=== PATIENT | male | born 1985 | race Caucasian/White ===

== ENCOUNTER 2020-06-01 12:06 | Outpatient (REF) | payer OTHER, SELFPAY ==
--- NOTE | 2020-06-01 15:45 | P.PNGI_ITS ---
Subjective Subjective Date of Service: 06/01/20 Interval History: New onset Crohn's Disease--Patient has been feeling better since discharge from hospital. He is taking his Prednisone 10mg BID. Abdomen less tender. Appetite is good. His bowels are moving twice daily. No fever, no nausea no pain. Physical Exam Vital Signs and I&O and Narrative: Vital Signs and I&O: Intake & Output 05/31/20 06/01/20 06/01/20 18:59 06:59 18:59 Weight 207 lb BP-124/87; P-61; R-16; Temp-97.6 Const: General: cooperative, healthy appearing and comfortable Orientation/consciousness: oriented to person, oriented to place and oriented to time Limitations: no limitations HENMT: Head: Yes normal to inspection Resp: Effort & Inspection: normal respiratory effort Auscultation: clear to auscultation bilaterally Cardio: Rate: regular rate Rhythm: regular rhythm Heart sounds: no murmurs GI: Inspection: Yes obesity Palpation (GI): Soft to palpation, nontender and no guarding Auscultation: normal bowel sounds Rectal Exam - Male: Yes deferred Skin: Lesions: lesion noted (anterior ortiz rash less prominent) Neuro: General: oriented to person, oriented to place and oriented to time Extrem: General: Yes normal to inspection, Yes no clubbing, cyanosis or edema and Yes no calf tenderness Progress Note: A&P Assessment and plan (1) Crohns disease of small intestine: Status: Acute Assessment and Plan: Patient in med short stay --he will have labs ordered for next week to be done FRI--Friday Continue all meds. Fall Risk Details Current Medications: Current Medications Generic Name Dose Route Start Last Admin Trade Name Freq PRN Reason Stop Dose Admin Infliximab 500 mg/ Sodium 250 mls @ 125 mls/hr 06/01/20 12:45 Chloride IV ONCE OUMAR Time Spent With Patient Time: Total time spent is greater than 50% in coordination of care (as d ocumented) at patient's floor/unit and/or counseling patient: 30minutes with face to face 20minutes--patient and . Time with patient: 25 - 35 minutes
== END 2020-06-01 12:07 | disposition home or self-care (01) ==
LOC: HO.MDS 12:06
PROVIDERS: Visit Provider Internal Medicine Gastroenterology
DX: K50.00 Crohn's disease of small intestine without complications (principal)

== ENCOUNTER 2020-06-07 07:15 | Outpatient (REF) | payer OTHER, SELFPAY ==
[2020-06-07 08:06] LABS: MANUAL DIFF FLAG NO
[2020-06-07 08:14] LABS: Basophils Percent Auto 0.3 % (0-2); Eosinophils Absolute Auto 0.2 X10*3/uL (0.0-0.4); Eosinophils Percent Auto 1.8 % (0-4); Hematocrit 43.2 % (42-52); Hemoglobin 13.5 g/dl (14.0-18.0); Imm Gran Abs Auto 0.07 X10*3/uL (0.00-0.03); Imm Gran Pct Auto 0.5 % (0.0-0.4); Lymphocytes Absolute Auto 1.1 X10*3/uL (1.2-4.9); Lymphocytes Percent Auto 8.2 % (20-40); Mean Corpuscular HGB Conc 31.3 g/dl (31.0-36.0); Mean Corpuscular Hemoglobin 27.1 pg (27.0-33.0); Mean Corpuscular Volume 86.6 fL (80-98); Mean Platelet Volume 11.6 fL (9.4-12.4); Monocytes Absolute Auto 1.4 X10*3/uL (0.1-1.2); Monocytes Percent Auto 10.7 % (2-11); Neutrophils Percent Auto 78.5 % (45-73); Platelet Count 376 X10*3/uL (160-400); Red Blood Count 4.99 X10*6/uL (4.60-5.80); Red Cell Distribution Width 16.1 % (11.0-16.0); White Blood Count 12.7 X10*3/uL (4.8-10.8)
[2020-06-07 08:38] LABS: C Reactive Protein 1.07 mg/dL (< or = 0.50)
[2020-06-07 12:43] LABS: Alanine Aminotransferase 12 U/L (0-40); Albumin Level 3.8 g/dL (3.5-5.0); Alkaline Phosphatase 54 U/L (39-117); Anion Gap 10 (12-20); Aspartate Amino Transferase 11 U/L (5-37); Bilirubin Total 0.5 mg/dL (0.0-1.0); Blood Urea Nitrogen 16 mg/dL (9-16); Calcium 8.7 mg/dL (8.4-10.2); Carbon Dioxide 31 mmol/L (22-29); Chloride 101 mmol/L (96-108); Estimated Glomerular Filt Rate > 60; Glucose Random 84 mg/dL (60-115); Potassium 4.3 mmol/l (3.3-5.1); Sodium 138 mmol/L (135-145); Total Protein 5.9 g/dL (6.5-8.0)
== END 2020-06-07 07:16 | disposition home or self-care (01) ==
LOC: HO.LDS 07:15
PROVIDERS: PCP Internal Medicine; Visit Provider Internal Medicine Gastroenterology
DX: K50.00 Crohn's disease of small intestine without complications (principal)
CPT/HCPCS: 36415; 80053; 85025; 86140

== ENCOUNTER 2020-06-15 12:58 | Outpatient (REF) | payer OTHER, SELFPAY | END 2020-06-15 12:59 | disposition home or self-care (01) | LOC: HO.MDS 12:58 | PROVIDERS: PCP Internal Medicine; Visit Provider Internal Medicine Gastroenterology | DX: K50.00 Crohn's disease of small intestine without complications (principal) | CPT/HCPCS: 96413; 96415 ==

== ENCOUNTER 2020-06-28 16:42 | Outpatient (REF) | payer OTHER, SELFPAY ==
[2020-06-28 17:32] LABS: MANUAL DIFF FLAG NO
[2020-06-28 17:46] LABS: Basophils Percent Auto 0.2 % (0-2); Eosinophils Absolute Auto 0.1 X10*3/uL (0.0-0.4); Eosinophils Percent Auto 0.6 % (0-4); Hematocrit 42.2 % (42-52); Hemoglobin 12.8 g/dl (14.0-18.0); Imm Gran Abs Auto 0.02 X10*3/uL (0.00-0.03); Imm Gran Pct Auto 0.2 % (0.0-0.4); Lymphocytes Absolute Auto 1.1 X10*3/uL (1.2-4.9); Mean Corpuscular HGB Conc 30.3 g/dl (31.0-36.0); Mean Corpuscular Hemoglobin 26.8 pg (27.0-33.0); Mean Corpuscular Volume 88.3 fL (80-98); Mean Platelet Volume 11.8 fL (9.4-12.4); Monocytes Absolute Auto 0.6 X10*3/uL (0.1-1.2); Monocytes Percent Auto 6.7 % (2-11); Neutrophils Percent Auto 79.3 % (45-73); Platelet Count 296 X10*3/uL (160-400); Red Blood Count 4.78 X10*6/uL (4.60-5.80); Red Cell Distribution Width 15.5 % (11.0-16.0); White Blood Count 8.8 X10*3/uL (4.8-10.8)
[2020-06-28 18:10] LABS: Alanine Aminotransferase 14 U/L (0-40); Albumin Level 4.3 g/dL (3.5-5.0); Alkaline Phosphatase 55 U/L (39-117); Anion Gap 14 (12-20); Aspartate Amino Transferase 14 U/L (5-37); Bilirubin Total 0.2 mg/dL (0.0-1.0); Blood Urea Nitrogen 17 mg/dL (9-16); C Reactive Protein 0.08 mg/dL (< or = 0.50); Calcium 9.1 mg/dL (8.4-10.2); Carbon Dioxide 30 mmol/L (22-29); Chloride 99 mmol/L (96-108); Estimated Glomerular Filt Rate > 60; Glucose Random 94 mg/dL (60-115); Potassium 4.5 mmol/l (3.3-5.1); Sodium 138 mmol/L (135-145); Total Protein 6.6 g/dL (6.5-8.0)
== END 2020-06-28 16:43 | disposition home or self-care (01) ==
LOC: HO.LAB 16:42
PROVIDERS: PCP Internal Medicine; Visit Provider Internal Medicine Gastroenterology
DX: K50.00 Crohn's disease of small intestine without complications (principal)
CPT/HCPCS: 36415; 80053; 85025; 86140

== ENCOUNTER 2020-07-12 16:40 | Outpatient (REF) | payer OTHER, SELFPAY ==
[2020-07-12 17:07] LABS: MANUAL DIFF FLAG NO
[2020-07-12 17:13] LABS: Basophils Percent Auto 0.1 % (0-2); Eosinophils Absolute Auto 0.1 X10*3/uL (0.0-0.4); Hematocrit 40.2 % (42-52); Hemoglobin 12.7 g/dl (14.0-18.0); Imm Gran Abs Auto 0.02 X10*3/uL (0.00-0.03); Imm Gran Pct Auto 0.3 % (0.0-0.4); Lymphocytes Absolute Auto 1.1 X10*3/uL (1.2-4.9); Lymphocytes Percent Auto 15.2 % (20-40); Mean Corpuscular HGB Conc 31.6 g/dl (31.0-36.0); Mean Corpuscular Volume 88.7 fL (80-98); Mean Platelet Volume 11.2 fL (9.4-12.4); Monocytes Absolute Auto 0.6 X10*3/uL (0.1-1.2); Monocytes Percent Auto 8.1 % (2-11); Neutrophils Absolute Auto 5.5 X10*3/uL (2.0-8.3); Neutrophils Percent Auto 75.3 % (45-73); Platelet Count 271 X10*3/uL (160-400); Red Blood Count 4.53 X10*6/uL (4.60-5.80); White Blood Count 7.3 X10*3/uL (4.8-10.8)
[2020-07-12 17:40] LABS: Alanine Aminotransferase 17 U/L (0-40); Albumin Level 4.1 g/dL (3.5-5.0); Alkaline Phosphatase 54 U/L (39-117); Anion Gap 14 (12-20); Aspartate Amino Transferase 15 U/L (5-37); Bilirubin Total 0.3 mg/dL (0.0-1.0); Blood Urea Nitrogen 18 mg/dL (9-16); C Reactive Protein 0.57 mg/dL (< or = 0.50); Calcium 8.7 mg/dL (8.4-10.2); Carbon Dioxide 28 mmol/L (22-29); Chloride 102 mmol/L (96-108); Estimated Glomerular Filt Rate > 60; Glucose Random 90 mg/dL (60-115); Potassium 4.2 mmol/l (3.3-5.1); Sodium 140 mmol/L (135-145); Total Protein 6.4 g/dL (6.5-8.0)
== END 2020-07-12 16:41 | disposition home or self-care (01) ==
LOC: HO.LAB 16:40
PROVIDERS: PCP Internal Medicine; Visit Provider Internal Medicine Gastroenterology
DX: K50.00 Crohn's disease of small intestine without complications (principal)
CPT/HCPCS: 36415; 80053; 85025; 86140

== ENCOUNTER 2020-07-13 12:53 | Outpatient (REF) | payer OTHER, SELFPAY ==
--- NOTE | 2020-08-28 20:02 | CONS_ITS ---
DATE OF SERVICE: 07/13/2020 HISTORY OF PRESENT ILLNESS: The patient is a very pleasant 34-year-old [place] male who speaks reasonably good American. He is currently being seen @ his medical short-stay admission for his 3rd Remicade infusion. A quick reminder, the patient had presented at [facility] 05/23/20 acutely with abdominal pain. His evaluation had shown the presence of significant Crohn's disease involving 20 cm of the distal ileum and area of the cecum and right colon. His initial Remicade infusion was 06/01/2020. This is now his 3rd. His Remicade dosing is rounded off to 500 mg infusion dose. He is on a 5 mg per kg dosage plan. He weighed in today at 94.09 kg. Only listed allergy is penicillin. The patient tells me that he feels that he has been doing well. He is eating better. His weight has stabilized. He has been able to decrease on our sliding scale his prednisone dosing. He is concerned particularly about how his disease will affect his future. He says that he is not used to having to explaining dietary choices or avoidance of alcohol when at family gatherings. PHYSICAL EXAMINATION: Vital signs at the time of his presentation, temperature 97.7, pulse rate 63, respirations 20, blood pressure 144/77. O2 saturation 97. Constitutionally, the patient is a mildly obese male, in no acute distress. Chest is clear to auscultation and percussion. Heart is regular rate and rhythm. Abdomen is mildly distended with some degree of central obesity. No focal findings. No masses, no tenderness. Extremities are without clubbing, cyanosis, or edema. LABORATORY DATA: Laboratory testing has been done on the day before his infusion with the hemoglobin of 12.7, hematocrit of 40.2, white count of 73, and there is a normal differential. CRP on 07/12 was 0.5 (reminder, on admission 05/24, the patient's CRP was greater than 11. Repeat on 05/26 was 8.79. On 06/07, it had improved down to the level of 1.07). TPMT testing has come back as normal metabolism. Serology shows that he is hepatitis B antigen negative, hepatitis B surface antibody positive (consistent with hepatitis B vaccine). Findings from the colonoscopy done on 05/25, reminder is, the biopsies of the area of the terminal ileum showed focal active inflammation and cryptic disarray. Cecal biopsy showed chronically focally active colitis and the rest of the colonic biopsies were negative. Initial CAT scan was on 05/23/2020 with the findings consistent with bowel wall thickening and edema significant in the ascending colon with involvement of the distal small bowel including the terminal ileum. There was a small volume of fluid in the right lower quadrant, mesentery adjacent to where the inflammation was. This did not meet the criteria for either abscess or free air. No obstruction was noted on this exam. I again counseled the patient that the Crohn's disease is unfortunately a chronic recurring disease. The most important aspect when the patient is diagnosed, he is to get the disease under control both clinically and endoscopically as well as imaging. He appears to be improving with the Remicade infusions so that we are able to continue to taper his oral prednisone therapy. We will continue to address his questions over time. He is concerned about whether or not he is going to need to be on medicines all the time. He has experienced some flushing with minimal ingestion of alcohol. He has been avoiding beef and pork, these 2 meats are part of his fairly regular diet. He has not gotten his flu shot as of yet. PLAN: Continue Remicade infusions at 8 week intervals after this infusion, laboratory testing to be done in a week before the infusion if possible, day of the infusion if necessary. Further elucidation at this time of vitamin D level as well as zinc levels would be appropriate. The intent is to start azathioprine to assist with some adjunct to the Remicade to prevent, hopefully, improve or lessen the likelihood of the patient developing any antibodies to the medication. Further concerns will be continued to be addressed as his clinical status improves. Ivet Perry MD MEN/MODL / [id number] Time involved directly with the patient was 20 minutes. ROGERIOD
== END 2020-07-13 12:54 | disposition home or self-care (01) ==
LOC: HO.MDS 12:53
PROVIDERS: Visit Provider Internal Medicine Gastroenterology
DX: K50.00 Crohn's disease of small intestine without complications (principal)
CPT/HCPCS: 96413; 96415; J1745

== ENCOUNTER 2020-07-28 09:01 | Outpatient (REF) | payer OTHER, SELFPAY ==
--- NOTE | 2020-07-28 09:49 | MR_ITS ---
EXAMINATION: MR ABDOMEN WITHOUT AND WITH CONTRAST MR PELVIS WITHOUT AND WITH CONTRAST CLINICAL INFORMATION: Crohn's disease of small intestine without complications; K50.00. Age 34. COMPARISON: CT abdomen and pelvis with contrast 05/23/2020. TECHNIQUE: MR abdomen and MR pelvis are performed without and with use of 9 mL intravenous Gadavist gadolinium contrast. Imaging is performed in 3 planes. Patient had approximately 50 oz. of oral Breeza and 1 cup of water prior to imaging. FINDINGS: LUNG BASES: The visualized lung bases are unremarkable. LIVER, GALLBLADDER, AND BILIARY TREE: The liver is normal in size, smooth in contour, and normal in signal. There is no signal loss on out of phase imaging to suggest hepatic steatosis. No focal hepatic lesion or biliary ductal dilatation is present. The gallbladder is unremarkable with no evidence of gallbladder wall thickening, or obvious pericholecystic inflammatory changes. Common duct unremarkable. PANCREAS: Normal in size, contour, signal, and uniform enhancement. No peripancreatic inflammatory changes. No pancreatic ductal distention. SPLEEN: Normal. ADRENAL GLANDS: Normal. KIDNEYS AND URETERS: The kidneys are normal in size, shape, and enhance symmetrically. No hydronephrosis. No perinephric stranding. GASTROINTESTINAL TRACT: There are focal inflammatory changes involving the terminal ileum, approximately 5 cm in length. There is moderate wall thickening approximately 7 mm, low signal on T2, with hyperenhancement following gadolinium contrast. There is minor mesenteric inflammation adjacent to the ileocecal valve. No proximal obstruction. No definite involvement ascending colon. The remainder of the bowel is unremarkable. Normal appendix. No ascites or fluid collection. The findings represent marked improvement when compared with the CT 05/23/2020 which showed 20 cm length of ileal involvement along with inflammatory changes in the ascending colon, mesenteric stranding, and mild ascites. ABDOMINAL WALL: There is borderline/small fat-containing umbilical hernia and small fat-containing right inguinal hernia similar to CT. No significant hernia. LYMPH NODES: No lymphadenopathy. VASCULAR: Unremarkable. PELVIS: Unremarkable. OSSEOUS STRUCTURES: Marrow signal normal. No sacroiliitis. MR/MR abdomen wo/w con IMPRESSION: Focal active inflammatory changes distal 5 cm terminal ileum with low signal T2, moderate wall thickening and hyperenhancement following contrast. No proximal obstruction or ascites. Findings are much improved when compared with recent CT abdomen and pelvis 05/23/2020.
== END 2020-07-28 09:02 | disposition home or self-care (01) ==
LOC: HO.MRI 09:01
PROVIDERS: Visit Provider Internal Medicine Gastroenterology
DX: K50.00 Crohn's disease of small intestine without complications (principal)
CPT/HCPCS: 72197; 74183; A9585

== ENCOUNTER 2020-08-31 11:40 | Outpatient (REF) | payer OTHER, SELFPAY ==
[2020-08-31 12:39] LABS: MANUAL DIFF FLAG NO
[2020-08-31 12:41] LABS: Basophils Percent Auto 0.4 % (0-2); Eosinophils Absolute Auto 0.2 X10*3/uL (0.0-0.4); Eosinophils Percent Auto 2.3 % (0-4); Hematocrit 46.3 % (42-52); Hemoglobin 14.8 g/dl (14.0-18.0); Imm Gran Abs Auto 0.02 X10*3/uL (0.00-0.03); Imm Gran Pct Auto 0.2 % (0.0-0.4); Lymphocytes Percent Auto 12.4 % (20-40); Mean Corpuscular Hemoglobin 27.9 pg (27.0-33.0); Mean Corpuscular Volume 87.2 fL (80-98); Mean Platelet Volume 11.8 fL (9.4-12.4); Monocytes Absolute Auto 0.6 X10*3/uL (0.1-1.2); Monocytes Percent Auto 7.2 % (2-11); Neutrophils Absolute Auto 6.5 X10*3/uL (2.0-8.3); Neutrophils Percent Auto 77.5 % (45-73); Platelet Count 309 X10*3/uL (160-400); Red Blood Count 5.31 X10*6/uL (4.60-5.80); Red Cell Distribution Width 14.7 % (11.0-16.0); White Blood Count 8.3 X10*3/uL (4.8-10.8)
[2020-08-31 13:16] LABS: Alanine Aminotransferase 17 U/L (0-40); Albumin Level 4.9 g/dL (3.5-5.0); Alkaline Phosphatase 54 U/L (39-117); Anion Gap 11 (12-20); Aspartate Amino Transferase 15 U/L (5-37); Bilirubin Total 0.5 mg/dL (0.0-1.0); Blood Urea Nitrogen 16 mg/dL (9-16); C Reactive Protein 0.05 mg/dL (< or = 0.50); Calcium 9.7 mg/dL (8.4-10.2); Carbon Dioxide 33 mmol/L (22-29); Chloride 100 mmol/L (96-108); Estimated Glomerular Filt Rate > 60; Glucose Random 92 mg/dL (60-115); Sodium 140 mmol/L (135-145); Total Protein 7.6 g/dL (6.5-8.0)
[2020-09-05 03:18] LABS: Zinc 95 mcg/dL (60-130)
[2020-09-05 16:07] LABS: Vitamin D 25-OH, D2 <4 ng/mL; Vitamin D 25-OH, D3 39 ng/mL; Vitamin D 25-OH, Total 39 ng/mL (30-100)
[2020-09-06 11:05] LABS: 6-MMPN 1582 (<5700); 6-TGN 122 (235-400)
== END 2020-08-31 11:41 | disposition home or self-care (01) ==
LOC: HO.LAB 11:40
PROVIDERS: Visit Provider Internal Medicine Gastroenterology
DX: K50.00 Crohn's disease of small intestine without complications (principal)
CPT/HCPCS: 36415; 80053; 82306; 84630; 85025; 86140

== ENCOUNTER 2020-09-07 13:01 | Outpatient (REF) | payer OTHER, SELFPAY ==
--- NOTE | 2020-09-07 15:11 | PM.GIPN ---
Subjective Subjective Date of Service: 09/07/20 Interval History: 34 yo male who has recently dx-Significant complex Crohn's Disease. He is here for his Remicade infusion--medial short stay. He tells me that he has continued to feel better. Less abdominal pain. DATE OF SERVICE--WAS 09/07/20--MEDICAL SHORT STAY UNIT. Physical Exam Vital Signs: Vital Signs: Temp: 98.8; BP: 138/94; P-66; R-16 Const: General: healthy appearing and alert; No acute distress Nutritional Appearance: overweight Orientation/consciousness: patient oriented x3 Resp: Effort & Inspection: normal respiratory effort Auscultation: clear to auscultation bilaterally Cardio: Rate: regular rate Rhythm: regular rhythm Heart sounds: no murmurs Skin: General skin exam: no rashes or lesions noted and elasticity normal Lesions: no lesions Neuro: General: patient oriented x3 Extrem: General: Yes no clubbing, cyanosis or edema Progress Note: A&P Assessment and plan (1) Crohns disease of small intestine: Status: Acute Assessment and Plan: Weight--200.6 Taking his Azathioprine--50mg BID Still on Prednisone 10mg--Tomorrow decrease to 7.5mg for 7 days, then 5mg for 7 days, then stay on 5mg qod--call office in 4weeks. Will consider stopping Steroids. Will prob need increased dosing of the Azathioprine. Time Spent With Patient Time: Total time spent is greater than 50% in coordination of care (as documented) at patient's floor/unit and/or counseling patient: 20 minutes. Prednisone taper reviewed. Time with patient: 15 - 24 minutes
== END 2020-09-07 13:02 | disposition home or self-care (01) ==
LOC: HO.MDS 13:01
PROVIDERS: PCP Internal Medicine; Visit Provider Internal Medicine Gastroenterology
DX: K50.00 Crohn's disease of small intestine without complications (principal)
CPT/HCPCS: 96413; 96415; 99225; J1745

== ENCOUNTER 2020-10-05 16:43 | Outpatient (REF) | payer OTHER, SELFPAY ==
[2020-10-05 17:38] LABS: MANUAL DIFF FLAG NO
[2020-10-05 17:44] LABS: Basophils Absolute Auto 0.1 X10*3/uL (0.0-0.2); Basophils Percent Auto 0.7 % (0-2); Eosinophils Absolute Auto 0.9 X10*3/uL (0.0-0.4); Eosinophils Percent Auto 12.4 % (0-4); Hematocrit 41.1 % (42-52); Hemoglobin 12.9 g/dl (14.0-18.0); Imm Gran Abs Auto 0.02 X10*3/uL (0.00-0.03); Imm Gran Pct Auto 0.3 % (0.0-0.4); Lymphocytes Absolute Auto 1.3 X10*3/uL (1.2-4.9); Lymphocytes Percent Auto 18.8 % (20-40); Mean Corpuscular HGB Conc 31.4 g/dl (31.0-36.0); Mean Corpuscular Hemoglobin 28.1 pg (27.0-33.0); Mean Corpuscular Volume 89.5 fL (80-98); Mean Platelet Volume 11.9 fL (9.4-12.4); Monocytes Absolute Auto 0.8 X10*3/uL (0.1-1.2); Monocytes Percent Auto 10.8 % (2-11); Platelet Count 284 X10*3/uL (160-400); Red Blood Count 4.59 X10*6/uL (4.60-5.80); Red Cell Distribution Width 14.6 % (11.0-16.0)
[2020-10-05 18:01] LABS: C Reactive Protein 0.27 mg/dL (< or = 0.50)
== END 2020-10-05 16:44 | disposition home or self-care (01) ==
LOC: HO.LAB 16:43
PROVIDERS: PCP Internal Medicine; Visit Provider Internal Medicine Gastroenterology
DX: K50.00 Crohn's disease of small intestine without complications (principal)
CPT/HCPCS: 36415; 85025; 86140

== ENCOUNTER 2020-10-19 16:53 | Outpatient (REF) | payer OTHER, SELFPAY ==
[2020-10-26 11:52] LABS: 6-MMPN 9129 (<5700); 6-TGN 339 (235-400)
== END 2020-10-19 16:54 | disposition home or self-care (01) ==
LOC: HO.LAB 16:53
PROVIDERS: PCP Internal Medicine; Visit Provider Internal Medicine Gastroenterology
DX: K50.00 Crohn's disease of small intestine without complications (principal)
CPT/HCPCS: 36415

== ENCOUNTER 2020-11-02 12:00 | Outpatient (REF) | payer OTHER, SELFPAY | END 2020-11-02 12:01 | disposition home or self-care (01) | LOC: HO.MDS 12:00 | PROVIDERS: PCP Internal Medicine; Visit Provider Internal Medicine Gastroenterology | DX: K50.00 Crohn's disease of small intestine without complications (principal) | CPT/HCPCS: 96413; 96415; J1745 ==

== ENCOUNTER 2020-12-01 08:30 | Outpatient (REF) | payer OTHER, SELFPAY ==
[2020-12-01 09:12] LABS: MANUAL DIFF FLAG NO
[2020-12-01 09:15] LABS: Basophils Percent Auto 0.6 % (0-2); Eosinophils Absolute Auto 0.4 X10*3/uL (0.0-0.4); Eosinophils Percent Auto 7.9 % (0-4); Hematocrit 39.5 % (42-52); Hemoglobin 12.8 g/dl (14.0-18.0); Imm Gran Abs Auto 0.01 X10*3/uL (0.00-0.03); Imm Gran Pct Auto 0.2 % (0.0-0.4); Lymphocytes Absolute Auto 0.7 X10*3/uL (1.2-4.9); Lymphocytes Percent Auto 14.1 % (20-40); Mean Corpuscular HGB Conc 32.4 g/dl (31.0-36.0); Mean Corpuscular Hemoglobin 29.5 pg (27.0-33.0); Mean Platelet Volume 11.8 fL (9.4-12.4); Monocytes Absolute Auto 0.7 X10*3/uL (0.1-1.2); Monocytes Percent Auto 13.2 % (2-11); Neutrophils Absolute Auto 3.3 X10*3/uL (2.0-8.3); Platelet Count 212 X10*3/uL (160-400); Red Blood Count 4.34 X10*6/uL (4.60-5.80); Red Cell Distribution Width 15.7 % (11.0-16.0); White Blood Count 5.2 X10*3/uL (4.8-10.8)
[2020-12-01 09:37] LABS: Alanine Aminotransferase 24 U/L (0-40); Albumin Level 4.2 g/dL (3.5-5.0); Alkaline Phosphatase 53 U/L (39-117); Anion Gap 10 (12-20); Aspartate Amino Transferase 20 U/L (5-37); Bilirubin Total 0.5 mg/dL (0.0-1.0); Blood Urea Nitrogen 12 mg/dL (9-16); C Reactive Protein 1.56 mg/dL (< or = 0.50); Calcium 8.9 mg/dL (8.4-10.2); Carbon Dioxide 30 mmol/L (22-29); Chloride 103 mmol/L (96-108); Estimated Glomerular Filt Rate > 60; Glucose Random 112 mg/dL (60-115); Potassium 4.1 mmol/L (3.3-5.1); Sodium 139 mmol/L (135-145); Total Protein 6.4 g/dL (6.5-8.0)
[2020-12-06 14:37] LABS: 6-MMPN 582 (<5700); 6-TGN 200 (235-400)
[2020-12-07 07:46] LABS: Prometheus ANSER IFX SEE SEPARATE REPORT
== END 2020-12-01 08:31 | disposition home or self-care (01) ==
LOC: HO.LAB 08:30
PROVIDERS: PCP Internal Medicine; Visit Provider Internal Medicine Gastroenterology
DX: K50.00 Crohn's disease of small intestine without complications (principal)
CPT/HCPCS: 36415; 80053; 80230; 82542; 85025; 86140

== ENCOUNTER 2020-12-13 16:41 | Outpatient (REF) | payer OTHER, SELFPAY ==
[2020-12-13 18:08] LABS: MANUAL DIFF FLAG NO
[2020-12-13 18:10] LABS: Basophils Percent Auto 0.7 % (0-2); Eosinophils Absolute Auto 0.5 X10*3/uL (0.0-0.4); Eosinophils Percent Auto 8.9 % (0-4); Hematocrit 40.4 % (42-52); Hemoglobin 12.7 g/dl (14.0-18.0); Imm Gran Abs Auto 0.01 X10*3/uL (0.00-0.03); Imm Gran Pct Auto 0.2 % (0.0-0.4); Lymphocytes Absolute Auto 1.2 X10*3/uL (1.2-4.9); Lymphocytes Percent Auto 20.2 % (20-40); Mean Corpuscular HGB Conc 31.4 g/dl (31.0-36.0); Mean Corpuscular Hemoglobin 28.5 pg (27.0-33.0); Mean Corpuscular Volume 90.8 fL (80-98); Mean Platelet Volume 12.9 fL (9.4-12.4); Monocytes Absolute Auto 0.6 X10*3/uL (0.1-1.2); Monocytes Percent Auto 9.3 % (2-11); Neutrophils Absolute Auto 3.7 X10*3/uL (2.0-8.3); Neutrophils Percent Auto 60.7 % (45-73); Platelet Count 278 X10*3/uL (160-400); Red Blood Count 4.45 X10*6/uL (4.60-5.80); Red Cell Distribution Width 15.7 % (11.0-16.0)
[2020-12-13 18:30] LABS: Alanine Aminotransferase 30 U/L (0-40); Albumin Level 4.3 g/dL (3.5-5.0); Alkaline Phosphatase 54 U/L (39-117); Anion Gap 13 (12-20); Aspartate Amino Transferase 32 U/L (5-37); Bilirubin Total 0.4 mg/dL (0.0-1.0); Blood Urea Nitrogen 14 mg/dL (9-16); C Reactive Protein 0.06 mg/dL (< or = 0.50); Calcium 9.1 mg/dL (8.4-10.2); Carbon Dioxide 28 mmol/L (22-29); Chloride 104 mmol/L (96-108); Estimated Glomerular Filt Rate > 60; Glucose Random 84 mg/dL (60-115); Sodium 140 mmol/L (135-145); Total Protein 6.6 g/dL (6.5-8.0)
== END 2020-12-13 16:42 | disposition home or self-care (01) ==
LOC: HO.LAB 16:41
PROVIDERS: PCP Internal Medicine; Visit Provider Internal Medicine Gastroenterology
DX: K50.00 Crohn's disease of small intestine without complications (principal)
CPT/HCPCS: 36415; 80053; 85025; 86140

== ENCOUNTER 2020-12-25 11:59 | Outpatient (REF) | payer OTHER, SELFPAY ==
--- NOTE | 2020-12-25 12:58 | PM.GIPN ---
Subjective Subjective Date of Service: 12/25/20 Interval History: 35 yo male with known Crohn's Disease is in Medical Short stary today for his Remicade infusion. He says he is ok today. He has days where he awakens with a slight headache and does not feel great--but this passes as the day goes on. He is trying to follow a healthier diet. He would like to take a Protein supplement. He is starting to exercise more regularly. He does note a left sided back discomfort at times. (He does lift items @ work usually no heavier than 25 #). A couple weeks ago he had had an abdominal pain-moderate intensity. It went away within 24-48hr. He did complete the antibx that I had called in for him. Physical Exam Vital Signs: Vital Signs: TEMP:98.1; P-68 regular; R-16; BP 148/93 Resp: Effort & Inspection: normal respiratory effort and able to speak in complete sentences Cardio: Rate: regular rate Rhythm: regular rhythm GI: Palpation (GI): Soft to palpation, nontender, no guarding and no masses Skin: General skin exam: no rashes or lesions noted Extrem: General: Yes no clubbing, cyanosis or edema Progress Note: A&P Assessment and plan (1) Crohns disease of small intestine: Status: Acute Assessment and Plan: From July:[address] [address]Pctxeiqy Resonance ReportSigned Patient: Tutu KrishnanarMR#: [id number]: 1985Acct:[id number]/Sex: 34 / MADM Date: 07/28/20Loc: [facility].MRIAttending Dr: Ivet Perry MD Ordering Physician: Ivet Perry MD Date of Service: 07/28/20 Procedure(s): MR abdomen wo/w con Accession Number(s): [id number] cc: Ivet Perry MD~ EXAMINATION: MR ABDOMEN WITHOUT AND WITH CONTRAST MR PELVIS WITHOUT AND WITH CONTRAST CLINICAL INFORMATION: Crohn's disease of small intestine without complications; K50.00. Age 34. COMPARISON: CT abdomen and pelvis with contrast 05/23/2020. TECHNIQUE: MR abdomen and MR pelvis are performed without and with use of 9 mL intravenous Gadavist gadolinium contrast. Imaging is performed in 3 planes. Patient had approximately 50 oz. of oral Breeza and 1 cup of water prior to imaging. FINDINGS: LUNG BASES: The visualized lung bases are unremarkable. LIVER, GALLBLADDER, AND BILIARY TREE: The liver is normal in size, smooth in contour, and normal in signal. There is no signal loss on out of phase imaging to suggest hepatic steatosis. No focal hepatic lesion or biliary ductal dilatation is present. The gallbladder is unremarkable with no evidence of gallbladder wall thickening, or obvious pericholecystic inflammatory changes. Common duct unremarkable. PANCREAS: Normal in size, contour, signal, and uniform enhancement. No peripancreatic inflammatory changes. No pancreatic ductal distention. SPLEEN: Normal. ADRENAL GLANDS: Normal. KIDNEYS AND URETERS: The kidneys are normal in size, shape, and enhance symmetrically. No hydronephrosis. No perinephric stranding. GASTROINTESTINAL TRACT: There are focal inflammatory changes involving the terminal ileum, approximately 5 cm in length. There is moderate wall thickening approximately 7 mm, low signal on T2, with hyperenhancement following gadolinium contrast. There is minor mesenteric inflammation adjacent to the ileocecal valve. No proximal obstruction. No definite involvement ascending colon. The remainder of the bowel is unremarkable. Normal appendix. No ascites or fluid collection. The findings represent marked improvement when compared with the CT 05/23/2020 which showed 20 cm length of ileal involvement along with inflammatory changes in the ascending colon, mesenteric stranding, and mild ascites. DISCUSSION: Patient had significant disease @ time of presentation. Unclear with recent episode if there was a microabcess which cleared with antibx or a miniflare. Discussed with patient repeating an MRE in early January to reassess response to treatment or any suggestion of progressive disease. At that time labs to be repeated ? to include Pre infusion Remicade/ab levels. I would seriously consider referring to [facility] who is following some of my other patients.--Any earlier symptoms imaging to be done sooner. Did discuss protein calorie nutrition and exercise. Fall Risk Details Current Medications: Current Medications Generic Name Dose Route Start Last Admin Trade Name Freq PRN Reason Stop Dose Admin Infliximab 500 mg/ Sodium 250 mls @ 125 mls/hr 12/25/20 12:45 Chloride IV 12/25/20 14:44 ONCE ONE Time Spent With Patient Time: Total time spent is greater than 50% in coordination of care (as documented) at patient's floor/unit and/or counseling patient:35minutes Time with patient: 25 - 35 minutes
== END 2020-12-25 12:00 | disposition home or self-care (01) ==
LOC: HO.MDS 11:59
PROVIDERS: PCP Internal Medicine; Visit Provider Internal Medicine Gastroenterology
DX: K50.00 Crohn's disease of small intestine without complications (principal)
CPT/HCPCS: 96413; 96415; 99225; J1745

== ENCOUNTER 2021-02-08 09:11 | Outpatient (REF) | payer OTHER, SELFPAY ==
--- NOTE | ~2021-02-08 | MR_ITS ---
EXAMINATION: MRI ABDOMEN AND PELVIS (MR ENTEROGRAPHY) WITH AND WITHOUT CONTRAST CLINICAL INFORMATION: Exam K50.00 - Crohn's disease of small intestine COMPARISON: 07/28/2020 exam TECHNIQUE: Multiple routine MRI sequences through the abdomen and pelvis were obtained on a high-field 1.5 Ena MRI. Pre-and postcontrast images with 8.5 mL of gadavist intravenous contrast was utilized. Bowel distention with Breeza oral contrast was given prior to imaging. FINDINGS: The small bowel was well distended with oral contrast. The bowel motion peristalsis did not significantly degrade the interpretation of the study. There is mild mucosal enhancement and thickening seen to the terminal ileum but this has shown significant improvement from the prior study. The mild wall thickening and enhancement extending for length of approximately 3 cm currently. There is no evidence for fixed stenosis or prestenotic dilatation in the distal ileum proximal to this region. No significant perienteric inflammatory changes currently either. I do not appreciate any obvious fistulization or focal conglomeration of bowel loops. No skip lesion seen in the more proximal small bowel. Normal-appearing appendix in the retrocecal location. No evidence for interloop abscess Although tailored to evaluate the bowel, I do not appreciate any focal abnormality within the visualized portions of the liver, gallbladder, kidneys, adrenals, or pancreas. Spleen is mildly prominent measuring 15.1 cm in maximal dimension. MR/MR abdomen wo/w con IMPRESSION: There is been significant improvement from the prior study. There is now some very mild persistent wall thickening and mild mucosal enhancement extending for approximately 3 cm in the terminal ileum. The amount of enhancement and perienteric inflammatory changes has significantly improved from the 07/28/2020 study. I do not appreciate any evidence for obstruction, fistulization, or abscess at this time.
== END 2021-02-08 09:12 | disposition home or self-care (01) ==
LOC: HO.MRI 09:11
PROVIDERS: Visit Provider Internal Medicine Gastroenterology
DX: K50.00 Crohn's disease of small intestine without complications (principal)
CPT/HCPCS: 72197; 74183; A9585

== ENCOUNTER 2021-02-20 12:01 | Outpatient (REF) | payer OTHER, SELFPAY | END 2021-02-20 12:02 | disposition home or self-care (01) | LOC: HO.MDS 12:01 | PROVIDERS: PCP Internal Medicine; Visit Provider Internal Medicine Gastroenterology | DX: K50.00 Crohn's disease of small intestine without complications (principal) | CPT/HCPCS: 96413; 96415; J1745 ==

== ENCOUNTER 2021-03-16 11:53 | Outpatient (REF) | payer OTHER, MEDICAID, SELFPAY ==
[2021-03-16 15:05] LABS: MANUAL DIFF FLAG NO
[2021-03-16 15:09] LABS: Basophils Percent Auto 0.5 % (0-2); Eosinophils Absolute Auto 0.5 X10*3/uL (0.0-0.4); Eosinophils Percent Auto 8.3 % (0-4); Hematocrit 38.7 % (42-52); Hemoglobin 12.3 g/dl (14.0-18.0); Imm Gran Abs Auto 0.02 X10*3/uL (0.00-0.03); Imm Gran Pct Auto 0.4 % (0.0-0.4); Lymphocytes Absolute Auto 1.1 X10*3/uL (1.2-4.9); Lymphocytes Percent Auto 19.6 % (20-40); Mean Corpuscular HGB Conc 31.8 g/dl (31.0-36.0); Mean Corpuscular Hemoglobin 28.9 pg (27.0-33.0); Mean Corpuscular Volume 91.1 fL (80-98); Mean Platelet Volume 12.1 fL (9.4-12.4); Monocytes Absolute Auto 0.4 X10*3/uL (0.1-1.2); Monocytes Percent Auto 7.8 % (2-11); Neutrophils Absolute Auto 3.5 X10*3/uL (2.0-8.3); Neutrophils Percent Auto 63.4 % (45-73); Platelet Count 235 X10*3/uL (160-400); Red Blood Count 4.25 X10*6/uL (4.60-5.80); Red Cell Distribution Width 15.1 % (11.0-16.0); White Blood Count 5.5 X10*3/uL (4.8-10.8)
[2021-03-16 15:35] LABS: Alanine Aminotransferase 23 U/L (0-40); Albumin Level 4.2 g/dL (3.5-5.0); Alkaline Phosphatase 63 U/L (39-117); Anion Gap 11 (12-20); Aspartate Amino Transferase 31 U/L (5-37); Bilirubin Total 0.3 mg/dL (0.0-1.0); Blood Urea Nitrogen 17 mg/dL (9-16); C Reactive Protein 0.04 mg/dL (< or = 0.50); Calcium 9.2 mg/dL (8.4-10.2); Carbon Dioxide 29 mmol/L (22-29); Chloride 106 mmol/L (96-108); Estimated Glomerular Filt Rate > 60; Glucose Random 90 mg/dL (60-115); Potassium 4.6 mmol/L (3.3-5.1); Sodium 141 mmol/L (135-145); Total Protein 6.5 g/dL (6.5-8.0)
[2021-03-16 15:57] LABS: Ferritin 20 ng/mL (20-250)
[2021-03-16 16:06] LABS: Folate 10.1 ng/mL (> or = 4.0); Vitamin B12 251 pg/mL (200-900)
[2021-03-19 20:16] LABS: Zinc 61 mcg/dL (60-130)
== END 2021-03-16 11:54 | disposition home or self-care (01) ==
LOC: HO.LAB 11:53
PROVIDERS: PCP Internal Medicine; Visit Provider Internal Medicine Gastroenterology
DX: K50.00 Crohn's disease of small intestine without complications (principal); K75.81 Nonalcoholic steatohepatitis (NASH); Z79.899 Other long term (current) drug therapy
CPT/HCPCS: 36415; 80053; 82607; 82728; 82746; 84630; 85025; 86140

== ENCOUNTER 2021-04-17 13:45 | Outpatient (REF) | payer OTHER, MEDICAID, SELFPAY | END 2021-04-17 13:46 | disposition home or self-care (01) | LOC: HO.MDS 13:45 | PROVIDERS: Visit Provider Internal Medicine Gastroenterology | DX: K50.00 Crohn's disease of small intestine without complications (principal) | CPT/HCPCS: 96413; 96415; J1745 ==

== ENCOUNTER 2021-05-14 07:16 | Outpatient (REF) | payer OTHER, SELFPAY ==
[2021-05-14 08:33] LABS: MANUAL DIFF FLAG NO
[2021-05-14 08:40] LABS: Basophils Percent Auto 0.5 % (0-2); Eosinophils Absolute Auto 0.5 X10*3/uL (0.0-0.4); Eosinophils Percent Auto 6.9 % (0-4); Hematocrit 40.3 % (42-52); Hemoglobin 12.8 g/dl (14.0-18.0); Imm Gran Abs Auto 0.02 X10*3/uL (0.00-0.03); Imm Gran Pct Auto 0.3 % (0.0-0.4); Lymphocytes Absolute Auto 1.4 X10*3/uL (1.2-4.9); Lymphocytes Percent Auto 18.7 % (20-40); Mean Corpuscular HGB Conc 31.8 g/dl (31.0-36.0); Mean Corpuscular Hemoglobin 28.8 pg (27.0-33.0); Mean Corpuscular Volume 90.6 fL (80-98); Mean Platelet Volume 11.7 fL (9.4-12.4); Monocytes Absolute Auto 0.7 X10*3/uL (0.1-1.2); Monocytes Percent Auto 10.1 % (2-11); Neutrophils Absolute Auto 4.7 X10*3/uL (2.0-8.3); Neutrophils Percent Auto 63.5 % (45-73); Platelet Count 253 X10*3/uL (160-400); Red Blood Count 4.45 X10*6/uL (4.60-5.80); White Blood Count 7.3 X10*3/uL (4.8-10.8)
[2021-05-14 09:02] LABS: Alanine Aminotransferase 23 U/L (0-40); Albumin Level 4.3 g/dL (3.5-5.0); Alkaline Phosphatase 59 U/L (39-117); Anion Gap 10 (12-20); Aspartate Amino Transferase 25 U/L (5-37); Bilirubin Total 0.8 mg/dL (0.0-1.0); Blood Urea Nitrogen 17 mg/dL (9-16); C Reactive Protein 0.04 mg/dL (< or = 0.50); Calcium 9.6 mg/dL (8.4-10.2); Carbon Dioxide 31 mmol/L (22-29); Chloride 102 mmol/L (96-108); Estimated Glomerular Filt Rate > 60; Glucose Random 90 mg/dL (60-115); Potassium 4.2 mmol/L (3.3-5.1); Sodium 139 mmol/L (135-145); Total Protein 6.6 g/dL (6.5-8.0)
== END 2021-05-14 07:17 | disposition home or self-care (01) ==
LOC: HO.LAB 07:16
PROVIDERS: PCP Internal Medicine; Visit Provider Internal Medicine Gastroenterology
DX: K50.00 Crohn's disease of small intestine without complications (principal)
CPT/HCPCS: 36415; 80053; 85025; 86140

== ENCOUNTER 2021-05-24 08:16 | Outpatient (REF) | payer OTHER, SELFPAY ==
[2021-05-29 20:52] LABS: Calprotectin, Fecal 42 mcg/g
== END 2021-05-24 08:17 | disposition home or self-care (01) ==
LOC: HO.LNP 08:16
PROVIDERS: Visit Provider Internal Medicine Gastroenterology
DX: K50.00 Crohn's disease of small intestine without complications (principal)
CPT/HCPCS: 83993

== ENCOUNTER 2021-06-13 12:52 | Outpatient (REF) | payer OTHER, SELFPAY ==
[2021-06-13 14:38] LABS: Hematocrit 39.8 % (42-52); Mean Corpuscular HGB Conc 32.7 g/dl (31.0-36.0); Mean Corpuscular Hemoglobin 29.5 pg (27.0-33.0); Mean Corpuscular Volume 90.5 fL (80-98); Mean Platelet Volume 11.7 fL (9.4-12.4); Platelet Count 245 X10*3/uL (160-400); Red Cell Distribution Width 14.7 % (11.0-16.0); White Blood Count 5.4 X10*3/uL (4.8-10.8)
[2021-06-13 15:21] LABS: Alanine Aminotransferase 22 U/L (0-40); Albumin Level 4.1 g/dL (3.5-5.0); Alkaline Phosphatase 69 U/L (39-117); Anion Gap 11 (12-20); Aspartate Amino Transferase 24 U/L (5-37); Bilirubin Total 0.3 mg/dL (0.0-1.0); Blood Urea Nitrogen 18 mg/dL (9-16); C Reactive Protein 0.03 mg/dL (< or = 0.50); Calcium 9.1 mg/dL (8.4-10.2); Carbon Dioxide 26 mmol/L (22-29); Chloride 103 mmol/L (96-108); Estimated Glomerular Filt Rate > 60; Glucose Random 107 mg/dL (60-115); Potassium 4.3 mmol/L (3.3-5.1); Sodium 136 mmol/L (135-145); Total Protein 6.4 g/dL (6.5-8.0)
[2021-06-13 15:25] LABS: Erythrocyte Sedimentation Rate 5 MM/HR (0-15)
[2021-06-13 17:44] LABS: Appearance Urine CLEAR; Color Urine YELLOW; Glucose Urine UA NEG (NEG); Leukocyte Esterase Urine NEG (NEG); Nitrite Urine NEG (NEG); Specific Gravity - Urine 1.015 (1.005-1.025); Urine Blood NEG (NEG); Urine Ketones NEG (NEG); Urine Protein NEG (NEG-TRACE)
[2021-06-18 10:12] LABS: Zinc 58 mcg/dL (60-130)
== END 2021-06-13 12:53 | disposition home or self-care (01) ==
LOC: HO.MDS 12:52
PROVIDERS: PCP Internal Medicine; Visit Provider Internal Medicine Gastroenterology
DX: K50.00 Crohn's disease of small intestine without complications (principal); R30.0 Dysuria
CPT/HCPCS: 36415; 80053; 80230; 81003; 82542; 84630; 85027; 85652; 86140; 96413; 96415; J1745

== ENCOUNTER 2021-08-08 06:11 | Outpatient (REF) | payer OTHER, SELFPAY ==
--- NOTE | ~2021-08-08 | CT_ITS ---
EXAMINATION: CT ENTEROGRAPHY ABDOMEN AND PELVIS WITH CONTRAST CLINICAL INFORMATION: Periumbilical pain COMPARISON: MR of the abdomen most recent January [address] of the abdomen and pelvis May 2020 TECHNIQUE: Study performed with oral VoLumen (1350 mL) and 480 mL of water to distend the abdomen. The patient was injected with 85 mL Omnipaque 350 intravenous contrast which was administered without adverse effect. Coronal and sagittal reformatted images were obtained at the technologist's workstation. This CT examination was performed using dose optimization techniques as appropriate, variously including the following: *Automated exposure control *Adjustment of mA and/or kV according to patient size (this includes techniques or standardized protocols for targeted exams where dose is matched to indication/reason for exam; i.e. extremities or head) *Use of iterative reconstruction technique DLP: 404 mGy-cm FINDINGS: GASTROINTESTINAL FINDINGS: Stomach: Well-distended and normal in appearance. Small intestine: Satisfactorily distended. There may be minimal wall thickening and enhancement of the terminal ileum. The small bowel is otherwise normal in appearance. Large intestine: Well-distended and normal in appearance. No perirectal changes demonstrated. The appendix is normal. Additional findings: No abnormal enhancement of the vasa recta or significant mesenteric or retroperitoneal lymphadenopathy is seen. No abdominal abscess or fistulous tract demonstrated. ABDOMINAL AND PELVIC CT FINDINGS: Liver, gallbladder, biliary tract: Normal Pancreas: Normal Spleen: Normal Adrenal glands and kidneys: The adrenal glands are normal appearing. There is mild bilateral hydronephrosis. There is bilateral ureteral dilatation, left greater than right. The left ureter is dilated down to the bladder. No renal or ureteral stone is seen. Ureters and bladder: See above. The bladder is normal. Lymphovascular structures: Normal Bones: Normal Lung bases: Normal There is a small umbilical hernia containing fat. CT/CT enterography IMPRESSION: Question minimal wall thickening and enhancement of the terminal ileum. Mild bilateral hydronephrosis. Bilateral ureteral dilatation, left greater than right. This is new or increased from previous exams. No stone seen. Small umbilical hernia.
[2021-08-08] MEDS: Sorbitol/Mannit/Xanth Imaging 500 ML LIQUID 1500 ML PO (09:10)
== END 2021-08-08 06:12 | disposition home or self-care (01) ==
LOC: HO.CT 06:11
PROVIDERS: PCP Internal Medicine; Visit Provider Internal Medicine Gastroenterology
DX: R10.33 Periumbilical pain (principal)
CPT/HCPCS: 74177

== ENCOUNTER 2021-08-08 09:47 | Outpatient (REF) | payer OTHER, SELFPAY | END 2021-08-08 09:48 | disposition home or self-care (01) | LOC: HO.MDS 09:47 | PROVIDERS: PCP Internal Medicine; Visit Provider Internal Medicine Gastroenterology | DX: K50.00 Crohn's disease of small intestine without complications (principal) | CPT/HCPCS: 96413; 96415; J1745 ==

== ENCOUNTER → 2021-08-28 10:35 | Outpatient (BNVA) | payer OTHER, SELFPAY | PROVIDERS: PCP Internal Medicine; Visit Provider Internal Medicine Gastroenterology | DX: K50.00 Crohn's disease of small intestine without complications (principal); N13.30 Unspecified hydronephrosis | CPT/HCPCS: 99212 ==

== ENCOUNTER 2021-10-11 07:50 | Outpatient (REF) | payer OTHER, SELFPAY | END 2021-10-11 07:51 | disposition home or self-care (01) | LOC: HO.MDS 07:50 | PROVIDERS: Visit Provider Internal Medicine Gastroenterology | DX: K50.00 Crohn's disease of small intestine without complications (principal) | CPT/HCPCS: 96413; 96415; 99202; J1745 ==

== ENCOUNTER 2021-11-05 16:49 | Outpatient (REF) | payer OTHER, SELFPAY ==
[2021-11-05 17:35] LABS: Blood Urea Nitrogen 13 mg/dL (9-16); Estimated Glomerular Filt Rate > 60
== END 2021-11-05 16:50 | disposition home or self-care (01) ==
LOC: HO.LAB 16:49
PROVIDERS: PCP Internal Medicine; Visit Provider Urology
DX: N13.30 Unspecified hydronephrosis (principal); R39.15 Urgency of urination
CPT/HCPCS: 36415; 82565; 84520

== ENCOUNTER 2021-11-06 08:03 | Outpatient (REF) | payer OTHER, SELFPAY ==
--- NOTE | ~2021-11-06 | CT_ITS ---
EXAMINATION: CT ABDOMEN AND PELVIS WITHOUT AND WITH CONTRAST CLINICAL INFORMATION: Gross hematuria COMPARISON: Previous CT scans most recent August 2021 and MR January 2021 TECHNIQUE: Noncontrast CT of the abdomen and pelvis is performed followed by split bolus contrast-enhanced images using 85 mL Omnipaque 350 contrast.? Postcontrast imaging is performed during the combined nephrogram and excretion phase. Sagittal and coronal reformatted images were obtained on the technologist's workstation for both the precontrast and postcontrast phases. This CT examination was performed using dose optimization techniques as appropriate, variously including the following: *Automated exposure control *Adjustment of mA and/or kV according to patient size (this includes techniques or standardized protocols for targeted exams where dose is matched to indication/reason for exam; i.e. extremities or head) *Use of iterative reconstruction technique DLP: 622 mGy-cm FINDINGS: LUNG BASES: The visualized lung bases are unremarkable. LIVER, GALLBLADDER, AND BILIARY TREE: The liver is normal in size, shape, and attenuation. No focal hepatic lesion or biliary ductal dilatation is present. The gallbladder is unremarkable with no evidence of radiopaque gallstones, gallbladder wall thickening, or obvious pericholecystic inflammatory changes. PANCREAS: Unremarkable. SPLEEN: Unremarkable. ADRENAL GLANDS: Unremarkable. KIDNEYS AND URETERS: The kidneys are normal in size, shape, and attenuation. There is question of a tiny 1 mm stone in the lower pole of the right kidney coronal reconstructed image 49 series 6. No renal mass is seen. There is mild bilateral hydronephrosis. There is bilateral ureteral dilatation down to the bladder, left greater than right. There is some irregularity of the renal calyces, right greater than left questionable for papillary necrosis. BLADDER: Unremarkable. GASTROINTESTINAL TRACT: There is question of mild wall thickening of the terminal ileum. This is similar to previous enterography exam. There is stool throughout the colon questionable for constipation. Small and large bowel are otherwise unremarkable. The small and large bowel are unremarkable. The appendix is unremarkable. ABDOMINAL WALL: There is a small umbilical hernia containing fat. LYMPH NODES: Normal. VASCULAR: Unremarkable. PELVIC VISCERA: Unremarkable. OSSEUS STRUCTURES: Unremarkable. CT/CT urogram IMPRESSION: Question tiny 1 mm right lower pole nonobstructing stone. Mild bilateral hydronephrosis. Calyceal irregularity questionable for papillary necrosis, particularly on the right. Bilateral ureteral dilatation down to the bladder, left greater than right. No ureteral stone or mass. Normal bladder. Question mild wall thickening of the terminal ileum similar to previous enterography exam.
[2021-11-06] MEDS: iohexoL 350 MG/ML 100 ML INFUS..BTL 85 ML IV (08:56)
== END 2021-11-06 08:04 | disposition home or self-care (01) ==
LOC: HO.CT 08:03
PROVIDERS: PCP Internal Medicine; Visit Provider Urology
DX: R31.0 Gross hematuria (principal); N13.30 Unspecified hydronephrosis
CPT/HCPCS: 74178; Q9967

== ENCOUNTER → 2021-11-09 10:29 | Outpatient (BNVA) | payer OTHER, SELFPAY | PROVIDERS: PCP Internal Medicine; Visit Provider Urology | DX: N13.30 Unspecified hydronephrosis (principal); R10.31 Right lower quadrant pain | CPT/HCPCS: 99212 ==

== ENCOUNTER 2021-12-10 12:54 | Outpatient (REF) | payer OTHER, SELFPAY | END 2021-12-10 12:55 | disposition home or self-care (01) | LOC: HO.MDS 12:54 | PROVIDERS: PCP Internal Medicine; Visit Provider Internal Medicine Gastroenterology | DX: K50.00 Crohn's disease of small intestine without complications (principal) | CPT/HCPCS: 96413; 96415 ==

== ENCOUNTER 2022-01-09 17:00 | Outpatient (RCR) | payer OTHER, SELFPAY ==
--- NOTE | 2021-12-05 18:12 | MHC.PT.EP ---
[facility] [place] Office [place] Office [place] Office [address] Prashant Pearce [address] [phone] F: [phone] F: [phone] F: [phone] F: [phone] Physical Therapy Plan of Care Date of Evaluation: Date of Surgery: n/a Diagnosis: Right lower quadrant pain Assessment: Pt is a 36yo M who presents to PT with R groin pain for ~1 year. He presents today with current impairments in pain, decreased R hip ROM, decreased R hip strength, decreased hip flexor length, and soft tissue restrictions. He had reproduction of symptoms with hip flexor and adductor MMT. He is limited functionally by walking, stair navigation, and squatting/lifting. He is a good candidate for skilled PT in order to address current impairments to facilitate return to PLOF. He will be seen 2x/week for 4 weeks and will be reassessed at that time. Frequency and Duration: The patient will be seen 2x/week for 4 weeks Short Term Goals: Pt will be I with HEP to promote self management of symptoms Pt will improve R hip flexion by at least 5 degrees Senior Care Goals: Pt will navigate 1 flight of stairs with reciprocal pattern with minimal to no pain Pt will demonstrate improvements in functional mobility as evidenced by statistically significant improvement in LEFI outcome measure Treatment Plan: Modalities to reduce pain, spasms and effusion. Manual therapy to restore motion and function. Therapeutic exercise to improve strength and flexibility. Neuromuscular re-education for posture and balance. Therapeutic activities to return to functional activities of daily living. Electronically signed by: Emelia Calvo, PT, DPT Please sign and return to therapist. Thank you for your referral.
--- NOTE | 2022-01-17 13:38 | MHC.PT.DC ---
[facility] [place] Office [place] Office [place] Office [address] Prashant Pearce 140 [facility] [phone] F: [phone] F: [phone] F: [phone] F: [phone] Physical Therapy Discharge Report Diagnosis: Right lower quadrant pain Date of Surgery: n/a Date of Evaluation: 12/05/21 Date of Discharge: 01/17/22 Treatments to Date: 8 Cancellations to Date: No Shows to Date: Discharge Status: Achieved Goals Improved Function Independent with HEP Discharge Summary: Pt was seen for PT from 12/05/21-01/09/22. Pt made excellent progress since SOC. He had a decrease in pain and improved LE strength. He met his STGs and LTGs. He improved his score on LEFI outcome measure from 35/80 on initial PT evaluation to 75/80 on D/C. Pt is I with HEP. Pt is being D/C from skilled PT at this time. Electronically signed by: Emelia Calvo, PT, DPT Please sign and return to therapist. Thank you for your referral.
--- NOTE | 2022-01-17 13:44 | MHC.PT.DC ---
[facility] [place] Office [place] Office [place] Office [address] Prashant Pearce 140 [facility] [phone] F: [phone] F: [phone] F: [phone] F: [phone] Physical Therapy Discharge Report Diagnosis: Right lower quadrant pain Date of Surgery: n/a Date of Evaluation: 12/05/21 Date of Discharge: 01/17/22 Treatments to Date: 8 Cancellations to Date: No Shows to Date: Discharge Status: Achieved Goals Improved Function Independent with HEP Discharge Summary: Pt was seen for PT from 12/05/21-01/09/22. Pt made excellent progress since SOC. He had a decrease in pain and improved LE strength. He met his STGs and LTGs. He improved his score on LEFI outcome measure from 35/80 on initial PT evaluation to 75/80 on D/C. Pt is I with HEP. Pt is being D/C from skilled PT at this time. Electronically signed by: Emelia Calvo, PT, DPT Please sign and return to therapist. Thank you for your referral.
== END 2022-01-17 13:38 | disposition home or self-care (01) ==
LOC: HO.PT 17:00
PROVIDERS: Visit Provider Urology
DX: R10.31 Right lower quadrant pain (principal)
CPT/HCPCS: 97110; 97161; 97530

== ENCOUNTER 2022-02-04 12:47 | Outpatient (REF) | payer OTHER, SELFPAY | END 2022-02-04 12:48 | disposition home or self-care (01) | LOC: HO.MDS 12:47 | PROVIDERS: Visit Provider Internal Medicine Gastroenterology | DX: K50.00 Crohn's disease of small intestine without complications (principal) | CPT/HCPCS: 96413; 96415; J1745 ==

== ENCOUNTER → 2022-03-07 12:55 | Outpatient (REF) | payer OTHER, SELFPAY ==
--- NOTE | ~2022-03-07 | NM_ITS ---
EXAMINATION: RENAL DYNAMIC IMAGING STUDY WITH LASIX CLINICAL INFORMATION: Hydronephrosis. Hydronephrosis. COMPARISON: No previous radionuclide renal scan is available for comparison. CT urogram dated 11/06/2021 is available for comparison. TECHNIQUE: Serial gamma scintillation camera images were obtained over the posterior trunk during the initial transit and subsequent distribution of a bolus intravenous injection of 10 mCi of Tc-99m DTPA. At 30 minutes later, 40 mg of Lasix was administered intravenously and an additional 30 minutes of images obtained. FINDINGS: Initial rapid sequence images show prompt and bilaterally symmetrical flow to the kidneys. Subsequent sequential static images obtained up to 30 minutes show good concentration bilaterally. There is evidence of excretory function by 3 minutes post injection bilaterally. At 30 minutes postinjection is good visualization of activity in the urinary bladder and mild dilatation and retention in both renal pelves. There is faint visualization of the left ureter with some minimal retention in the distal left ureter, but the right ureter is only barely visualized. Following Lasix administration, there is prompt washout of the retained activity in the left renal pelvis but slightly slower washout on the right, although the retention in the right renal pelvis at the time of Lasix administration with significantly greater than on the left. At the end of the study there is almost no retained activity in either renal pelvis and a full urinary bladder is well-visualized. The T-1/2 washout times measured from the time of peak activity are: Left 24 minutes and right 2 minutes. The relative function of the two kidneys based on the 2-3 minute images are: Left 58% and right 42%. NM/NM renal flow w pharm int IMPRESSION: LEFT KIDNEY: Normal perfusion and function. Mild hydronephrosis is present but there is no outflow obstruction. RIGHT KIDNEY: Normal perfusion and mildly diminished function compared to the left kidney, as quantitated above. Moderate hydronephrosis is present but significant outflow obstruction is not present.
== END ==
LOC: HO.NUCMED 12:55
PROVIDERS: Visit Provider Urology
DX: N13.30 Unspecified hydronephrosis (principal)
CPT/HCPCS: 78708; A9539; J1940

== ENCOUNTER 2022-04-01 13:16 | Outpatient (REF) | payer OTHER, SELFPAY | END 2022-04-01 13:17 | disposition home or self-care (01) | LOC: HO.MDS 13:16 | PROVIDERS: Visit Provider Internal Medicine Gastroenterology | DX: K50.00 Crohn's disease of small intestine without complications (principal) | CPT/HCPCS: 96413; 96415; J1745 ==

== ENCOUNTER 2022-05-02 17:08 | Outpatient (REF) | payer OTHER, SELFPAY ==
[2022-05-02 17:29] LABS: MANUAL DIFF FLAG NO
[2022-05-02 18:02] LABS: Basophils Percent Auto 0.6 % (0-2); Eosinophils Absolute Auto 0.3 X10*3/uL (0.0-0.4); Eosinophils Percent Auto 4.5 % (0-4); Hematocrit 38.7 % (42.0-52.0); Imm Gran Abs Auto 0.01 X10*3/uL (0.00-0.03); Imm Gran Pct Auto 0.2 % (0.0-0.4); Lymphocytes Absolute Auto 1.2 X10*3/uL (1.2-4.9); Lymphocytes Percent Auto 18.2 % (20-40); Mean Corpuscular HGB Conc 33.6 g/dl (31.0-36.0); Mean Corpuscular Volume 89.2 fL (80.0-98.0); Monocytes Absolute Auto 0.6 X10*3/uL (0.1-1.2); Monocytes Percent Auto 9.9 % (2-11); Neutrophils Absolute Auto 4.3 x10*3/uL (2.0-8.3); Neutrophils Percent Auto 66.6 % (45-73); Platelet Count 223 X10*3/uL (160-400); Red Blood Count 4.34 X10*6/uL (4.60-5.80); Red Cell Distribution Width 14.5 % (11.0-16.0); White Blood Count 6.5 X10*3/uL (4.8-10.8)
[2022-05-02 18:23] LABS: Alanine Aminotransferase 21 U/L (0-40); Albumin Level 4.2 g/dL (3.5-5.0); Alkaline Phosphatase 71 U/L (39-117); Anion Gap 14 (12-20); Aspartate Amino Transferase 28 U/L (5-37); Bilirubin Total 0.2 mg/dL (0.0-1.0); Blood Urea Nitrogen 22 mg/dL (9-16); C Reactive Protein 0.04 mg/dL (< or = 0.50); Calcium 8.9 mg/dL (8.4-10.2); Carbon Dioxide 26 mmol/L (22-29); Chloride 104 mmol/L (96-108); Estimated Glomerular Filt Rate > 60; Glucose Random 87 mg/dL (60-115); Potassium 4.1 mmol/L (3.3-5.1); Sodium 140 mmol/L (135-145); Total Protein 6.6 g/dL (6.5-8.0)
[2022-05-02 18:45] LABS: Ferritin 29 ng/mL (20-250)
[2022-05-03 07:29] LABS: Folate 16.7 ng/mL (> or = 4.0); Vitamin B12 625 pg/mL (200-900)
[2022-05-08 05:51] LABS: Zinc 85 mcg/dL (60-130)
== END 2022-05-02 17:09 | disposition home or self-care (01) ==
LOC: HO.LAB 17:08
PROVIDERS: Visit Provider Internal Medicine Gastroenterology
DX: K50.00 Crohn's disease of small intestine without complications (principal); K75.81 Nonalcoholic steatohepatitis (NASH)
CPT/HCPCS: 36415; 80053; 82607; 82728; 82746; 84630; 85025; 86140

== ENCOUNTER 2022-05-03 07:14 | Outpatient (REF) | payer OTHER, SELFPAY ==
[2022-05-03 09:19] LABS: CDiff Gene PCR POSITIVE (Negative)
[2022-05-03 10:07] LABS: Adenovirus F 40/41 Not Detected (Not Detect.); Astrovirus Not Detected (Not Detect.); Campylobacter Not Detected (Not Detect.); Cryptosporidium Not Detected (Not Detect.); Cyclospora cayetanensis Not Detected (Not Detect.); E. coli EAEC Not Detected (Not Detect.); E. coli EPEC Not Detected (Not Detect.); E. coli ETEC Not Detected (Not Detect.); E. coli STEC Not Detected (Not Detect.); Entamoeba histolytica Not Detected (Not Detect.); Giardia lamblia Not Detected (Not Detect.); Norovirus GI/GII Not Detected (Not Detect.); Plesiomonas shigelloides Not Detected (Not Detect.); Rotavirus A Not Detected (Not Detect.); Salmonella Not Detected (Not Detect.); Sapovirus Not Detected (Not Detect.); Shigella sp./EIEC Not Detected (Not Detect.); Vibrio Not Detected (Not Detect.); Vibrio Cholerae Not Detected (Not Detect.); Yersinia enterocolitica Not Detected (Not Detect.)
[2022-05-03 11:07] LABS: CDIFF Internal ctrl Dots and bkg OK (V); CDiff Toxin Negative (Negative)
[2022-05-08 13:17] LABS: Lactoferrin, Fecal, Quant. <30.0 mcg/mL
== END 2022-05-03 07:15 | disposition home or self-care (01) ==
LOC: HO.LNP 07:14
PROVIDERS: Visit Provider Internal Medicine Gastroenterology
DX: K50.00 Crohn's disease of small intestine without complications (principal); R19.7 Diarrhea, unspecified
CPT/HCPCS: 83631; 87324; 87493; 87507

== ENCOUNTER → 2022-05-15 08:43 | Outpatient (BNVA) | payer OTHER, SELFPAY | PROVIDERS: PCP Internal Medicine; Visit Provider Urology | DX: N13.5 Crossing vessel and stricture of ureter without hydronephrosis (principal); K50.90 Crohn's disease, unspecified, without complications; N13.30 Unspecified hydronephrosis | CPT/HCPCS: 99212 ==

== ENCOUNTER 2022-05-21 06:11 | Inpatient (IN) | payer OTHER, SELFPAY ==
--- NOTE | ~2022-05-21 | CT_ITS ---
EXAMINATION: CT ABDOMEN AND PELVIS WITH CONTRAST CLINICAL INFORMATION: Abdominal pain, post C. difficile infection COMPARISON: 11/06/2021 TECHNIQUE: Multidetector volumetric images were obtained from the superior aspect of the liver through the pubic symphysis following administration 85 mL of Omnipaque 350 intravenous contrast. Sagittal and coronal reformatted images were obtained on the technologist's workstation. Oral contrast: No This CT examination was performed using dose optimization techniques as appropriate, variously including the following: *Automated exposure control *Adjustment of mA and/or kV according to patient size (this includes techniques or standardized protocols for targeted exams where dose is matched to indication/reason for exam; i.e. extremities or head) *Use of iterative reconstruction technique DLP: 617 mGy-cm FINDINGS: LUNG BASES: The visualized lung bases are unremarkable. LIVER, GALLBLADDER, AND BILIARY TREE: The liver is normal in size, shape, and attenuation. No focal hepatic lesion or biliary ductal dilatation is present. The gallbladder is unremarkable with no evidence of radiopaque gallstones, gallbladder wall thickening, or obvious pericholecystic inflammatory changes. PANCREAS: Unremarkable. SPLEEN: Unremarkable. ADRENAL GLANDS: Unremarkable. KIDNEYS AND URETERS: Bilateral nephrograms are symmetric. No hydronephrosis or obstructing calculus identified. BLADDER: Unremarkable. GASTROINTESTINAL TRACT: There are several mildly prominent fluid-filled loops of small bowel in the central abdomen leading to a fecalized segment in the lower abdomen. There is decrease in small bowel caliber beyond this segment, and the distalmost small bowel is nondilated. Overall pattern is suspicious for a small bowel obstruction which may be developing or partial in nature, as some gas is present beyond the presumed transition site at the fecalized segment. There is mild mural prominence of the distal small bowel, and associated enteritis cannot be excluded. There is associated mesenteric stranding and a small amount of free fluid throughout the abdomen. Large bowel is grossly unremarkable, with some portions not well assessed for wall thickening due to luminal collapse. Appendix is mildly prominent in caliber distally though does contain foci of gas. No free air is seen. ABDOMINAL WALL: No significant hernia is appreciated. LYMPH NODES: Normal. VASCULAR: Unremarkable. PELVIC VISCERA: Unremarkable. OSSEOUS STRUCTURES: Unremarkable. CT/CT abdomen pelvis w IV con IMPRESSION: Abnormal configuration of small bowel as described above, suspicious for obstruction which may be partial or developing in nature, as some gas and fluid is seen within distal to the prominent fecalized segment in the lower abdomen which presumably represents the transition site. Associated enteritis of the distal small bowel difficult to exclude given the mural prominence. Accompanying mesenteric stranding and small amount of fluid throughout the abdomen.
[2022-05-21 06:36] VITALS: BP 147/85; PULSE 76; RESP 16; TEMP 37.2; O2SAT 96; BMI 31.0
--- NOTE | 2022-05-21 08:04 | ED_ITS ---
HPI - General Adult General Chief complaint: Nausea/Vomiting/Diarrhea Stated complaint: abd pain Time Seen by Provider: 05/21/22 08:04 Source: patient Mode of arrival: ambulatory Limitations: no limitations History of Present Illness HPI narrative: Patient is a 36 year old male presenting to the emergency department today with abdominal pain. Patient states that he has a history of crohn's disease that he follows here for. Patient states that he just had a positive C.diff test earlier this month and just finished his vancomycin a few days ago. Patient states that starting yesterday, he had abdominal pain and nausea that is different than he has had before. Patient states that he feels as though he is constipated and he had a bowel movement yesterday but it was very small for him. Patient denies any dizziness, lightheadedness, fever, chills, blurry vision, double vision, loss of vision, chest pain, difficulty breathing, shortness of breath, back pain, night sweats, pain with urination, increased urinary frequency, increased urinary urgency, blood in his urine or stool, syncope or a near syncopal episode, recent trauma or falls, bowel incontinence, bladder incontinence, bowel retention, bladder retention, or any other complaints at this time. MD complaint: Abdominal pain, nausea/vomiting Onset (ago): day(s) (1) Location: abdomen Radiation: abdomen Severity: moderate Severity scale (1-10): 5 Quality: other (Cramping) Relieving factors: none Exacerbating factors: eating and movement Associated symptoms: nausea/vomiting Treatments prior to arrival: other (Omeprazole) Related Data Previous Rx's Medication Instructions Recorded infliximab 100 mg intravenous 500 mg IV Q8W 56 days #5 ea 09/06/20 solution (Remicade) azathioprine 50 mg tablet 100 mg PO BID 90 days #360 tabs 09/04/21 omeprazole 20 mg capsule,delayed 20 mg PO DAILY #90 caps 04/30/22 release zinc acetate 50 mg (zinc) capsule 50 mg PO DAILY 90 days #90 caps 04/30/22 (Galzin) Allergies Allergy/AdvReac Type Severity Reaction Status Date / Time Penicillins [PENICILLINS] Allergy Severe HIVES Verified 05/15/22 08:46 Review of Systems Constitutional: Constitutional: Reports no additional constitutional complaints, Denies chills, Denies fever(s) and Denies night sweats Eyes: Eyes: Reports no additional eye complaints, Denies blurry vision, Denies change in vision, Denies diplopia, Denies eye discharge, Denies loss of vision and Denies eye pain ENT: Denies dizziness Cardiovascular: Cardiovascular: Reports no additional cardiovascular complaints, Denies chest pain, Denies lightheadedness, Denies Loss of Consciousness and Denies dyspnea Respiratory: Respiratory: Reports no additional respiratory complaints and Denies dyspnea Gastrointestinal: Gastrointestinal: Reports no additional gastrointestinal complaints, Reports abdominal pain, Denies melena, Denies hematochezia, Denies change in bowel habits, Denies change in stool character, Reports GI cramping, Reports nausea and Reports vomiting Genitourinary: Genitourinary: Reports no additional male genitourinary complaints, Denies hematuria, Denies oliguria, Denies difficulty urinating, Denies dysuria, Denies urinary frequency, Denies urinary hesitancy, Denies uri nary incontinence and Denies urinary urgency Musculoskeletal: Musculoskeletal: Reports no additional musculoskeletal complaints, Denies numbness and Denies tingling Neurologic: Denies dizziness, Denies loss of vision, Denies numbness and Denies tingling Psychiatric: Psychiatric: Reports no additional psychiatric complaints Endocrine: Endocrine: Reports no additional endocrine complaints Hematologic/Lymphatic: Hematologic/Lymphatic: Reports no additional hematologic/lymphatic complaints Allergic/Immunologic: Allergic/Immunologic: Reports no additional allergic/immunologic complaints [facility] Past Medical History Attestation statement: The following information was validated with the patient. Source: old records reviewed Medical History Crohn's disease involving terminal ileum Social History Social History Patient Tobacco Use Status: Current someday Tobacco user Use of substances other than those prescribed or required for medical reasons: No Advance Directives: No Advance Directives Information Provided: No Physical Exam ED Vital Signs: Vital Signs - 24 hr 05/21/22 06:36 05/21/22 08:13 05/21/22 10:57 Temperature 98.9 F Pulse Rate 76 70 80 Respiratory Rate 16 18 18 Blood Pressure 147/85 H 140/100 H 137/87 Pulse Oximetry 96 97 98 Oxygen Delivery Method Room Air Room Air Room Air BMI result Body Mass Index 31.0 Const General: cooperative, no acute distress, alert and awake Nutritional Appearance: well nourished Orientation/consciousness: patient oriented x3 Limitations: no limitations HENMT Head: Yes normal to inspection and Yes atraumatic Ears: hearing grossly normal bilaterally and external ears normal General nose exam: Normal external nose present, no nasal discharge noted and no epistaxis Face and sinus: Yes normal facial exam, No abrasion and No laceration Mouth: Normal oral and palatal mucosa present, no drooling and no muffled voice Eyes General: appearance normal, both eyes and all related structures Periorbital: periorbital findings normal Eyelids: Yes eyelids normal Conjunctivae: conjunctivae normal Pupils: Equal, round and reactive pupils present EOM: EOMs intact bilaterally Neck Neck: Yes normal visual inspection, Yes full ROM and Yes no lymphadenopathy Chest Chest palpation & inspection: normal inspection of the chest Resp Effort & Inspection: normal respiratory effort and able to speak in complete sentences Auscultation: clear to auscultation bilaterally Cardio Rate: regular rate Rhythm: regular rhythm GI Inspection: Yes normal to inspection Palpation (GI): Soft to palpation, not firm, Tenderness to palpation present (GI) (Diffusely) and not rigid Auscultation: abnormal bowel sounds Neuro General: patient oriented x3 and moves all extremities Cranial nerves: Yes Equal, round and reactive pupils present Cognition (Neuro): normal cognition Motor exam (neuro): 5/5 motor strength present throughout Sensory Exam: Normal double simultaneous stimulation for sensation Coordination: [id number] test normal Extrem General: Yes normal to inspection, Yes full ROM and Yes capillary refill normal Psych Appearance: grossly normal Mental Status: mental status grossly normal Affect: normal affect Attitude: cooperative Thought process: Normal thought process present Thought content: Normal thought content present Insight: Good insight present (Psych) Medical Decision Making [facility] Narrative Medical decision making narrative: Patient is a 36 year old male presenting to the emergency department today with abdominal pain and vomiting. Patient's physical exam showed diffuse abdominal pain. Patient's blood work was unremarkable. Patient's urine showed no acute process. Patient's abdominal CT showed a possible / evolving SBO. I explained my physical exam findings as well as all test results to the patient. I answered all questions asked by the patient. I spoke to Dr. Landry who stated that this is unlikely a SBO and more likely a colitis but he recommends admission for observation. I spoke to Dr. Ryder from GI, who agreed with Dr. Landry and recommended admission. Patient verbalized agreement and understanding with this treatment plan and admission. Patient's clinical picture is not consistent with sepsis. Differential Diagnosis Differential Diagnosis: SBO vs. Colitis Medical Records Medical records reviewed: Yes I reviewed the patient's medical records. Lab Data Lab results reviewed: Yes I reviewed the patient's lab results. Result diagrams: 05/21/22 08:23 05/21/22 08:23 Labs: Lab Results 05/21/22 05/21/22 05/21/22 Range/Units 08:23 08:23 10:59 WBC 9.0 (4.8-10.8) X10*3/uL RBC 5.05 (4.60-5.80) X10*6/uL Hgb 14.8 (14.0-18.0) g/dl Hct 45.6 (42.0-52.0) % MCV 90.3 (80.0-98.0) fL MCH 29.3 (27.0-33.0) pg MCHC 32.5 (31.0-36.0) g/dl RDW 14.4 (11.0-16.0) % Plt Count 257 (160-400) X10*3/uL MPV 11.7 (9.4-12.4) fL Immature Gran % (Auto) 0.3 (0.0-0.4) % Neut % (Auto) 87.9 H (45-73) % Lymph % (Auto) 6.1 L (20-40) % [place] % (Auto) 5.0 (2-11) % Eos % (Auto) 0.4 (0-4) % Baso % (Auto) 0.3 (0-2) % Lymph # (Auto) 0.6 L (1.2-4.9) X10*3/uL [place] # (Auto) 0.5 (0.1-1.2) X10*3/uL Eos # (Auto) 0.0 (0.0-0.4) X10*3/uL Baso # (Auto) 0.0 (0.0-0.2) X10*3/uL Abs Immat Gran (auto) 0.03 (0.00-0.03) X10*3/uL Absolute Neuts (auto) 7.9 (2.0-8.3) x10*3/uL Absolute Nucleated RBC 0.000 (0.0-0.012) X10*3/uL Nucleated RBC % (auto) 0.0 (0.0-0.2) /100WBC Sodium 137 (135-145) mmol/L Potassium 4.5 (3.3-5.1) mmol/L Chloride 98 (96-108) mmol/L Carbon Dioxide 27 (22-29) mmol/L Anion Gap 17 (12-20) BUN 14 (9-16) mg/dL Creatinine 0.92 (0.5-1.4) mg/dL Estim Creat Clear Calc 117.5 Estimated GFR > 60 Random Glucose 124 H D (60-115) mg/dL Calcium 9.5 D (8.4-10.2) mg/dL Total Bilirubin 0.9 (0.0-1.0) mg/dL AST 26 (5-37) U/L ALT 28 (0-40) U/L Alkaline Phosphatase 71 (39-117) U/L Total Protein 7.3 (6.5-8.0) g/dL Albumin 4.7 (3.5-5.0) g/dL Lipase 25 (8-78) U/L Urine Color Yellow Urine Appearance Clear Urine pH 8.5 (5.0-9.0) Ur Specific [place] >= 1.030 H (1.005-1.025) Urine Protein Negative (Neg-Trace) mg/dL Urine Glucose (UA) Negative (Negative) mg/dL Urine Ketones Negative (Negative) mg/dL Urine Blood Negative (Negative) Urine Nitrite Negative (Negative) Ur Leukocyte Esterase Negative (Negative) Imaging Data CT scan - abdomen: Attestation: I personally reviewed and interpreted this imaging study as follows: My impression: Colitis vs. SBO Radiologist's impression: EXAMINATION: CT ABDOMEN AND PELVIS WITH CONTRAST? CLINICAL INFORMATION: Abdominal pain, post C. difficile infection? COMPARISON: 11/06/2021? TECHNIQUE: Multidetector volumetric images were obtained from the superior aspect of the liver through the pubic symphysis following administration 85 mL of Omnipaque 350 intravenous contrast. Sagittal and coronal reformatted images were obtained on the technologist's workstation.? Oral contrast: No This CT examination was performed using dose optimization techniques as appropriate, variously including the following: *Automated exposure control *Adjustment of mA and/or kV according to patient size (this includes techniques or standardized protocols for targeted exams where dose is matched to indication/reason for exam; i.e. extremities or head) *Use of iterative reconstruction technique DLP: 617 mGy-cm FINDINGS: LUNG BASES: The visualized lung bases are unremarkable.? LIVER, GALLBLADDER, AND BILIARY TREE: The liver is normal in size, shape, and attenuation. No focal hepatic lesion or biliary ductal dilatation is present. The gallbladder is unremarkable with no evidence of radiopaque gallstones, gallbladder wall thickening, or obvious pericholecystic inflammatory changes.? PANCREAS: Unremarkable.? SPLEEN: Unremarkable.? ADRENAL GLANDS: Unremarkable.? KIDNEYS AND URETERS: Bilateral nephrograms are symmetric. No hydronephrosis or obstructing calculus identified.? BLADDER: Unremarkable.? GASTROINTESTINAL TRACT: There are several mildly prominent fluid-filled loops of small bowel in the central abdomen leading to a fecalized segment in the lower abdomen. There is decrease in small bowel caliber beyond this segment, and the distalmost small bowel is nondilated. Overall pattern is suspicious for a small bowel obstruction which may be developing or partial in nature, as some gas is present beyond the presumed transition site at the fecalized segment. There is mild mural prominence of the distal small bowel, and associated enteritis cannot be excluded. There is associated mesenteric stranding and a small amount of free fluid throughout the abdomen. Large bowel is grossly unremarkable, with some portions not well assessed for wall thickening due to luminal collapse. Appendix is mildly prominent in caliber distally though does contain foci of gas. No free air is seen. ABDOMINAL WALL: No significant hernia is appreciated.? LYMPH NODES: Normal. VASCULAR: Unremarkable. PELVIC VISCERA: Unremarkable.? OSSEOUS STRUCTURES: Unremarkable.? CT/CT abdomen pelvis w IV con IMPRESSION: Abnormal configuration of small bowel as described above, suspicious for obstruction which may be partial or developing in nature, as some gas and fluid is seen within distal to the prominent fecalized segment in the lower abdomen which presumably represents the transition site. Associated enteritis of the distal small bowel difficult to exclude given the mural prominence. Accompanying mesenteric stranding and small amount of fluid throughout the abdomen. Dictated By: Armando Mae MD Signed By: Electronically signed by Armando Mae MD 05/21/22 4017 Critical Care Time Critical Care Time Critical Care Time: Yes Total Critical Care Time: 30 Attestation: I spent 30 minutes of Critical Care Time with this patient. This does not incl ude time spent on separately reported billable procedures. Discharge Plan Discharge Clinical Impression: Abdominal pain Patient Disposition: Admitted As Inpatient
[2022-05-21 08:13] VITALS: BP 140/100; PULSE 70; RESP 18; O2SAT 97
[2022-05-21 08:28] LABS: MANUAL DIFF FLAG NO
[2022-05-21 08:30] LABS: Basophils Percent Auto 0.3 % (0-2); Eosinophils Percent Auto 0.4 % (0-4); Hematocrit 45.6 % (42.0-52.0); Hemoglobin 14.8 g/dl (14.0-18.0); Imm Gran Abs Auto 0.03 X10*3/uL (0.00-0.03); Imm Gran Pct Auto 0.3 % (0.0-0.4); Lymphocytes Absolute Auto 0.6 X10*3/uL (1.2-4.9); Lymphocytes Percent Auto 6.1 % (20-40); Mean Corpuscular HGB Conc 32.5 g/dl (31.0-36.0); Mean Corpuscular Hemoglobin 29.3 pg (27.0-33.0); Mean Corpuscular Volume 90.3 fL (80.0-98.0); Mean Platelet Volume 11.7 fL (9.4-12.4); Monocytes Absolute Auto 0.5 X10*3/uL (0.1-1.2); Neutrophils Absolute Auto 7.9 x10*3/uL (2.0-8.3); Neutrophils Percent Auto 87.9 % (45-73); Platelet Count 257 X10*3/uL (160-400); Red Blood Count 5.05 X10*6/uL (4.60-5.80); Red Cell Distribution Width 14.4 % (11.0-16.0)
--- NOTE | 2022-05-21 08:57 | PC.NURSE ---
Pt is alert/oriented. States epigastric pain 10/10 since yesterday, cramping in nature. Pt with nausea/vomiting, vomiting x 4 today. H/O [place], recently on abx by GI for ?infection. IV established and labs sent
[2022-05-21 09:01] LABS: Alanine Aminotransferase 28 U/L (0-40); Albumin Level 4.7 g/dL (3.5-5.0); Alkaline Phosphatase 71 U/L (39-117); Anion Gap 17 (12-20); Aspartate Amino Transferase 26 U/L (5-37); Bilirubin Total 0.9 mg/dL (0.0-1.0); Blood Urea Nitrogen 14 mg/dL (9-16); Calcium 9.5 mg/dL (8.4-10.2); Carbon Dioxide 27 mmol/L (22-29); Chloride 98 mmol/L (96-108); Creatinine Clr Calc Pharmacy 117.5; Estimated Glomerular Filt Rate > 60; Glucose Random 124 mg/dL (60-115); Lipase 25 U/L (8-78); Potassium 4.5 mmol/L (3.3-5.1); Sodium 137 mmol/L (135-145); Total Protein 7.3 g/dL (6.5-8.0)
[2022-05-21] MEDS: iohexoL 350 MG/ML 100 ML INFUS..BTL IV (09:47)
[2022-05-21 10:57] VITALS: BP 137/87; PULSE 80; RESP 18; O2SAT 98
[2022-05-21 11:10] LABS: Appearance Urine Clear; Color Urine Yellow; Glucose Urine UA Negative (Negative); Leukocyte Esterase Urine Negative (Negative); Nitrite Urine Negative (Negative); PH 8.5 (5.0-9.0); Specific Gravity - Urine >= 1.030 (1.005-1.025); Urine Blood Negative (Negative); Urine Ketones Negative (Negative); Urine Protein Negative (Neg-Trace)
--- NOTE | 2022-05-21 12:02 | PM.CNGS ---
History of Present Illness Consult details Consult date: 05/21/22 Reason for consult: abdominal pain Requesting physician: Rhiannon Cyr Narrative: The patient is a 36-year-old gentleman with a history of inflammatory bowel disease who is seen at the request of Laury Cyr due to relatively abrupt onset of abdominal pain that started yesterday. Patient notes that gradually throughout the day he was not feeling well and then started to experience lower abdominal pain. His last bowel movement was yesterday. His pain is similar yet more severe to prior Crohn's flare and he denies any nausea or vomiting. He denies any rectal bleeding. He has a recent bout of C diff that was treated on an outpatient basis. He denies taking any antidiarrheals. No fevers or chills. No recent travel outside the country. Patient denies any recent trauma such as from a motor vehicle accident or fall or sporting activities. An audiology doctor was present at the patient's bedside, however the patient noted he was comfortable conversing in [place]i. The only issues he requested help in explaining involved shortness of breath which seems to be a minor complaint and related to his abdominal pain. He also notes halitosis. Review of Systems Review of Systems: Yes all other systems are reviewed and are negative Constitutional: Constitutional: Reports as per [facility] Past Medical History Medical History Crohn's disease involving terminal ileum Social History Social History Patient Tobacco Use Status: Current someday Tobacco user Use of substances other than those prescribed or required for medical reasons: No Advance Directives: No Advance Directives Information Provided: No Meds Allergies Allergy/AdvReac Type Severity Reaction Status Date / Time Penicillins [PENICILLINS] Allergy Severe HIVES Verified 05/15/22 08:46 Active Medications: Current Medications Pharmacy Consult (Consult Rx Perform Med Rec) 1 each MISCELLANE ONCE PRN PRN Reason: Consult order Home Medications Medication Instructions Recorded Confirmed Last Taken Type polymyxin B sulfate 10,000 ml ophthalmic (eye) 05/15/22 05/15/22 Unknown History unit-trimethoprim 1 mg/mL eye drops Physical Exam Vital Signs: Vital Signs: Last Vital Signs Temp 98.9 F 05/21/22 06:36 Pulse 80 05/21/22 10:57 Resp 18 05/21/22 10:57 BP 137/87 05/21/22 10:57 Pulse Ox 98 05/21/22 10:57 O2 Del Method 05/21/22 10:57 BMI result Body Mass Index 31.0 The patient is non-toxic & in good spirits NC/AT, PERRLA, EOMI Mood, affect & judgment all appear appropriate Sclera anicteric conjunctiva pink and moist Oropharynx is clear with no aphthous ulcers, Mallampati class 4, mucous membranes moist Neck is supple with no masses, adenopathy or bruits Thyroid is nontender and free of dominant masses Heart is regular, normal S1-S2 no rubs or murmurs Lungs are clear and equal anteriorly with no audible wheezing, rubs or dullness to percussion No CVA tenderness present Abdomen is overweight with no demonstrable hernias. Diffuse abdominal tenderness, present predominantly in the lower abdominal quadrants and suprapubic area is noted with no peritoneal irritation to percussion. No HSM, rebound, rigidity, guarding, masses or bruits are present. Rectal exam is deferred Skin has good turgor and is free of rashes Extremities free of cyanosis clubbing edema Results Labs Result diagrams: 05/21/22 08:23 05/21/22 08:23 Labs: Abnormal lab results 05/21/22 05/21/22 05/21/22 Range/Units 08:23 08:23 10:59 Neut % (Auto) 87.9 H (45-73) % Lymph % (Auto) 6.1 L (20-40) % Lymph # (Auto) 0.6 L (1.2-4.9) X10*3/uL Random Glucose 124 H D (60-115) mg/dL Ur Specific [place] >= 1.030 H (1.005-1.025) Short CBC 05/21/22 Range/Units 08:23 WBC 9.0 (4.8-10.8) X10*3/uL Hgb 14.8 (14.0-18.0) g/dl Hct 45.6 (42.0-52.0) % Plt Count 257 (160-400) X10*3/uL BMP 05/21/22 08:23 Sodium 137 Potassium 4.5 Chloride 98 Carbon Dioxide 27 BUN 14 Creatinine 0.92 Calcium 9.5 D Liver Function 05/21/22 Range/Units 08:23 Total Bilirubin 0.9 (0.0-1.0) mg/dL AST 26 (5-37) U/L ALT 28 (0-40) U/L Alkaline Phosphatase 71 (39-117) U/L Albumin 4.7 (3.5-5.0) g/dL Urine 05/21/22 Range/Units 10:59 Urine Color Yellow Urine Appearance Clear Urine pH 8.5 (5.0-9.0) Ur Specific [place] >= 1.030 H (1.005-1.025) Urine Protein Negative (Neg-Trace) mg/dL Urine Glucose (UA) Negative (Negative) mg/dL All other labs normal. Imaging Abdomen CT scan report/results: report reviewed and image reviewed CT scan - pelvis: report reviewed and image reviewed Additional studies: There is some fluid surrounding the liver with no evidence of any free air. Small bowel is slightly dilated and there is some additional free fluid but no free air. The appendix is visualized with no inflammation. See radiologist's report regarding mesenteric haziness. Assessment and Plan (1) Crohns disease of small intestine: Status: Acute (2) Retroperitoneal fibrosis: Status: Acute (3) Abdominal pain: Status: Acute (4) Abnormal CT of the abdomen: Status: Acute Plan I do not appreciate acute surgical pathology at this time. There air is no evidence of perforation as evidence by free air or evidence of a closed-loop obstruction. The ileal mesentary haziness is likely c/w Crohn's flare; I would expect colitis if the patient was experiencing a C diff recurrence. I don't appreciate appendicitis on CT. I have recommend GI evaluate the patient. I do not appreciate any history of trauma or any anomaly involving the liver parenchyma to explain the fluid around the liver and suspected is secondary to ileal inflammation/sympathetic reaction. I will continue to follow. Please call me with any questions or changes in the patient's abdominal exam. Thank you for allowing me to participate in his care. Procedures Date of Service Date of Service: 05/21/22
--- NOTE | 2022-05-21 12:31 | PHA.MEDREC ---
Pharmacy Consult ? Medication Reconciliation Pharmacy has completed the medication reconciliation.
[2022-05-21 13:46] VITALS: BP 133/77; PULSE 60; RESP 14; TEMP 36.9; O2SAT 97
[2022-05-21] MEDS: Enoxaparin Sodium 40 MG/0.4 ML SYRINGE SUBCUT (14:23)
[2022-05-21] MEDS: Mineral OiL enema 133 ML ENEMA PR (14:24)
[2022-05-21] MEDS: 0.9 % Sodium Chloride 1,000 ML 100 ML IVCONT (14:25)
--- NOTE | 2022-05-21 14:25 | PM.IMHP ---
History of Present Illness Date of Service: 05/21/22 Chief Complaint: abdominal pain 36-year-old [place]isian-speaking male presented to the ER with complaints of abdominal pain that started approximately 24 hours ago. He does have a history of Crohn's disease and was recently treated for C diff completing 10 days of vancomycin a few days ago. He reported some nausea and several episodes of vomiting and reported that he has felt constipated as he had had a small bowel movement yesterday but that was it. He denied chest pain, shortness of breath, sick contacts, improperly cooked foods. In the ER, all labs within acceptable limits, vital signs stable. No fever or leukocytosis noted. Abdominal CT showed suspicion for obstruction however he was seen by General surgery who did not appreciate any acute surgical abnormalities, no evidence of perforation, likely secondary to Crohn's flare. At this time is comfortable resting in bed. He will be admitted for further management and treatment of acute on chronic colitis. Review of Systems Review of Systems: Denies any recent fever chills or decrease in appetite respiratory denies any shortness of breath coverage production cardiovascular denies chest pain gastrointestinal see HPI genitourinary denies any dysuria frequency or hematuria musculoskeletal denies any joint pain or swelling neuropsych denies any weakness or seizures all other systems reviewed are negative [facility] Medical History Crohn's disease involving terminal ileum Pertinent family history: NO cardiac disease Social History (Updated 05/21/22 @ 21:51 by Yaritza Mendoza MD) Patient Tobacco Use Status: Never used Tobacco Use of substances other than those prescribed or required for medical reasons: No Advance Directives: No Advance Directives Information Provided: No service: No Current occupational status: employed Meds Allergies Allergy/AdvReac Type Severity Reaction Status Date / Time Penicillins [PENICILLINS] Allergy Severe HIVES Verified 05/15/22 08:46 Active Medications: Current Medications Acetaminophen (Acetaminophen 325 Mg Tablet) 650 mg PO Q6H PRN PRN Reason: Pain, Mild (Pain Scale 1-3) Enoxaparin Sodium (Enoxaparin Sodium 40 Mg/0.4 Ml Syringe) 40 mg SUBCUT Q24H O[facility] Sodium Chloride (Ns) 1,000 mls @ 100 mls/hr IVCONT .Q10H [facility] Morphine Sulfate (Morphine Sulfate 2 Mg/Ml Cartridge) 2 mg IVPUSH Q4H PRN; Protocol PRN Reason: Pain, Severe (Pain Scale 7-10) Ondansetron HCl (Ondansetron Hcl 4 Mg/2 Ml Vial) 4 mg IVPUSH Q8H PRN PRN Reason: Nausea and Vomiting Pharmacy Consult (Consult Rx Perform Med Rec) 1 each MISCELLANE ONCE PRN PRN Reason: Consult order Sodium Chloride (0.9 % Sodium Chloride Flush 3 Ml Syringe) 3 ml IVFLUSH QSHIFT [facility] Physical Exam Vital Signs and Narrative: Vital Signs: Last Vital Signs Temp 98.5 F 05/21/22 13:46 Pulse 60 05/21/22 13:46 Resp 14 05/21/22 13:46 BP 133/77 05/21/22 13:46 Pulse Ox 97 05/21/22 13:46 O2 Del Method 05/21/22 13:46 BMI result Body Mass Index 31.0 Appearing in no acute distress head is normocephalic atraumatic eyes pupils are PERRLA sclera is anicteric mouth throat mucous membranes are intact and moist neck is supple no lymphadenopathy, no JVD noted lung sounds are clear to auscultation heart regular rate rhythm, clear S1, S2 positive bowel sounds, abdomen is soft, nontender, diffuse tenderness neuro patient is alert x3, no focal deficits Results Labs CBC and Chem 7: 05/22/22 04:43 05/22/22 04:43 Labs: Laboratory Results - last 24 hr 05/21/22 05/21/22 05/21/22 08:23 08:23 10:59 MCV 90.3 MCH 29.3 MCHC 32.5 RDW 14.4 Plt Count 257 MPV 11.7 Immature Gran % (Auto) 0.3 Neut % (Auto) 87.9 H Lymph % (Auto) 6.1 L Daniels % (Auto) 5.0 Eos % (Auto) 0.4 Baso % (Auto) 0.3 Lymph # (Auto) 0.6 L Daniels # (Auto) 0.5 Eos # (Auto) 0.0 Baso # (Auto) 0.0 Abs Immat Gran (auto) 0.03 Absolute Neuts (auto) 7.9 Absolute Nucleated RBC 0.000 Nucleated RBC % (auto) 0.0 Anion Gap 17 Estim Creat Clear Calc 117.5 Estimated GFR > 60 Random Glucose 124 H D Calcium 9.5 D Total Bilirubin 0.9 AST 26 ALT 28 Alkaline Phosphatase 71 Total Protein 7.3 Albumin 4.7 Lipase 25 Urine Color Yellow Urine Appearance Clear Urine pH 8.5 Ur Specific [place] >= 1.030 H Urine Protein Negative Urine Glucose (UA) Negative Urine Ketones Negative Urine Blood Negative Urine Nitrite Negative Ur Leukocyte Esterase Negative Imaging Radiologist's Impressions: Impressions Abdomen/Pelvis CT 05/21/22 10:18 IMPRESSION: Abnormal configuration of small bowel as described above, suspicious for obstruction which may be partial or developing in nature, as some gas and fluid is seen within distal to the prominent fecalized segment in the lower abdomen which presumably represents the transition site. Associated enteritis of the distal small bowel difficult to exclude given the mural prominence. Accompanying mesenteric stranding and small amount of fluid throughout the abdomen. Assessment and Plan (1) Abnormal CT of the abdomen: Status: Acute Plan 36 year old albanian speaking man admitted with acute on chronic colitis with recent hx of cdiff s/p treatment with oral vancomycin. Colitis. Recent cdiff tx stool studies and cdiff pending Discussed with GI, will treat for presumed cdiff with po vancomycin, stop if PCR neg Clear liquid diet for now IV fluids Hx crohns. Symptoms could also be secondary to Crohn's flare on Infliximab and azathropine chronically Continue home medications Wait for stool studies GI following GERD PPI DVT prophylaxis with Lovenox attending Dr. Lopes Full code possible 2 midnight stay for acute colitis, possibly cdiff requiring antibiotic management Quality Stroke Does the patient have a stroke diagnosis?: No VTE Prior VTE?: No VTE Risk Level:: Medical - moderate - high VTE Device Contraindication: Treatment Not Indicated VTE Drug Contraindication: N/A - Med Ordered
[2022-05-21] MEDS: vancomycin HCL 125 MG CAPSULE PO ×2 (15:42→23:18)
[2022-05-21 17:13] LABS: CDiff Gene PCR POSITIVE (Negative)
[2022-05-21 18:41] LABS: CDiff Toxin Negative (Negative)
[2022-05-21 18:42] LABS: CDIFF Internal ctrl Dots and bkg OK (V)
[2022-05-21] MEDS: ondansetron HCL 4 MG/2 ML VIAL IVPUSH (18:53)
[2022-05-21] MEDS: Morphine Sulfate 2 MG/ML CARTRIDGE IVPUSH (18:53)
[2022-05-21 18:57] VITALS: BP 135/88; PULSE 63; RESP 18; O2SAT 96
[2022-05-21 19:14] LABS: COVID-19 Test Negative (Negative)
--- NOTE | 2022-05-21 21:34 | PM.GICN ---
History of Present Illness Data of Consult Service Date: 05/21/22 Requesting physician: Pia Zheng Primary Care Provider: Yaritza Mendoza MD [facility] Reason for consult: abdominal pain 36-year-old male w/ hx of ileoc colonic crohns disease on remicade and imuran. and hydronephrosis who I am seeing for assessment for abdominal pain. Patient felt well till few days ago when he developed nausea with crampy 5/10 mid abdominal pain without radiation and without any exacerbating factors or relieving factors. He attributes sx to eating a cheese hamburger from [email or web address] which he ate the morning of his sickness. He had non bloody emesis, no diarrhea or rectal bleeding. no fever, no body else sick at home. Denies using nsaids or drugs He was treated for c diff with vancomycin 05/03/22 LabS; Hgb 14, wcc;9, plts 350, cmp--nml Imaging: small bowel inflammation with stranding and free fluid Review of Systems Review of Systems: Yes all other systems are reviewed and are negative Constitutional: Constitutional: Reports as per HPI, Reports no additional constitutional complaints, Denies chills, Denies fever(s) and Denies night sweats Eyes: Eyes: Reports no additional eye complaints, Denies blurry vision, Denies change in vision, Denies diplopia, Denies eye discharge, Denies loss of vision and Denies eye pain ENT: Denies dizziness Cardiovascular: Cardiovascular: Reports no additional cardiovascular complaints, Denies chest pain, Denies lightheadedness, Denies Loss of Consciousness and Denies dyspnea Respiratory: Respiratory: Reports no additional respiratory complaints and Denies dyspnea Gastrointestinal: Gastrointestinal: Reports no additional gastrointestinal complaints, Reports abdominal pain, Denies melena, Denies hematochezia, Denies change in bowel habits, Denies change in stool character, Reports GI cramping, Reports nausea and Reports vomiting Genitourinary: Genitourinary: Reports no additional male genitourinary complaints, Denies hematuria, Denies oliguria, Denies difficulty urinating, Denies dysuria, Denies urinary frequency, Denies urinary hesitancy, Denies urinary incontinence and Denies urinary urgency Musculoskeletal: Musculoskeletal: Reports no additional musculoskeletal complaints, Denies numbness and Denies tingling Neurologic: Denies dizziness, Denies loss of vision, Denies numbness and Denies tingling Psychiatric: Psychiatric: Reports no additional psychiatric complaints Endocrine: Endocrine: Reports no additional endocrine complaints Hematologic/Lymphatic: Hematologic/Lymphatic: Reports no additional hematologic/lymphatic complaints Allergic/Immunologic: Allergic/Immunologic: Reports no additional allergic/immunologic complaints [facility] Past Medical History Medical History Crohn's disease involving terminal ileum Family History Pertinent family history: NO cardiac disease Family history: reviewed and not pertinent Social History Social History (Updated 05/21/22 @ 21:51 by Yaritza Mendoza MD) Patient Tobacco Use Status: Never used Tobacco Use of substances other than those prescribed or required for medical reasons: No Advance Directives: No Advance Directives Information Provided: No Meds Allergies Allergy/AdvReac Type Severity Reaction Status Date / Time Penicillins [PENICILLINS] Allergy Severe HIVES Verified 05/15/22 08:46 Active Medications: Current Medications Acetaminophen (Acetaminophen 325 Mg Tablet) 650 mg PO Q6H PRN PRN Reason: Pain, Mild (Pain Scale 1-3) Enoxaparin Sodium (Enoxaparin Sodium 40 Mg/0.4 Ml Syringe) 40 mg SUBCUT Q24H [facility] Last Admin: 05/21/22 14:23 Dose: 40 mg Sodium Chloride (Ns) 1,000 mls @ 100 mls/hr IVCONT .Q10H [facility] Last Admin: 05/21/22 14:25 Dose: 100 mls/hr Morphine Sulfate (Morphine Sulfate 2 Mg/Ml Cartridge) 2 mg IVPUSH Q4H PRN; Protocol PRN Reason: Pain, Severe (Pain Scale 7-10) Last Admin: 05/21/22 18:53 Dose: 2 mg Ondansetron HCl (Ondansetron Hcl 4 Mg/2 Ml Vial) 4 mg IVPUSH Q8H PRN PRN Reason: Nausea and Vomiting Last Admin: 05/21/22 18:53 Dose: 4 mg Pharmacy Consult (Consult Rx Perform Med Rec) 1 each MISCELLANE ONCE PRN PRN Reason: Consult order Sodium Chloride (0.9 % Sodium Chloride Flush 3 Ml Syringe) 3 ml IVFLUSH QSHIFT [facility] Last Admin: 05/21/22 18:46 Dose: Not Given Vancomycin HCl (Vancomycin Hcl 125 Mg Capsule) 125 mg PO Q6H [facility] Stop: 05/31/22 14:59 Last Admin: 05/21/22 15:42 Dose: 125 mg Physical Exam Vital Signs: Vital Signs: Last Vital Signs Temp 98.5 F 05/21/22 13:46 Pulse 63 05/21/22 18:57 Resp 18 05/21/22 18:57 BP 135/88 05/21/22 18:57 Pulse Ox 96 05/21/22 18:57 O2 Del Method 05/21/22 18:57 BMI result Body Mass Index 31.0 Const: General: cooperative, no acute distress, alert and awake Nutritional Appearance: well nourished Orientation/consciousness: patient oriented x3 Limitations: no limitations HEENT: Head: Yes normal to inspection and Yes atraumatic Ears: hearing grossly normal bilaterally and external ears normal General nose exam: Normal external nose present, no nasal discharge noted and no epistaxis Face and sinus: Yes normal facial exam, No abrasion and No laceration Mouth: Normal oral and palatal mucosa present, no drooling and no muffled voice Eyes: General: appearance normal, both eyes and all related structures Periorbital: periorbital findings normal Eyelids: Yes eyelids normal Conjunctivae: conjunctivae normal Pupils: Equal, round and reactive pupils present EOM: EOMs intact bilaterally Neck: Neck: Yes normal visual inspection, Yes full ROM and Yes no lymphadenopathy Chest: Chest palpation & inspection: normal inspection of the chest Resp: Effort & Inspection: normal respiratory effort and able to speak in complete sentences Auscultation: clear to auscultation bilaterally Cardio: Rate: regular rate Rhythm: regular rhythm GI: Inspection: Yes normal to inspection Palpation (GI): Soft to palpation, not firm, Tenderness to palpation present (GI) (Diffusely), Guarding due to palpation present (GI) and not rigid Auscultation: normal bowel sounds and abnormal bowel sounds Neuro: General: patient oriented x3 and moves all extremities Cranial nerves: Yes Equal, round and reactive pupils present Cognition (Neuro): normal cognition Motor exam (neuro): 5/5 motor strength present throughout Sensory Exam: Normal double simultaneous stimulation for sensation Coordination: [id number] test normal Extrem: General: Yes normal to inspection, Yes full ROM and Yes capillary refill normal Psych: Appearance: grossly normal Mental Status: mental status grossly normal Affect: normal affect Attitude: cooperative Thought process: Normal thought process present Thought content: Normal thought content present Insight: Good insight present (Psych) Results Labs CBC & Chem 7: 05/22/22 04:43 05/22/22 04:43 Labs: Short CBC 05/21/22 Range/Units 08:23 WBC 9.0 (4.8-10.8) X10*3/uL Hgb 14.8 (14.0-18.0) g/dl Hct 45.6 (42.0-52.0) % Plt Count 257 (160-400) X10*3/uL BMP 05/21/22 08:23 Sodium 137 Potassium 4.5 Chloride 98 Carbon Dioxide 27 BUN 14 Creatinine 0.92 Calcium 9.5 D Liver Function 05/21/22 Range/Units 08:23 Total Bilirubin 0.9 (0.0-1.0) mg/dL AST 26 (5-37) U/L ALT 28 (0-40) U/L Alkaline Phosphatase 71 (39-117) U/L Albumin 4.7 (3.5-5.0) g/dL Urine 05/21/22 Range/Units 10:59 Urine Color Yellow Urine Appearance Clear Urine pH 8.5 (5.0-9.0) Ur Specific [place] >= 1.030 H (1.005-1.025) Urine Protein Negative (Neg-Trace) mg/dL Urine Glucose (UA) Negative (Negative) mg/dL Imaging CT scan - abdomen: Attestation: I personally reviewed and interpreted this imaging study as follows: My impression: mesneteric stranding small bowel, free fluid, enteritis Assessment and Plan (1) Crohns disease of small intestine: Status: Acute (2) Abdominal pain: Status: Acute Plan 1/ Small bowel inflammation with mesenteric stranding and free fluid, seems temporally related to food consumption with fast food. His c diff PCR is pos but this is not helpful given recent pos testing as PCR can remain pos even after successful treatment ddx: crohns flare, infectious gastroenteritis, recurrent c diff Plan: 1/ Allow clears as tolerated, if evidence of obstruction or unable to take Po then NPO and NGT with suction, IVF 2/ for meantime cont with abx as doing incl vancomycin and reassess clinical response over coming days 3/ crohns flare still possible, if not improving with abx then prednisone treatment and will have to reassess treatment with remicade in exchange for another biologic. Procedures Date of Service Date of Service: 05/21/22
[2022-05-21 22:28] LABS: C Reactive Protein 0.24 mg/dL (< or = 0.50)
--- NOTE | 2022-05-21 23:20 | PC.NURSE ---
Delayed in medication due to being critical pt. pt medicated per Mar.
[2022-05-22 00:19] VITALS: BP 126/72; PULSE 71; RESP 18; O2SAT 96
[2022-05-22 00:39] VITALS: BP 115/67; PULSE 52; RESP 16; O2SAT 98
[2022-05-22] MEDS: 0.9 % Sodium Chloride 1,000 ML 100 ML IVCONT ×2 (02:13→11:42)
[2022-05-22] MEDS: vancomycin HCL 125 MG CAPSULE PO ×3 (03:13→15:34)
[2022-05-22 04:53] LABS: MANUAL DIFF FLAG NO
[2022-05-22 04:54] LABS: Basophils Percent Auto 0.4 % (0-2); Eosinophils Absolute Auto 0.3 X10*3/uL (0.0-0.4); Eosinophils Percent Auto 4.2 % (0-4); Hematocrit 39.5 % (42.0-52.0); Imm Gran Abs Auto 0.02 X10*3/uL (0.00-0.03); Imm Gran Pct Auto 0.3 % (0.0-0.4); Lymphocytes Absolute Auto 1.5 X10*3/uL (1.2-4.9); Lymphocytes Percent Auto 21.5 % (20-40); Mean Corpuscular HGB Conc 32.9 g/dl (31.0-36.0); Mean Corpuscular Hemoglobin 30.3 pg (27.0-33.0); Mean Corpuscular Volume 92.1 fL (80.0-98.0); Mean Platelet Volume 11.8 fL (9.4-12.4); Monocytes Absolute Auto 0.7 X10*3/uL (0.1-1.2); Neutrophils Absolute Auto 4.4 x10*3/uL (2.0-8.3); Neutrophils Percent Auto 63.6 % (45-73); Platelet Count 212 X10*3/uL (160-400); Red Blood Count 4.29 X10*6/uL (4.60-5.80); Red Cell Distribution Width 14.6 % (11.0-16.0)
[2022-05-22 05:10] LABS: Anion Gap 11 (12-20); Blood Urea Nitrogen 11 mg/dL (9-16); Calcium 8.7 mg/dL (8.4-10.2); Carbon Dioxide 30 mmol/L (22-29); Chloride 103 mmol/L (96-108); Creatinine Clr Calc Pharmacy 121.4; Estimated Glomerular Filt Rate > 60; Glucose Random 92 mg/dL (60-115); Sodium 140 mmol/L (135-145)
[2022-05-22 06:54] VITALS: BP 119/78; PULSE 47; RESP 14; O2SAT 96
--- NOTE | 2022-05-22 08:22 | P.PNGS_ITS ---
Subjective Subjective Date of Service: 05/22/22 Patient reports: no new complaints and feels better Interval history: The patient reports that his abdominal pain has lessened and he is passing gas and tolerating clears, however he has not had a bowel movement. Partially, the bowel movement issue is due to a bedside commode and a shared room. He has a repeat C. diff PCR that is positive but he is not having diarrhea so I am not sure of the significance of this result in the setting. At this time, there is no acute surgical pathology and I will sign off. Please call me if there are any questions. Physical Exam Vital Signs: Vital Signs: Last Vital Signs Temp 98.5 F 05/21/22 13:46 Pulse 47 L 05/22/22 06:54 Resp 14 05/22/22 06:54 BP 119/78 05/22/22 06:54 Pulse Ox 96 05/22/22 06:54 O2 Del Method 05/22/22 06:54 BMI result Body Mass Index 31.0 Objective Data Active Medications Acetaminophen (Acetaminophen 325 Mg Tablet) 650 mg PO Q6H PRN PRN Reason: Pain, Mild (Pain Scale 1-3) Azathioprine (Azathioprine 50 Mg Tablet) 100 mg PO BID [facility] Enoxaparin Sodium (Enoxaparin Sodium 40 Mg/0.4 Ml Syringe) 40 mg SUBCUT Q24H [facility] Last Admin: 05/21/22 14:23 Dose: 40 mg Documented By: DAINA Sodium Chloride (Ns) 1,000 mls @ 100 mls/hr IVCONT .Q10H [facility] Last Admin: 05/22/22 02:13 Dose: 100 mls/hr Documented By: SIDDHARTHA Comments: previous infusion was not complete Levofloxacin (Levaquin) 750 mg in 150 mls @ 100 mls/hr IV Q24H [facility] Cefepime HCl 2 gm/ Sodium (Chloride) 50 mls @ 100 mls/hr IV Q8H [facility] Morphine Sulfate (Morphine Sulfate 2 Mg/Ml Cartridge) 2 mg IVPUSH Q4H PRN; Protocol PRN Reason: Pain, Severe (Pain Scale 7-10) Last Admin: 05/21/22 18:53 Dose: 2 mg Documented By: LOUISA Omeprazole (Omeprazole 20 Mg Capsule.) 20 mg PO DAILY@0630 [facility] Ondansetron HCl (Ondansetron Hcl 4 Mg/2 Ml Vial) 4 mg IVPUSH Q8H PRN PRN Reason: Nausea and Vomiting Last Admin: 05/21/22 18:53 Dose: 4 mg Documented By: LOUISA Pharmacy Consult (Consult Rx Perform Med Rec) 1 each MISCELLANE ONCE PRN PRN Reason: Consult order Sodium Chloride (0.9 % Sodium Chloride Flush 3 Ml Syringe) 3 ml IVFLUSH QSHIFT [facility] Last Admin: 05/22/22 02:15 Dose: Not Given Documented By: SIDDHARTHA Non-Admin Reason: IV Running Vancomycin HCl (Vancomycin Hcl 125 Mg Capsule) 125 mg PO Q6H [facility] Stop: 05/31/22 14:59 Last Admin: 05/22/22 03:13 Dose: 125 mg Documented By: SIDDHARTHA Labs CBC & Chem 7: 05/22/22 04:43 05/22/22 04:43 Labs: Laboratory Results - last 24 hr 05/21/22 05/21/22 05/21/22 08:23 08:23 10:59 MCV 90.3 MCH 29.3 MCHC 32.5 RDW 14.4 Plt Count 257 MPV 11.7 Immature Gran % (Auto) 0.3 Neut % (Auto) 87.9 H Lymph % (Auto) 6.1 L [place] % (Auto) 5.0 Eos % (Auto) 0.4 Baso % (Auto) 0.3 Lymph # (Auto) 0.6 L [place] # (Auto) 0.5 Eos # (Auto) 0.0 Baso # (Auto) 0.0 Abs Immat Gran (auto) 0.03 Absolute Neuts (auto) 7.9 Absolute Nucleated RBC 0.000 Nucleated RBC % (auto) 0.0 Anion Gap 17 Estim Creat Clear Calc 117.5 Estimated GFR > 60 Random Glucose 124 H D Calcium 9.5 D Total Bilirubin 0.9 AST 26 ALT 28 Alkaline Phosphatase 71 C-Reactive Protein 0.24 Total Protein 7.3 Albumin 4.7 Lipase 25 Urine Color Yellow Urine Appearance Clear Urine pH 8.5 Ur Specific Hardy >= 1.030 H Urine Protein Negative Urine Glucose (UA) Negative Urine Ketones Negative Urine Blood Negative Urine Nitrite Negative Ur Leukocyte Esterase Negative C. difficile Tox B Gene C. difficile Toxin A&B C. difficile Interpret COVID-19 ([facility]) COVID-19 Clin Com 05/21/22 05/21/22 05/22/22 15:45 18:47 04:43 MCV 92.1 MCH 30.3 MCHC 32.9 RDW 14.6 Plt Count 212 MPV 11.8 Immature Gran % (Auto) 0.3 Neut % (Auto) 63.6 Lymph % (Auto) 21.5 [place] % (Auto) 10.0 Eos % (Auto) 4.2 H Baso % (Auto) 0.4 Lymph # (Auto) 1.5 [place] # (Auto) 0.7 Eos # (Auto) 0.3 Baso # (Auto) 0.0 Abs Immat Gran (auto) 0.02 Absolute Neuts (auto) 4.4 Absolute Nucleated RBC 0.000 Nucleated RBC % (auto) 0.0 Anion Gap Estim Creat Clear Calc Estimated GFR Random Glucose Calcium Total Bilirubin AST ALT Alkaline Phosphatase C-Reactive Protein Total Protein Albumin Lipase Urine Color Urine Appearance Urine pH Ur Specific Hardy Urine Protein Urine Glucose (UA) Urine Ketones Urine Blood Urine Nitrite Ur Leukocyte Esterase C. difficile Tox B Gene POSITIVE A* C. difficile Toxin A&B Negative C. difficile Interpret SEE NOTE COVID-19 ([facility]) Negative [facility] See Note 05/22/22 04:43 MCV MCH MCHC RDW Plt Count MPV Immature Gran % (Auto) Neut % (Auto) Lymph % (Auto) [place] % (Auto) Eos % (Auto) Baso % (Auto) Lymph # (Auto) [place] # (Auto) Eos # (Auto) Baso # (Auto) Abs Immat Gran (auto) Absolute Neuts (auto) Absolute Nucleated RBC Nucleated RBC % (auto) Anion Gap 11 L Estim Creat Clear Calc 121.4 Estimated GFR > 60 Random Glucose 92 Calcium 8.7 D Total Bilirubin AST ALT Alkaline Phosphatase C-Reactive Protein Total Protein Albumin Lipase Urine Color Urine Appearance Urine pH Ur Specific Hardy Urine Protein Urine Glucose (UA) Urine Ketones Urine Blood Urine Nitrite Ur Leukocyte Esterase C. difficile Tox B Gene C. difficile Toxin A&B C. difficile Interpret COVID-19 ([facility]) [facility] Procedures Date of Service Date of Service: 05/22/22 Progress Note: A&P Time Spent With Patient Time: Total time spent is greater than 50% in coordination of care (as documented) at patient's floor/unit and/or counseling patient: Quality Stroke Does the patient have a stroke diagnosis?: No VTE Prior VTE?: No VTE Risk Level:: Medical - moderate - high VTE Device Contraindication: Treatment Not Indicated VTE Drug Contraindication: N/A - Med Ordered
[2022-05-22] MEDS: cefEPime HCl 2 GM in 0.9 % Sodium Chloride 50 ML IV (08:40)
[2022-05-22] MEDS: Omeprazole 20 MG CAPSULE.DR PO (08:41)
--- NOTE | 2022-05-22 08:53 | PM.EVENT ---
Event Note Date of Service: 05/21/22 Event Note: This patient is seen and examined with APC on 05/21/22. 36 year old male hx of crohns came with abdominal pain. patient states that he just had a positive C.diff test earlier this month and just finished his vancomycin a few days ago He reported some nausea and several episodes of vomiting and reported that he has felt constipated as he had had a small bowel movement yesterday Lab imaging reviewed. CBC and electrolytes are normal, No fever ct abd:? od PBO vs eneritis/colitis Physical exam : Appearance: Alert.? Oriented.? cvs: [id number], [id number] . res: clear to auscultation abd: no rebound or guarding ,nt, bs present. ext pulses present , no cyanosis . neuro: nonfocal. assessment and plan coordinated in APCs note, Agree with the plan in addition: colitis vs crohn related cotninue po antibiotics stool studies follow up Gi and surgery eval for abnormal ct abd.
[2022-05-22 09:19] LABS: C Reactive Protein 0.33 mg/dL (< or = 0.50)
[2022-05-22] MEDS: levoFLOXacin/D5W 750 MG/150 ML PIGGYBACK 100 MG IV (09:38)
[2022-05-22] MEDS: azaTHIOprine 50 MG TABLET 100 MG PO (09:38)
--- NOTE | 2022-05-22 12:16 | MHC.CM.PN ---
Met with patient in regards to discharge planning. Patient lives with his , ambulates independently and had no services prior to coming to the hospital. No services anticipated to be needed because patient is not homebound. PCP verified as Dr Joseph Burger. Patient received 2 Pfizer vaccines. Patient will transport himself home when medically stable. Continue to monitor for d/c needs.
[2022-05-22 13:09] LABS: Campylobacter Not Detected (Not Detect.); E. coli EAEC Not Detected (Not Detect.); E. coli EPEC Not Detected (Not Detect.); E. coli ETEC Not Detected (Not Detect.); E. coli STEC Not Detected (Not Detect.); Plesiomonas shigelloides Not Detected (Not Detect.); Salmonella Not Detected (Not Detect.); Shigella sp./EIEC Not Detected (Not Detect.); Vibrio Not Detected (Not Detect.); Vibrio Cholerae Not Detected (Not Detect.); Yersinia enterocolitica Not Detected (Not Detect.)
[2022-05-22 13:10] LABS: Adenovirus F 40/41 Not Detected (Not Detect.); Astrovirus Not Detected (Not Detect.); Cryptosporidium Not Detected (Not Detect.); Cyclospora cayetanensis Not Detected (Not Detect.); Entamoeba histolytica Not Detected (Not Detect.); Giardia lamblia Not Detected (Not Detect.); Norovirus GI/GII Not Detected (Not Detect.); Rotavirus A Not Detected (Not Detect.); Sapovirus Not Detected (Not Detect.)
--- NOTE | 2022-05-22 13:19 | P.DS_ITS ---
DS: Providers Provider Date of Service: 05/22/22 Date of admission: 05/21/22 13:41 Primary care physician: Joseph Burger MD Consults: 05/21/22 11:22 Consult to General Surgery Stat Consulting Provider: eRal Landry Reason for consultation: possible SBO 05/21/22 12:55 Consult to Gastroenterology Routine Consulting Provider: Yaritza Mendoza Reason for consultation: colitis Has provider been notified: No Attending physician on discharge: Avel Smith Discharging clinician: Pia Zheng DS: Diagnosis Discharge Diagnosis (1) Abnormal CT of the abdomen: Status: Acute DS: Summary Hospital Course Hospital Course: 36-year-old [place]uean-speaking male presented to the ER with complaints of abdominal pain that started approximately 24 hours ago.? He does have a history of Crohn's disease and was recently treated for C diff completing 10 days of vancomycin a few days ago.? He reported some nausea and several episodes of vomiting and reported that he has felt constipated as he had had a small bowel movement yesterday but that was it. He denied chest pain, shortness of breath, sick contacts, improperly cooked foods.? In the ER, all labs within acceptable limits, vital signs stable.? No fever or leukocytosis noted.? Abdominal CT showed suspicion for obstruction however he was seen by General surgery who did not appreciate any acute surgical abnormalities, no evidence of perforation, likely secondary to Crohn's flare.? At this time is comfortable resting in bed.? He will be admitted for further management and treatment of acute on chronic colitis. Colitis. Recent cdiff tx C diff positive but may be transient from previous C diff and treatment with vancomycin Discussed with GI, will treat for presumed cdiff with po vancomycin for another 10 day treatment Clear liquid diet initially then advanced to regular Hx crohns.? Symptoms could also be secondary to Crohn's flare on Infliximab and azathropine chronically Continue home medications GI following outpatient GERD PPI Time Spent with Patient Time attestation: Total time spent providing and/or coordinating discharge services: Physical Exam Vital Signs: Vital Signs: Last Vital Signs Temp 98.5 F 05/21/22 13:46 Pulse 47 L 05/22/22 06:54 Resp 14 05/22/22 06:54 BP 119/78 05/22/22 06:54 Pulse Ox 96 05/22/22 06:54 O2 Del Method 05/22/22 06:54 BMI result Body Mass Index 31.0 Appearing in no acute distress head is normocephalic atraumatic eyes pupils are PERRLA sclera is anicteric mouth throat mucous membranes are intact and moist neck is supple no lymphadenopathy, no JVD noted lung sounds are clear to auscultation heart regular rate rhythm, clear S1, S2 positive bowel sounds, abdomen is soft, nontender neuro patient is alert x3, no focal deficits DS: Data Data Completed and Pending Labs on day of discharge: Laboratory Results - last 24 hr 05/21/22 05/21/22 05/21/22 08:23 15:45 15:45 WBC RBC Hgb Hct MCV MCH MCHC RDW Plt Count MPV Immature Gran % (Auto) Neut % (Auto) Lymph % (Auto) [place] % (Auto) Eos % (Auto) Baso % (Auto) Lymph # (Auto) [place] # (Auto) Eos # (Auto) Baso # (Auto) Abs Immat Gran (auto) Absolute Neuts (auto) Absolute Nucleated RBC Nucleated RBC % (auto) Sodium Potassium Chloride Carbon Dioxide Anion Gap BUN Creatinine Estim Creat Clear Calc Estimated GFR Random Glucose Calcium C-Reactive Protein 0.24 Stl C. cayetanensis PCR Not Detected Stool Rotavirus A PCR Not Detected Stl Adenov F 40/41 PCR Not Detected Stool Astrovirus (PCR) Not Detected Stool Campylobacter PCR Not Detected Stool Cryptosporidium PCR Not Detected Stl Sh Tox Pr E STEC PCR Not Detected Stool E coli O157 PCR Not applicable Stl Enterotoxigenic E PCR Not Detected Stool EPEC (PCR) Not Detected Stool EAEC (PCR) Not Detected Stl E. histolytica PCR Not Detected Stool Giardia Lamblia PCR Not Detected Stl P. shigelloides PCR Not Detected Stool Salmonella PCR Not Detected Stool Sapovirus (PCR) Not Detected Stl Shigella/EIEC PCR Not Detected St Y.enterocolitica PCR Not Detected Stool Vibrio (PCR) Not Detected Stl Vibrio cholerae PCR Not Detected Stl Norovirus GI/GII PCR Not Detected C. difficile Tox B Gene POSITIVE A* C. difficile Toxin A&B Negative C. difficile Interpret SEE NOTE COVID-19 ([facility]) COVID-19 Clin Com 05/21/22 05/22/22 05/22/22 18:47 04:43 04:43 WBC 7.0 RBC 4.29 L Hgb 13.0 L Hct 39.5 L MCV 92.1 MCH 30.3 MCHC 32.9 RDW 14.6 Plt Count 212 MPV 11.8 Immature Gran % (Auto) 0.3 Neut % (Auto) 63.6 Lymph % (Auto) 21.5 [place] % (Auto) 10.0 Eos % (Auto) 4.2 H Baso % (Auto) 0.4 Lymph # (Auto) 1.5 [place] # (Auto) 0.7 Eos # (Auto) 0.3 Baso # (Auto) 0.0 Abs Immat Gran (auto) 0.02 Absolute Neuts (auto) 4.4 Absolute Nucleated RBC 0.000 Nucleated RBC % (auto) 0.0 Sodium 140 Potassium 4.0 Chloride 103 Carbon Dioxide 30 H Anion Gap 11 L BUN 11 Creatinine 0.89 Estim Creat Clear Calc 121.4 Estimated GFR > 60 Random Glucose 92 Calcium 8.7 D C-Reactive Protein Stl C. cayetanensis PCR Stool Rotavirus A PCR Stl Adenov F 40/41 PCR Stool Astrovirus (PCR) Stool Campylobacter PCR Stool Cryptosporidium PCR Stl Sh Tox Pr E STEC PCR Stool E coli O157 PCR Stl Enterotoxigenic E PCR Stool EPEC (PCR) Stool EAEC (PCR) Stl E. histolytica PCR Stool Giardia Lamblia PCR Stl P. shigelloides PCR Stool Salmonella PCR Stool Sapovirus (PCR) Stl Shigella/EIEC PCR St Y.enterocolitica PCR Stool Vibrio (PCR) Stl Vibrio cholerae PCR Stl Norovirus GI/GII PCR C. difficile Tox B Gene C. difficile Toxin A&B C. difficile Interpret COVID-19 ([facility]) Negative COVID-19 Clin Com See Note 05/22/22 08:51 WBC RBC Hgb Hct MCV MCH MCHC RDW Plt Count MPV Immature Gran % (Auto) Neut % (Auto) Lymph % (Auto) [place] % (Auto) Eos % (Auto) Baso % (Auto) Lymph # (Auto) [place] # (Auto) Eos # (Auto) Baso # (Auto) Abs Immat Gran (auto) Absolute Neuts (auto) Absolute Nucleated RBC Nucleated RBC % (auto) Sodium Potassium Chloride Carbon Dioxide Anion Gap BUN Creatinine Estim Creat Clear Calc Estimated GFR Random Glucose Calcium C-Reactive Protein 0.33 Stl C. cayetanensis PCR Stool Rotavirus A PCR Stl Adenov F 40/41 PCR Stool Astrovirus (PCR) Stool Campylobacter PCR Stool Cryptosporidium PCR Stl Sh Tox Pr E STEC PCR Stool E coli O157 PCR Stl Enterotoxigenic E PCR Stool EPEC (PCR) Stool EAEC (PCR) Stl E. histolytica PCR Stool Giardia Lamblia PCR Stl P. shigelloides PCR Stool Salmonella PCR Stool Sapovirus (PCR) Stl Shigella/EIEC PCR St Y.enterocolitica PCR Stool Vibrio (PCR) Stl Vibrio cholerae PCR Stl Norovirus GI/GII PCR C. difficile Tox B Gene C. difficile Toxin A&B C. difficile Interpret COVID-19 ([facility]) COVID-19 Clin Com Discharge Plan Discharge Anticipated Discharge Date/Time: 05/22/22 13:17 Patient Disposition: Home, Self-Care Discharge Diagnosis: Mild Crohn's exacerbation Positive C diff Referrals: Joseph Burger MD [Primary Care Provider] - 1 Week Discharge Medications: New vancomycin 125 mg Capsule 125 mg PO Q6H Qty: 36 0RF Continued Remicade 100 mg recon soln 500 mg IV Q8W 56 Days Qty: 5 3RF Rx Instructions: Administer 5mg/kg intravenously over over 2 hrs, round to the nearest 100mg azathioprine 50 mg tablet 100 mg PO BID 90 Days Qty: 360 1RF Galzin 50 mg (zinc) capsule 50 mg PO DAILY 90 Days Qty: 90 1RF omeprazole 20 mg capsule,delayed release(DR/EC) 20 mg PO DAILY Qty: 90 1RF Diet: Advance to usual diet Activity on Discharge: As tolerated Stand Alone Forms: Patient Portal Discharge page Care Plan Goals: Complete resolution of symptoms Health Concerns: Mild Crohn's exacerbation Positive C diff Plan of Treatment: Follow-up with caption writer as an outpatient continue vancomycin 125 mg every 6 hours total 10 day treatment Assessment: See discharge summary
--- NOTE | 2022-05-22 13:21 | HO.PM.IMPN ---
Subjective Subjective Date of Service: 05/22/22 Review of Systems Follow-up Crohn's colitis flare Feeling better, diet advanced, denies nausea vomiting or diarrhea Physical Exam Vital Signs: Vital Signs: Last Vital Signs Temp 98.5 F 05/21/22 13:46 Pulse 47 L 05/22/22 06:54 Resp 14 05/22/22 06:54 BP 119/78 05/22/22 06:54 Pulse Ox 96 05/22/22 06:54 O2 Del Method 05/22/22 06:54 BMI result Body Mass Index 31.0 Appearing in no acute distress lung sounds are clear to auscultation heart regular rate rhythm, clear S1, S2 positive bowel sounds, abdomen is soft, nontender neuro patient is alert x3, no focal deficits Objective Data Active Medications Acetaminophen (Acetaminophen 325 Mg Tablet) 650 mg PO Q6H PRN PRN Reason: Pain, Mild (Pain Scale 1-3) Azathioprine (Azathioprine 50 Mg Tablet) 100 mg PO BID [facility] Last Admin: 05/22/22 09:38 Dose: 100 mg Documented By: ANA Enoxaparin Sodium (Enoxaparin Sodium 40 Mg/0.4 Ml Syringe) 40 mg SUBCUT Q24H [facility] Last Admin: 05/21/22 14:23 Dose: 40 mg Documented By: DAINA Sodium Chloride (Ns) 1,000 mls @ 100 mls/hr IVCONT .Q10H [facility] Last Admin: 05/22/22 11:42 Dose: 100 mls/hr Documented By: ANA Levofloxacin (Levaquin) 750 mg in 150 mls @ 100 mls/hr IV Q24H [facility] Last Admin: 05/22/22 09:38 Dose: 100 mls/hr Documented By: ANA Cefepime HCl 2 gm/ Sodium (Chloride) 50 mls @ 100 mls/hr IV Q8H [facility] Last Infusion: 05/22/22 10:32 Dose: 0 mls/hr Documented By: FRANSISCO Morphine Sulfate (Morphine Sulfate 2 Mg/Ml Cartridge) 2 mg IVPUSH Q4H PRN; Protocol PRN Reason: Pain, Severe (Pain Scale 7-10) Last Admin: 05/21/22 18:53 Dose: 2 mg Documented By: LOUISA Omeprazole (Omeprazole 20 Mg Capsule.Dr) 20 mg PO DAILY@0630 [facility] Last Admin: 05/22/22 08:41 Dose: 20 mg Documented By: ANA Ondansetron HCl (Ondansetron Hcl 4 Mg/2 Ml Vial) 4 mg IVPUSH Q8H PRN PRN Reason: Nausea and Vomiting Last Admin: 05/21/22 18:53 Dose: 4 mg Documented By: LOUISA Pharmacy Consult (Consult Rx Perform Med Rec) 1 each MISCELLANE ONCE PRN PRN Reason: Consult order Sodium Chloride (0.9 % Sodium Chloride Flush 3 Ml Syringe) 3 ml IVFLUSH QSHIFT [facility] Last Admin: 05/22/22 08:45 Dose: Not Given Documented By: FRANSISCO Non-Admin Reason: IV Running Vancomycin HCl (Vancomycin Hcl 125 Mg Capsule) 125 mg PO Q6H [facility] Stop: 05/31/22 14:59 Last Admin: 05/22/22 08:41 Dose: 125 mg Documented By: ANA Labs CBC & Chem 7: 05/22/22 04:43 05/22/22 04:43 Labs: Laboratory Results - last 24 hr 05/21/22 05/21/22 05/21/22 08:23 15:45 15:45 MCV MCH MCHC RDW Plt Count MPV Immature Gran % (Auto) Neut % (Auto) Lymph % (Auto) [place] % (Auto) Eos % (Auto) Baso % (Auto) Lymph # (Auto) [place] # (Auto) Eos # (Auto) Baso # (Auto) Abs Immat Gran (auto) Absolute Neuts (auto) Absolute Nucleated RBC Nucleated RBC % (auto) Anion Gap Estim Creat Clear Calc Estimated GFR Random Glucose Calcium C-Reactive Protein 0.24 Stl C. cayetanensis PCR Not Detected Stool Rotavirus A PCR Not Detected Stl Adenov F 40/41 PCR Not Detected Stool Astrovirus (PCR) Not Detected Stool Campylobacter PCR Not Detected Stool Cryptosporidium PCR Not Detected Stl Sh Tox Pr E STEC PCR Not Detected Stool E coli O157 PCR Not applicable Stl Enterotoxigenic E PCR Not Detected Stool EPEC (PCR) Not Detected Stool EAEC (PCR) Not Detected Stl E. histolytica PCR Not Detected Stool Giardia Lamblia PCR Not Detected Stl P. shigelloides PCR Not Detected Stool Salmonella PCR Not Detected Stool Sapovirus (PCR) Not Detected Stl Shigella/EIEC PCR Not Detected St Y.enterocolitica PCR Not Detected Stool Vibrio (PCR) Not Detected Stl Vibrio cholerae PCR Not Detected Stl Norovirus GI/GII PCR Not Detected C. difficile Tox B Gene POSITIVE A* C. difficile Toxin A&B Negative C. difficile Interpret SEE NOTE COVID-19 ([facility]) COVID-19 Clin Com 05/21/22 05/22/22 05/22/22 18:47 04:43 04:43 MCV 92.1 MCH 30.3 MCHC 32.9 RDW 14.6 Plt Count 212 MPV 11.8 Immature Gran % (Auto) 0.3 Neut % (Auto) 63.6 Lymph % (Auto) 21.5 [place] % (Auto) 10.0 Eos % (Auto) 4.2 H Baso % (Auto) 0.4 Lymph # (Auto) 1.5 [place] # (Auto) 0.7 Eos # (Auto) 0.3 Baso # (Auto) 0.0 Abs Immat Gran (auto) 0.02 Absolute Neuts (auto) 4.4 Absolute Nucleated RBC 0.000 Nucleated RBC % (auto) 0.0 Anion Gap 11 L Estim Creat Clear Calc 121.4 Estimated GFR > 60 Random Glucose 92 Calcium 8.7 D C-Reactive Protein Stl C. cayetanensis PCR Stool Rotavirus A PCR Stl Adenov F 40/41 PCR Stool Astrovirus (PCR) Stool Campylobacter PCR Stool Cryptosporidium PCR Stl Sh Tox Pr E STEC PCR Stool E coli O157 PCR Stl Enterotoxigenic E PCR Stool EPEC (PCR) Stool EAEC (PCR) Stl E. histolytica PCR Stool Giardia Lamblia PCR Stl P. shigelloides PCR Stool Salmonella PCR Stool Sapovirus (PCR) Stl Shigella/EIEC PCR St Y.enterocolitica PCR Stool Vibrio (PCR) Stl Vibrio cholerae PCR Stl Norovirus GI/GII PCR C. difficile Tox B Gene C. difficile Toxin A&B C. difficile Interpret COVID-19 ([facility]) Negative COVID-19 Clin Com See Note 05/22/22 08:51 MCV MCH MCHC RDW Plt Count MPV Immature Gran % (Auto) Neut % (Auto) Lymph % (Auto) [place] % (Auto) Eos % (Auto) Baso % (Auto) Lymph # (Auto) [place] # (Auto) Eos # (Auto) Baso # (Auto) Abs Immat Gran (auto) Absolute Neuts (auto) Absolute Nucleated RBC Nucleated RBC % (auto) Anion Gap Estim Creat Clear Calc Estimated GFR Random Glucose Calcium C-Reactive Protein 0.33 Stl C. cayetanensis PCR Stool Rotavirus A PCR Stl Adenov F 40/41 PCR Stool Astrovirus (PCR) Stool Campylobacter PCR Stool Cryptosporidium PCR Stl Sh Tox Pr E STEC PCR Stool E coli O157 PCR Stl Enterotoxigenic E PCR Stool EPEC (PCR) Stool EAEC (PCR) Stl E. histolytica PCR Stool Giardia Lamblia PCR Stl P. shigelloides PCR Stool Salmonella PCR Stool Sapovirus (PCR) Stl Shigella/EIEC PCR St Y.enterocolitica PCR Stool Vibrio (PCR) Stl Vibrio cholerae PCR Stl Norovirus GI/GII PCR C. difficile Tox B Gene C. difficile Toxin A&B C. difficile Interpret COVID-19 ([facility]) COVID-19 Clin Com Assessment and Plan (1) Abdominal pain: Status: Acute Plan 36 year old burundian speaking man admitted with acute on chronic colitis with recent hx of cdiff s/p treatment with oral vancomycin. Colitis. Recent cdiff tx C diff positive, may be transient from previous C diff diagnosis and vancomycin treatment Discussed with GI, will treat for presumed cdiff with po vancomycin Diet advanced to regular IV fluids stopped Hx crohns.? Symptoms could also be secondary to Crohn's flare on Infliximab and azathropine chronically Continue home medications Wait for stool studies GI following GERD PPI DVT prophylaxis with Lovenox attending Dr. Smith Full code possible 2 midnight stay for acute colitis, possibly cdiff? requiring antibiotic management Quality Stroke Does the patient have a stroke diagnosis?: No VTE Prior VTE?: No VTE Risk Level:: Medical - moderate - high VTE Device Contraindication: Treatment Not Indicated VTE Drug Contraindication: N/A - Med Ordered
[2022-05-22 14:22] VITALS: BP 147/73; PULSE 63; RESP 12; O2SAT 100
== END 2022-05-22 17:15 | disposition home or self-care (01) | DRG 245 ==
LOC: HO.ED 08:29 → HO.EDOVER 13:45
PROVIDERS: Internal Medicine Gastroenterology; Physician Assistant Medical; Admitting Provider Nurse Practitioner Acute Care; Emergency Provider Emergency Medicine; PCP Internal Medicine; Visit Provider Nurse Practitioner Acute Care
DX: K50.00 Crohn's disease of small intestine without complications (principal); A04.71 Enterocolitis due to Clostridium difficile, recurrent; D84.821 Immunodeficiency due to drugs; Z88.0 Allergy status to penicillin; Z79.899 Other long term (current) drug therapy
CPT/HCPCS: 36415; 74177; 80048; 80053; 81003; 83690; 85025; 86140; 87324; 87493; 87507; 87635; 99285; J0692; J1650; J1956; J2270; J2405; Q9967

== ENCOUNTER 2022-05-30 08:35 | Outpatient (REF) | payer OTHER, SELFPAY ==
[2022-05-30 08:50] LABS: MANUAL DIFF FLAG NO
[2022-05-30 09:29] LABS: Basophils Percent Auto 0.7 % (0-2); Eosinophils Absolute Auto 0.3 X10*3/uL (0.0-0.4); Eosinophils Percent Auto 7.7 % (0-4); Hematocrit 42.2 % (42.0-52.0); Hemoglobin 13.6 g/dl (14.0-18.0); Imm Gran Abs Auto 0.01 X10*3/uL (0.00-0.03); Imm Gran Pct Auto 0.2 % (0.0-0.4); Lymphocytes Percent Auto 24.3 % (20-40); Mean Corpuscular HGB Conc 32.2 g/dl (31.0-36.0); Mean Corpuscular Hemoglobin 28.9 pg (27.0-33.0); Mean Corpuscular Volume 89.6 fL (80.0-98.0); Mean Platelet Volume 12.3 fL (9.4-12.4); Monocytes Absolute Auto 0.4 X10*3/uL (0.1-1.2); Monocytes Percent Auto 10.1 % (2-11); Neutrophils Absolute Auto 2.4 x10*3/uL (2.0-8.3); Platelet Count 230 X10*3/uL (160-400); Red Blood Count 4.71 X10*6/uL (4.60-5.80); White Blood Count 4.2 X10*3/uL (4.8-10.8)
[2022-05-30 10:08] LABS: Alanine Aminotransferase 25 U/L (0-40); Albumin Level 4.3 g/dL (3.5-5.0); Alkaline Phosphatase 62 U/L (39-117); Anion Gap 16 (12-20); Aspartate Amino Transferase 30 U/L (5-37); Bilirubin Total 0.5 mg/dL (0.0-1.0); Blood Urea Nitrogen 21 mg/dL (9-16); C Reactive Protein 0.04 mg/dL (< or = 0.50); Calcium 9.3 mg/dL (8.4-10.2); Carbon Dioxide 27 mmol/L (22-29); Chloride 101 mmol/L (96-108); Estimated Glomerular Filt Rate > 60; Glucose Random 88 mg/dL (60-115); Potassium 4.3 mmol/L (3.3-5.1); Sodium 140 mmol/L (135-145); Total Protein 6.7 g/dL (6.5-8.0)
[2022-05-30 11:58] LABS: CDiff Gene PCR NEGATIVE (Negative)
== END 2022-05-30 08:36 | disposition home or self-care (01) ==
LOC: HO.LAB 08:35
PROVIDERS: Visit Provider Internal Medicine Gastroenterology
DX: K50.00 Crohn's disease of small intestine without complications (principal); K75.81 Nonalcoholic steatohepatitis (NASH)
CPT/HCPCS: 36415; 80053; 85025; 86140; 87493

== ENCOUNTER 2022-06-03 07:39 | Outpatient (REF) | payer OTHER, SELFPAY | END 2022-06-03 07:40 | disposition home or self-care (01) | LOC: HO.MDS 07:39 | PROVIDERS: Visit Provider Internal Medicine Gastroenterology | DX: K50.00 Crohn's disease of small intestine without complications (principal) | CPT/HCPCS: 96413; 96415; J1745 ==

== ENCOUNTER 2022-07-29 08:00 | Outpatient (REF) | payer OTHER, SELFPAY | END 2022-07-29 08:01 | disposition home or self-care (01) | LOC: HO.MDS 08:00 | PROVIDERS: Visit Provider Internal Medicine Gastroenterology | DX: K50.00 Crohn's disease of small intestine without complications (principal) | CPT/HCPCS: 96413; 96415; J1745 ==

== ENCOUNTER 2022-09-23 07:52 | Outpatient (REF) | payer OTHER, SELFPAY | END 2022-09-23 07:53 | disposition home or self-care (01) | LOC: HO.MDS 07:52 | PROVIDERS: Visit Provider Internal Medicine Gastroenterology | DX: K50.00 Crohn's disease of small intestine without complications (principal) | CPT/HCPCS: 96413; 96415; J1745 ==

== ENCOUNTER 2022-11-18 08:58 | Outpatient (REF) | payer OTHER, SELFPAY | END 2022-11-18 08:59 | disposition home or self-care (01) | LOC: HO.MDS 08:58 | PROVIDERS: Visit Provider Internal Medicine Gastroenterology | DX: K50.00 Crohn's disease of small intestine without complications (principal) | CPT/HCPCS: 96413; 96415; J1745 ==

== ENCOUNTER 2023-01-13 09:12 | Outpatient (REF) | payer OTHER, SELFPAY | END 2023-01-13 09:13 | disposition home or self-care (01) | LOC: HO.MDS 09:12 | PROVIDERS: Visit Provider Internal Medicine Gastroenterology | DX: K50.90 Crohn's disease, unspecified, without complications (principal) | CPT/HCPCS: 96413; 96415; J1745 ==

== ENCOUNTER 2023-02-10 09:03 | Outpatient (REF) | payer OTHER, SELFPAY ==
[2023-02-10 10:12] LABS: MANUAL DIFF FLAG NO
[2023-02-10 10:18] LABS: Basophils Percent Auto 0.6 % (0-2); Eosinophils Absolute Auto 0.3 X10*3/uL (0.0-0.4); Eosinophils Percent Auto 4.5 % (0-4); Hematocrit 40.5 % (42.0-52.0); Hemoglobin 13.2 g/dl (14.0-18.0); Imm Gran Abs Auto 0.01 X10*3/uL (0.00-0.03); Imm Gran Pct Auto 0.2 % (0.0-0.4); Lymphocytes Absolute Auto 1.1 X10*3/uL (1.2-4.9); Lymphocytes Percent Auto 16.2 % (20-40); Mean Corpuscular HGB Conc 32.6 g/dl (31.0-36.0); Mean Corpuscular Hemoglobin 29.9 pg (27.0-33.0); Mean Corpuscular Volume 91.8 fL (80.0-98.0); Mean Platelet Volume 11.5 fL (9.4-12.4); Monocytes Absolute Auto 0.6 X10*3/uL (0.1-1.2); Monocytes Percent Auto 8.9 % (2-11); Neutrophils Absolute Auto 4.6 x10*3/uL (2.0-8.3); Neutrophils Percent Auto 69.6 % (45-73); Platelet Count 231 X10*3/uL (160-400); Red Blood Count 4.41 X10*6/uL (4.60-5.80); Red Cell Distribution Width 14.7 % (11.0-16.0); White Blood Count 6.6 X10*3/uL (4.8-10.8)
[2023-02-10 11:35] LABS: Alanine Aminotransferase 22 U/L (0-40); Albumin Level 4.2 g/dL (3.5-5.0); Alkaline Phosphatase 72 U/L (39-117); Anion Gap 11 (12-20); Aspartate Amino Transferase 27 U/L (5-37); Bilirubin Total 0.9 mg/dL (0.0-1.0); Blood Urea Nitrogen 15 mg/dL (9-16); C Reactive Protein < 0.04 mg/dL (< or = 0.50); Calcium 9.4 mg/dL (8.4-10.2); Carbon Dioxide 30 mmol/L (22-29); Chloride 103 mmol/L (96-108); Estimated Glomerular Filt Rate > 60; Glucose Random 89 mg/dL (60-115); Potassium 4.3 mmol/L (3.3-5.1); Sodium 140 mmol/L (135-145); Total Protein 6.7 g/dL (6.5-8.0)
[2023-02-10 11:58] LABS: Ferritin 21 ng/mL (20-250); Folate 10.8 ng/mL (> or = 4.0); Vitamin B12 521 pg/mL (200-900); Vitamin D 25-OH Total 53.5 ng/mL (>30)
[2023-02-14 18:49] LABS: Vitamin K1 151 pg/mL (130-1500)
[2023-02-14 22:33] LABS: Zinc 106 mcg/dL (60-130)
[2023-02-15 11:23] LABS: Vitamin B1 14 nmol/L (8-30)
[2023-02-15 12:22] LABS: Vitamin B6 16.6 ng/mL (2.1-21.7)
[2023-02-16 01:09] LABS: Alpha-Tocopherol 11.3 mg/L (5.7-19.9); Beta-Gamma Tocopherol <1.0 mg/L (<=4.3)
[2023-02-17 01:37] LABS: Vitamin A 61 mcg/dL (38-98)
[2023-02-17 23:18] LABS: Nicotinamide <20 ng/mL; Vit B3 - Nicotinic Acid <20 ng/mL
[2023-02-18 00:48] LABS: Vitamin B5 (Pantothenic Acid) <40 ng/mL (<275)
[2023-02-18 17:33] LABS: Vitamin C 0.7 mg/dL (0.2-2.1)
== END 2023-02-10 09:04 | disposition home or self-care (01) ==
LOC: HO.LAB 09:03
PROVIDERS: PCP Internal Medicine; Visit Provider Internal Medicine Gastroenterology
DX: K50.80 Crohn's disease of both small and large intestine without complications (principal); K75.81 Nonalcoholic steatohepatitis (NASH); K21.9 Gastro-esophageal reflux disease without esophagitis; N13.30 Unspecified hydronephrosis; Z79.899 Other long term (current) drug therapy
CPT/HCPCS: 36415; 80053; 82180; 82306; 82607; 82728; 82746; 84207; 84425; 84446; 84590; 84591; 84597; 84630; 85025; 86140; 99212

== ENCOUNTER 2023-02-10 15:13 | Outpatient (REF) | payer OTHER, SELFPAY ==
[2023-02-19 16:13] LABS: Lactoferrin, Fecal, Quant. <6.25 mcg/mL (<7.25)
== END 2023-02-10 15:14 | disposition home or self-care (01) ==
LOC: HO.LNP 15:13
PROVIDERS: Visit Provider Internal Medicine Gastroenterology
DX: K50.00 Crohn's disease of small intestine without complications (principal); N13.30 Unspecified hydronephrosis
CPT/HCPCS: 83631

== ENCOUNTER 2023-03-10 10:23 | Outpatient (REF) | payer OTHER, SELFPAY ==
[2023-03-13 03:14] LABS: TS Negative Control Passed; TS Panel A 0; TS Panel B 4; TS Positive Control Passed; TSpotTB Negative (Negative)
== END 2023-03-10 10:24 | disposition home or self-care (01) ==
LOC: HO.MDS 10:23
PROVIDERS: Visit Provider Internal Medicine Gastroenterology
DX: K50.00 Crohn's disease of small intestine without complications (principal); Z11.1 Encounter for screening for respiratory tuberculosis
CPT/HCPCS: 36415; 86481; 96413; 96415; J1745

== ENCOUNTER 2023-04-08 10:57 | Outpatient (AMB) | payer OTHER, SELFPAY ==
--- NOTE | 2023-04-08 11:50 | MHC.OFFWIV ---
Intake Vital Signs 04/08/23 11:52 Height 5 ft 7 in Weight 89.018 kg BMI 30.7 BP 130/74 Blood Pressure Location Lt brachial Pulse 69 Pulse Source Pulse Oximeter Temp 96.5 F L Temp Source Temporal Artery Scan Pulse Oximetry (%) 98 Oxygen Delivery Method Room Air Intake Visit Reasons: EST/possible allergy flair up/[phone] Intake Note: Pt is here c/o possible allergy flare up. Pt states he has become very itchy and is concerned it has to do with his allergies. Pt states his body feels really itchy and he has changed all his sheets and cleaned his clothes to see if that was the problem. Patient Tobacco Use Status: Never used Tobacco Allergies Penicillins [PENICILLINS] Allergy (Severe, Verified 04/08/23 11:50) HIVES Do you need a note to return to daycare/school/sports/work: No HPI HPI Comments History of Present Illness Details 37-year-old male presents with full body itching, feels like he is having allergic reaction. Patient does not report any rashes, or insect bites, but he feels itchy everywhere. Mostly when he goes to bed and after taking a shower. He does not report any new products, and has a dermatology appointment in 3 months. He states that he wanted evaluation because the itchiness is prevented him from sleeping. [facility] [place] Medical History Crohn's disease involving terminal ileum Crohns disease of small intestine Retroperitoneal fibrosis Surgical History History of esophagogastroduodenoscopy (EGD) Hx of colonoscopy Social History Patient Tobacco Use Status: Never used Tobacco service: No Current occupational status: employed Review of Systems Const Details: Constitutional: No Fever, No Chills Cardiovascular: No Chest Pain, No SOB Respiratory: No Cough, No Dyspnea Gastrointestinal: No Nausea, No Vomiting, No Diarrhea, No abdominal Pain Genitourinary: No Dysuria, No Hematuria Musculoskeletal: No joint pain, No Myalgias, No Joint Swelling Skin: Positive itching, No Skin lacerations, No rash Neuro: No Weakness, No Numbness, No Paresthesias, No Dizziness, No Headache All systems reviewed & are unremarkable except as noted in HPI and below Physical Exam Vital Signs: Last Vital Signs Temp 96.5 F L 04/08/23 11:52 Pulse 69 04/08/23 11:52 BP 130/74 04/08/23 11:52 Pulse Ox 98 04/08/23 11:52 Oxygen Delivery Method Room Air 04/08/23 11:52 BMI result Body Mass Index 30.7 Appearance: Alert. Oriented X3. No acute distress. Eyes: Pupils equal, round and reactive to light. Neck: Normal inspection. Neck supple. CVS: Normal heart rate and rhythm. Pulses normal. Respiratory: No respiratory distress. Breath sounds normal. Skin: Skin warm and dry. Normal skin color. Normal skin turgor. No indication of contact dermatitis, rashes, folliculitis, or lesions. No indication of insect bites. Extremities: No lower extremity edema. Gait well balanced well coordinated. Neuro: No motor deficit. No sensory deficit. Cranial nerves 2-12 intact Assessment & Plan Assessment & Plan (1) Itching: Code(s): L29.9 - Pruritus, unspecified Plan 37-year-old male presents for evaluation for a suspected contact dermatitis to his entire body. States that every time he goes to sleep he feels very itchy. He does shave his entire body, does not report using any new products. He does not feel like shaving or his soap is causing this problem. Patient states this has been going on for a few months. Physical exam indicates a shaved body, no indication of folliculitis, rashes, insect bites, or dermatitis. I feel this itchiness may be due to his depilatory process. Patient does have an appointment with Dermatology in 3 months. I advised this patient to keep this appointment, and considering he does not have any lesions, wounds, or suspicion of insect infestation, I feel that an oral medication versus a topical would be more beneficial. This patient states that his entire body is itchy, I feel that a topical would be inappropriate. Will treat with visceral pain 5 as needed. Patient is afebrile, nontoxic, lung sounds clear, no stridor. No rashes wounds or lesions noted to the skin. Gait is well balanced well coordinated. Cranial nerves 2-12 intact. Differentials include but not limited to folliculitis, dermatitis supervisor wet pour utilized for all corresponded. Google translate utilize her discharge instructions. Patient verbalized understanding of and agrees plan of care discharge home. Verbalized understanding of signs symptoms indicating need for emergent intervention Medications: New hydroxyzine pamoate (Vistaril) 25 mg PO TID PRN 90 caps 1RF itching Patient Instructions: Lo evaluaron por malorie sensaci?n de picaz?n en la piel. Cuney podr?a estar relacionado con el afeitado del vello corporal. No ramón erupciones o lesiones consistentes con picaduras de insectos. Para la picaz?n, tome Vistaril 25 mg seg?n las indicaciones. Seguimiento con Dermatolog?a seg?n lo programado. Karen por elegir esta atenci?n de urgencia para paul evaluaci?n. Por favor, sydnee un seguimiento con el m?dico de atenci?n primaria seg?n sea necesario. Regrese al departamento de emergencias por cualquier s?ntoma nuevo, preocupante o que empeore. You were evaluated for a itching sensation to your skin. This could be related to your shaving of body hair. I do not note any rashes or lesions consistent with insect bites. For the itching, take Vistaril 25 mg as directed. Follow-up with Dermatology as scheduled. Thank you for choosing this urgent care for evaluation. Please follow-up with primary care physician as needed. Return to the emergency department for any new, concerning, or worsening symptoms. Coding Level of Care Code Est Pt Level 3 (89171) Diagnoses Itching L29.9
[2023-04-08 11:52] VITALS: BP 130/74; PULSE 69; TEMP 35.8; O2SAT 98; BMI 30.7
== END 2023-04-08 12:10 | disposition home or self-care (01) ==
PROVIDERS: PCP Internal Medicine; Visit Provider Nurse Practitioner Family
DX: L29.9 Pruritus, unspecified (principal)
CPT/HCPCS: 99213

== ENCOUNTER 2023-04-14 09:09 | Outpatient (REF) | payer OTHER, SELFPAY ==
--- NOTE | ~2023-04-14 | US_ITS ---
EXAMINATION: US RETROPERITONEAL LIMITED (RENAL ONLY) CLINICAL INFORMATION: Crossing vessel and stricture of ureter without hydronephrosis. COMPARISON: CT abdomen and pelvis 05/21/2022. Nuclear medicine renal study 03/07/2022. CT urogram 11/06/2021. MRI abdomen 02/08/2021. TECHNIQUE: Real-time imaging of the kidneys. FINDINGS: RIGHT KIDNEY: 12.1 x 5.7 x 5.8 cm (SAG x AP x TRV). The kidney is normal in size, contour, and echogenicity. Renal cortical thickness is normal. No calculi or focal parenchymal lesions. No hydronephrosis. The renal vein is patent. LEFT KIDNEY: 12.6 x 5.9 x 4.6 cm (SAG x AP x TRV). The kidney is normal in size, contour, and echogenicity. Renal cortical thickness is normal. No calculi or focal parenchymal lesions. No hydronephrosis. The renal vein is patent. US/US renal BI IMPRESSION: Normal renal ultrasound.
== END 2023-04-14 09:10 | disposition home or self-care (01) ==
LOC: HO.US 09:09
PROVIDERS: PCP Internal Medicine; Visit Provider Urology
DX: N13.5 Crossing vessel and stricture of ureter without hydronephrosis (principal)
CPT/HCPCS: 76775

== ENCOUNTER 2023-05-07 09:03 | Outpatient (REF) | payer OTHER, SELFPAY | END 2023-05-07 09:04 | disposition home or self-care (01) | LOC: HO.MDS 09:03 | PROVIDERS: Visit Provider Internal Medicine Gastroenterology | DX: K50.00 Crohn's disease of small intestine without complications (principal) | CPT/HCPCS: 96365; 96366; J1745 ==

== ENCOUNTER 2023-05-15 09:24 | Outpatient (AMB) | payer OTHER, SELFPAY ==
--- NOTE | 2023-05-15 09:29 | MHC.OFFVIS ---
Intake Intake Visit Reasons: 1Y US/Creatinine(No Creatinine) Allergies Penicillins [PENICILLINS] Allergy (Severe, Verified 05/15/23 09:31) HIVES HPI HPI Comments History of Present Illness Details Matt is a pleasant male. He is a patient of Dr. Narayan. He seen for the following urologic conditions - bilateral mild hydronephrosis - right inguinal disruption 04/23 renal ultrasound no evidence of hydronephrosis Appears to have resolved with management of Crohn's disease 10/23 CT urogram with mild bilateral hydroureteronephrosis down to the level of the bladder Treatment warranted if creatinine starts to climb Creatinine 0.9 Hydronephrosis Recent diagnosis of Crohn's disease Prior inflammation which is now managed with Remicade Recent CT imaging suggesting mild bilateral hydronephrosis May be result of mesenteric inflammation and deviation of ureteric anatomy Imaging - 10/23 CT urogram bilateral hydroureteronephrosis down to the bladder level - 04/22 Lasix urogram no evidence of obstruction bilateral, mild hydronephrosis Current creatinine 0.85, 02/21 0.9 Inguinal disruption Pain present medial aspect right inguinal canal 03/10 Prior history of physical exertion Chronic in nature Referred to PT since unable to take anti-inflammatories secondary to Crohn's [facility] Medical History Retroperitoneal fibrosis Crohn's disease involving terminal ileum Crohns disease of small intestine Surgical History History of esophagogastroduodenoscopy (EGD) Hx of colonoscopy Social History Patient Tobacco Use Status: Never used Tobacco service: No Current occupational status: employed Review of Systems Const Denies chills and Denies fever(s) Card Reports no additional complaints and Denies syncope Resp Denies cough GI Denies abdominal pain and Denies heartburn Reports as per HPI and Denies change in libido Neuro Denies syncope Psych Denies change in libido Endo Denies change in libido Physical Exam Const General: cooperative, healthy appearing, comfortable and no acute distress Orientation/consciousness: patient oriented x3 HEENT Face and sinus: Yes normal facial exam Mouth: moist mucous membranes Neck Neck: Yes normal visual inspection, Yes full ROM and Yes trachea midline Chest Chest palpation & inspection: normal inspection of the chest Resp Effort & Inspection: normal respiratory effort, able to speak in complete sentences and no respiratory distress GI Inspection: Yes normal to inspection Back/Spine/Pelvis Cervical Spine: normal cervical lordosis Thoracic/Lumbar Spine: thoracic and lumbar spine normal to inspection Skin General skin exam: no rashes or lesions noted Neuro General: patient oriented x3, gait normal, tone normal and moves all extremities Extrem General: Yes normal to inspection and Yes capillary refill normal Assessment & Plan Assessment & Plan (1) Hydronephrosis: Code(s): N13.30 - Unspecified hydronephrosis Plan Resolved hydronephrosis Patient Instructions: Imaging studies, laboratory and physical exam results were discussed and reviewed in detail. No major barriers to patient understanding were identified. An opportunity to ask questions regarding the treatment plan was provided. All questions were answered. The patient expressed understanding and agreement with the above treatment plan. The patient is aware they should contact our office by phone for worsening of their current condition or the appearance of new urologic symptoms. Compliance is encouraged with any medications and followup testing that is ordered. It is a privilege to participate in the urologic care of your patient. If you have any questions or concerns regarding treatment for the above conditions, or other urologic issues, please do not hesitate to contact me. The office telephone contact is [phone]. This note is constructed using voice recognition software. While every effort has been made to ensure accuracy facility sales and admin errors may have been included. Yours sincerely, Dr Julius Albrecht MD, [facility] - Urology Providers of Expert, Compassionate Care for the Genitourinary System Coding Level of Care Code Est Pt Level 4 (18691) Diagnoses Hydronephrosis N13.30
== END 2023-05-15 10:01 | disposition home or self-care (01) ==
PROVIDERS: PCP Internal Medicine; Visit Provider Urology
DX: N13.30 Unspecified hydronephrosis (principal)
CPT/HCPCS: 99213

== ENCOUNTER → 2023-05-15 09:24 | Outpatient (BNVA) | payer OTHER, SELFPAY | PROVIDERS: Visit Provider Urology ==

== ENCOUNTER 2023-06-16 09:20 | Outpatient (AMB) | payer OTHER, SELFPAY ==
--- NOTE | 2023-06-16 09:25 | MHC.OFFVIS ---
Intake Vital Signs 06/16/23 09:27 Height 5 ft 7 in Weight 200 lb 9.93 oz BMI 31.4 BP 141/89 H Blood Pressure Location Lt brachial Position Sitting Pulse 65 Intake Visit Reasons: 4 month follow up Intake Note: Matt presents in the office as a 4 month follow up. CC: HE states that he is not having any concerns today. Allergies Penicillins [PENICILLINS] Allergy (Severe, Verified 06/16/23 09:27) HIVES HPI 4 month follow up HPI Details 37-year-old male w/ hx of ileoc colonic crohns disease on remicade and imuran. and hydronephrosis who I am seeing for f/u RECAP: Pt of Dr wu The patient had presented at [facility] 05/23/20 with abdominal pain.? Eval with significant Crohn's disease involving 20 cm of the distal ileum and area of the cecum and right colon.? His initial Remicade infusion was 06/01/2020.? He is on imuran 100 mg He feels well on the remicade but feels tied down by the treatment and having to come in for it He had c diff and treated with vancomycin Admission 05/23 for enteritis, suspected to be infectious after eating at [employer] Other DATA: Endoscopy_ colon- 05/2020-- bx wit focal colitis cecum and ileitis IMAGING: MRE: 07/2020--focal inflammatory changes involving the terminal ileum, approximately 5 cm in length. There is moderate wall thickening approximately 7 mm, low signal on T2, with hyperenhancement following gadolinium contrast. There is minor mesenteric inflammation adjacent to the ileocecal valve. The findings represent marked improvement when compared with the CT 05/23/2020 which showed 20 cm length of ileal involvement along with inflammatory changes in the ascending colon, mesenteric stranding, and mild ascites. MRE: 01/2021-- marked improvement with mild enhancement 3 cm TI Cte: 08/2021- mild b/l hydronephrosis and ureteral dilation, no stone seen -small umbilical hernia, ?mild thickening and enhancement TI CT 05/23- enteritis and partial SBO, mesenteric stranding INTERIM: He is feeling well, new job which is less stressful and which helps him v occ diarrhea during the week no nausea or vomiting no constipation no blood in stool no fever no joint pain or swelling no skin rash he denies acid reflux no urine symptoms taking PPI prn EXAM: GENERAL: The patient is well developed and nontoxic. VITAL SIGNS:see workflow HEENT: Nonicteric sclerae, PERRLA, EOMI. Oropharynx clear. Moist mucous membranes. Conjunctivae appear well perfused. No thyroid mass. CHEST: Chest wall is nontender. HEART: Regular rate and rhythm without murmurs. LUNGS: Clear to auscultation bilaterally. ABDOMEN: Soft, positive bowel sounds, nontender, no organomegaly.no flank tenderness SKIN:, no excessive bruising, petechiae, or purpura. no moles or raised lesions NEUROLOGIC: Cranial nerves II-XII intact without motor/sensory deficit. Assessment and plan (1) Crohns disease of small and large intestine---in remission on remicade/imuran with good effect--had infectius enteritis, clincially doing well but some diarrheal episodes occasionally 2) hydronephrosis, following urology ? ? PLAN: 1/ cont with remicade and imuran for at least 1-2 yr to prevent antibody development 2/ non smoker, reviewed diet and lifestyle again today 3/ recheck labs incl fecal lactoferrin 4/ multivitamin also can take probiotic 5/ Mr e to reassess disease activity--I ordered this last time, still not done 6/will need skin exams yearly due to imuran--skin looks good today [facility] Medical History Retroperitoneal fibrosis Crohn's disease involving terminal ileum Crohns disease of small intestine Surgical History History of esophagogastroduodenoscopy (EGD) Hx of colonoscopy Social History Patient Tobacco Use Status: Never used Tobacco service: No Current occupational status: employed Physical Exam Vital Signs: Last Vital Signs Pulse 65 06/16/23 09:27 BP 141/89 H 06/16/23 09:27 BMI result Body Mass Index 31.4 Assessment & Plan Assessment & Plan (1) Crohn's disease involving terminal ileum: Code(s): K50.00 - Crohn's disease of small intestine without complications Orders: Orders Comprehensive Met. Panel Today K50.00 - Crohn's disease of small intestine without complications, K75.81 - Nonalcoholic steatohepatitis (PRIEST) C Reactive Protein Today K50.00 - Crohn's disease of small intestine without complications Vitamin B1 Today K50.00 - Crohn's disease of small intestine without complications Vitamin C Today K50.00 - Crohn's disease of small intestine without complications Vitamin E Today K50.00 - Crohn's disease of small intestine without complications Ferritin Today K50.00 - Crohn's disease of small intestine without complications Vitamin B5 (Pantothenic Acid) Today K50.00 - Crohn's disease of small intestine without complications Vitamin B3 (Niacin) Today K50.00 - Crohn's disease of small intestine without complications Magnesium Today K50.00 - Crohn's disease of small intestine without complications Vitamin D 25-OH Total Today K50.00 - Crohn's disease of small intestine without complications Lactoferrin, Fecal, Quant. Today K50.00 - Crohn's disease of small intestine without complications, K51.50 - Left sided colitis without complications Complete Blood Count Auto Diff Today K50.00 - Crohn's disease of small intestine without complications Vitamin A Today K50.00 - Crohn's disease of small intestine without complications Vitamin B12 and Folate Today K50.00 - Crohn's disease of small intestine without complications Zinc Today K50.00 - Crohn's disease of small intestine without complications Vitamin B6 Today K50.00 - Crohn's disease of small intestine without complications Coding Level of Care Code Est Pt Level 4 (64208) Diagnoses Crohn's disease involving terminal ileum K50.00
[2023-06-16 09:27] VITALS: BP 141/89; PULSE 65; BMI 31.4
== END 2023-06-16 09:47 | disposition home or self-care (01) ==
PROVIDERS: PCP Internal Medicine; Visit Provider Internal Medicine Gastroenterology
DX: K50.00 Crohn's disease of small intestine without complications (principal)
CPT/HCPCS: 99214

== ENCOUNTER 2023-06-16 09:20 | Outpatient (REF) | payer OTHER, SELFPAY ==
[2023-06-16 10:42] LABS: MANUAL DIFF FLAG NO
[2023-06-16 10:54] LABS: Basophils Absolute Auto 0.1 X10*3/uL (0.0-0.2); Basophils Percent Auto 0.8 % (0-2); Eosinophils Absolute Auto 0.3 X10*3/uL (0.0-0.4); Eosinophils Percent Auto 4.7 % (0-4); Hematocrit 39.6 % (42.0-52.0); Hemoglobin 13.2 g/dl (14.0-18.0); Imm Gran Abs Auto 0.01 X10*3/uL (0.00-0.03); Imm Gran Pct Auto 0.2 % (0.0-0.4); Lymphocytes Absolute Auto 1.4 X10*3/uL (1.2-4.9); Lymphocytes Percent Auto 22.9 % (20-40); Mean Corpuscular HGB Conc 33.3 g/dl (31.0-36.0); Mean Corpuscular Hemoglobin 30.5 pg (27.0-33.0); Mean Corpuscular Volume 91.5 fL (80.0-98.0); Mean Platelet Volume 11.6 fL (9.4-12.4); Monocytes Absolute Auto 0.6 X10*3/uL (0.1-1.2); Monocytes Percent Auto 10.1 % (2-11); Neutrophils Absolute Auto 3.7 x10*3/uL (2.0-8.3); Neutrophils Percent Auto 61.3 % (45-73); Platelet Count 209 X10*3/uL (160-400); Red Blood Count 4.33 X10*6/uL (4.60-5.80); Red Cell Distribution Width 13.9 % (11.0-16.0); White Blood Count 6.1 X10*3/uL (4.8-10.8)
[2023-06-16 12:36] LABS: Alanine Aminotransferase 14 U/L (0-40); Alkaline Phosphatase 69 U/L (39-117); Anion Gap 12 (12-20); Aspartate Amino Transferase 22 U/L (5-37); Bilirubin Total 0.4 mg/dL (0.0-1.0); Blood Urea Nitrogen 18 mg/dL (9-16); C Reactive Protein < 0.10 mg/dL (< or = 0.50); Calcium 9.1 mg/dL (8.4-10.2); Carbon Dioxide 27 mmol/L (22-29); Chloride 105 mmol/L (96-108); Estimated Glomerular Filt Rate > 60; Glucose Random 88 mg/dL (60-115); Potassium 3.8 mmol/L (3.3-5.1); Sodium 140 mmol/L (135-145); Total Protein 6.7 g/dL (6.5-8.0)
[2023-06-16 12:49] LABS: Folate 11.2 ng/mL (> or = 4.0); Vitamin B12 501 pg/mL (200-900)
[2023-06-16 13:00] LABS: Ferritin 30 ng/mL (20-250); Vitamin D 25-OH Total 47.4 ng/mL (>30)
[2023-06-18 15:19] LABS: Zinc 70 mcg/dL (60-130)
[2023-06-19 20:24] LABS: Alpha-Tocopherol 11.5 mg/L (5.7-19.9); Beta-Gamma Tocopherol 1.4 mg/L (<=4.3)
[2023-06-20 04:58] LABS: Vitamin A 60 mcg/dL (38-98)
[2023-06-20 13:13] LABS: Vitamin B6 11.1 ng/mL (2.1-21.7)
[2023-06-20 19:28] LABS: Vitamin B5 (Pantothenic Acid) 45 ng/mL (<275)
[2023-06-20 22:53] LABS: Lactoferrin, Fecal, Quant. 13.57 mcg/mL (<7.25)
[2023-06-21 10:28] LABS: Vitamin B1 16 nmol/L (8-30)
[2023-06-21 20:50] LABS: Nicotinamide 26 ng/mL; Vit B3 - Nicotinic Acid <20 ng/mL
== END 2023-06-16 09:21 | disposition home or self-care (01) ==
LOC: HO.LAB 09:20
PROVIDERS: PCP Internal Medicine; Visit Provider Internal Medicine Gastroenterology
DX: K75.81 Nonalcoholic steatohepatitis (NASH) (principal); K51.50 Left sided colitis without complications
CPT/HCPCS: 36415; 80053; 82180; 82306; 82607; 82728; 82746; 83631; 83735; 84207; 84425; 84446; 84590; 84591; 84630; 85025; 86140; 99212

== ENCOUNTER 2023-07-02 09:16 | Outpatient (REF) | payer OTHER, SELFPAY ==
[2023-07-09 17:13] LABS: Anti-Infliximab Antibody <10 AU (<10); Infliximab Drug Level 6.6 mcg/mL
== END 2023-07-02 09:17 | disposition home or self-care (01) ==
LOC: HO.MDS 09:16
PROVIDERS: Visit Provider Internal Medicine Gastroenterology
DX: K50.00 Crohn's disease of small intestine without complications (principal)
CPT/HCPCS: 36415; 80230; 82542; 83520; 96365; 96366; J1745

== ENCOUNTER 2023-07-23 09:02 | Outpatient (REF) | payer OTHER, SELFPAY ==
--- NOTE | ~2023-07-23 | MR_ITS ---
EXAMINATION: MR ABDOMEN AND PELVIS WITHOUT AND WITH CONTRAST CLINICAL INFORMATION: Crohn's disease without complications COMPARISON: CT abdomen and pelvis 05/21/2022 TECHNIQUE: MRI of the abdomen and pelvis before and after the administration of oral contrast and after the IV administration of 10 mL of Gadavist was obtained using routine sequences. FINDINGS: LUNG BASES: Unremarkable. ABDOMINAL AND PELVIC WALL: Small fat-containing umbilical hernia. LIVER AND BILIARY TREE: Unremarkable. GALLBLADDER: Unremarkable. PANCREAS: Unremarkable. SPLEEN: Unremarkable. ADRENAL GLANDS: Unremarkable. KIDNEYS AND URETERS: Mild right hydroureteronephrosis new from prior and new moderate left hydroureter though without ana hydronephrosis. GASTROINTESTINAL TRACT: The stomach is underdistended somewhat limiting evaluation. Given limitations no gastric wall thickening, hyperenhancement or ulceration. Mild short segment of stratified mural hyperenhancement involving the terminal ileum without associated wall thickening which may reflect mild active inflammation, improved from prior. No dilation of bowel to suggest stricture. No evidence of fistula. No perianal inflammatory changes appreciated within the limitations of the exam. No pericolonic abscess. Colonic diverticulosis without evidence of diverticulitis. No large bowel thickening or hyperenhancement. VASCULAR: Unremarkable. LYMPH NODES/PERITONEUM: No lymphadenopathy. FREE FLUID: None. BLADDER: Unremarkable. PELVIC VISCERA: Unremarkable. OSSEOUS STRUCTURES: Unremarkable. MR/MR abdomen wo/w con IMPRESSION: Mild short segment of stratified mural hyperenhancement involving the terminal ileum without associated wall thickening which may reflect mild active inflammation, improved from prior. No dilation of bowel to suggest stricture. No evidence of fistula.
--- NOTE | ~2023-07-23 | MR_ITS ---
EXAMINATION: MR ABDOMEN AND PELVIS WITHOUT AND WITH CONTRAST CLINICAL INFORMATION: Crohn's disease without complications COMPARISON: CT abdomen and pelvis 05/21/2022 TECHNIQUE: MRI of the abdomen and pelvis before and after the administration of oral contrast and after the IV administration of 10 mL of Gadavist was obtained using routine sequences. FINDINGS: LUNG BASES: Unremarkable. ABDOMINAL AND PELVIC WALL: Small fat-containing umbilical hernia. LIVER AND BILIARY TREE: Unremarkable. GALLBLADDER: Unremarkable. PANCREAS: Unremarkable. SPLEEN: Unremarkable. ADRENAL GLANDS: Unremarkable. KIDNEYS AND URETERS: Mild right hydroureteronephrosis new from prior and new moderate left hydroureter though without ana hydronephrosis. GASTROINTESTINAL TRACT: The stomach is underdistended somewhat limiting evaluation. Given limitations no gastric wall thickening, hyperenhancement or ulceration. Mild short segment of stratified mural hyperenhancement involving the terminal ileum without associated wall thickening which may reflect mild active inflammation, improved from prior. No dilation of bowel to suggest stricture. No evidence of fistula. No perianal inflammatory changes appreciated within the limitations of the exam. No pericolonic abscess. Colonic diverticulosis without evidence of diverticulitis. No large bowel thickening or hyperenhancement. VASCULAR: Unremarkable. LYMPH NODES/PERITONEUM: No lymphadenopathy. FREE FLUID: None. BLADDER: Unremarkable. PELVIC VISCERA: Unremarkable. OSSEOUS STRUCTURES: Unremarkable. MR/MR pelvis wo/w con IMPRESSION: Mild short segment of stratified mural hyperenhancement involving the terminal ileum without associated wall thickening which may reflect mild active inflammation, improved from prior. No dilation of bowel to suggest stricture. No evidence of fistula.
[2023-07-23] MEDS: gadobutroL 10 ML VIAL IVPUSH (11:23)
== END 2023-07-23 09:03 | disposition home or self-care (01) ==
LOC: HO.MRI 09:02
PROVIDERS: PCP Internal Medicine; Visit Provider Internal Medicine Gastroenterology
DX: K50.00 Crohn's disease of small intestine without complications (principal); N13.30 Unspecified hydronephrosis
CPT/HCPCS: 72197; 74183; A9585

== ENCOUNTER 2023-09-03 09:20 | Outpatient (REF) | payer OTHER, SELFPAY | END 2023-09-03 09:21 | disposition home or self-care (01) | LOC: HO.MDS 09:20 | PROVIDERS: Visit Provider Internal Medicine Gastroenterology | DX: K50.00 Crohn's disease of small intestine without complications (principal) | CPT/HCPCS: 96365; 96366; J1745 ==

== ENCOUNTER 2023-09-24 10:06 | Outpatient (AMB) | payer OTHER, SELFPAY ==
[2023-09-24 10:14] VITALS: BP 120/90; PULSE 66; TEMP 36.2; O2SAT 96; BMI 32.6
--- NOTE | 2023-09-24 10:14 | MHC.OFFWIV ---
Intake Vital Signs 09/24/23 10:14 Height 5 ft 7 in Weight 208 lb BMI 32.6 BP 120/90 H Blood Pressure Location Lt brachial Position Sitting Pulse 66 Pulse Source Pulse Oximeter Temp 97.1 F Temp Source Temporal Artery Scan Pulse Oximetry (%) 96 Oxygen Delivery Method Room Air Intake Visit Reasons: EP Chest Tightness, Difficulty breathing, Headache Intake Note: pt is here today for chest tightness difficulty breathing headache started 2 months ago Patient Tobacco Use Status: Never used Tobacco Allergies Penicillins [PENICILLINS] Allergy (Severe, Verified 09/24/23 10:15) HIVES Do you need a note to return to daycare/school/sports/work: No HPI HPI Comments History of Present Illness Details Here today w chest pain and TINAJERO that started 2 months ago Was running QD but now only running a few days a week and slower as he has TINAJERO and chest pain. Located in the middle of his chest. Short lived. Goes away on own. lives on 3rd floor, when climbing stairs, feels he cannot breath and has pain in his chest denies asthma, known cardiac condition, uses of PED. Also wants his liver checked as he was taking meds for chrons in the past and worries this effected his liver. Also reports halitosis after every weekned. Active w/ GI. Reports in between PCPs. COUNTS INCLUDE 234 BEDS AT THE [facility] Medical History Retroperitoneal fibrosis Crohn's disease involving terminal ileum Crohns disease of small intestine Surgical History History of esophagogastroduodenoscopy (EGD) Hx of colonoscopy Social History Patient Tobacco Use Status: Never used Tobacco service: No Current occupational status: employed Review of Systems Const All systems reviewed & are unremarkable except as noted in HPI and below Physical Exam Vital Signs: Last Vital Signs Temp 97.1 F 09/24/23 10:14 Pulse 66 09/24/23 10:14 BP 120/90 H 09/24/23 10:14 Pulse Ox 96 09/24/23 10:14 Oxygen Delivery Method Room Air 09/24/23 10:14 BMI result Body Mass Index 32.6 Const Other: AWAKE ALERT NAD , FIT APPEARING PAIN W PALPATION OVER ANTERIOR CHEST - MIDLINE. LS CTAB RRR. + SYSTOLIC MURMUR 1/6 NO EDEMA BLE Office Procedures EKG [id number], Complete Assessment & Plan Assessment & Plan (1) Exertional chest pain: Code(s): R07.9 - Chest pain, unspecified Plan: EKG done today and NSR Advised he needs to f/u with PCP for addl cards workup, as this cannot be completed in UC setting. He states he is est care w/ [facility] and will f/u with them caution exercise as this precipitates his sx. Total time spent caring for the patient today was 62 minutes. This includes time spent before the visit reviewing the chart, time spent during the visit, and time spent after the visit on documentation (2) Halitosis: Code(s): R19.6 - Halitosis Plan: advised to fu with GI for further work up, (3) Crohn's disease involving terminal ileum: Code(s): K50.00 - Crohn's disease of small intestine without complications Plan: advised to fu with GI for further work up, Orders: Orders AMB EKG-In Office Today R07.9 - Chest pain, unspecified Patient Instructions: Follow up w/ primary care Ask about a stress test and echocardiogram Edu on reasons to seek addl care Coding Level of Care Code Est Pt Level 5 (86361) Diagnoses Exertional chest pain R07.9 Halitosis R19.6 Crohn's disease involving terminal ileum K50.00 CPT Codes EKG - CPT: 60289-[id number], Complete ([id number])
== END 2023-09-24 11:44 | disposition home or self-care (01) ==
PROVIDERS: PCP Internal Medicine; Visit Provider Nurse Practitioner Family
DX: R07.9 Chest pain, unspecified (principal); R19.6 Halitosis; K50.00 Crohn's disease of small intestine without complications
CPT/HCPCS: 93000; 99215

== ENCOUNTER 2023-10-06 09:35 | Outpatient (REF) | payer OTHER, SELFPAY ==
[2023-10-06 10:49] LABS: MANUAL DIFF FLAG NO
[2023-10-06 11:04] LABS: Basophils Absolute Auto 0.1 X10*3/uL (0.0-0.2); Basophils Percent Auto 0.9 % (0-2); Eosinophils Absolute Auto 0.2 X10*3/uL (0.0-0.4); Eosinophils Percent Auto 3.5 % (0-4); Hematocrit 40.6 % (42.0-52.0); Hemoglobin 13.4 g/dl (14.0-18.0); Imm Gran Abs Auto 0.02 X10*3/uL (0.00-0.03); Imm Gran Pct Auto 0.4 % (0.0-0.4); Lymphocytes Absolute Auto 1.3 X10*3/uL (1.2-4.9); Lymphocytes Percent Auto 22.2 % (20-40); Mean Corpuscular Hemoglobin 30.2 pg (27.0-33.0); Mean Corpuscular Volume 91.4 fL (80.0-98.0); Mean Platelet Volume 11.3 fL (9.4-12.4); Monocytes Absolute Auto 0.6 X10*3/uL (0.1-1.2); Monocytes Percent Auto 10.6 % (2-11); Neutrophils Absolute Auto 3.6 x10*3/uL (2.0-8.3); Neutrophils Percent Auto 62.4 % (45-73); Platelet Count 202 X10*3/uL (160-400); Red Blood Count 4.44 X10*6/uL (4.60-5.80); Red Cell Distribution Width 14.6 % (11.0-16.0); White Blood Count 5.7 X10*3/uL (4.8-10.8)
[2023-10-06 11:11] LABS: Estimated Average Glucose 105 mg/dL; Hemoglobin A1C 118.8604 umol/L; Hemoglobin A1c % 5.3 % (<6.0)
[2023-10-06 11:33] LABS: Alanine Aminotransferase 18 U/L (0-40); Alkaline Phosphatase 74 U/L (39-117); Anion Gap 9 (12-20); Aspartate Amino Transferase 26 U/L (5-37); Bilirubin Total 0.5 mg/dL (0.0-1.0); Blood Urea Nitrogen 19 mg/dL (9-16); C Reactive Protein < 0.04 mg/dL (< or = 0.50); Calcium 9.3 mg/dL (8.4-10.2); Carbon Dioxide 31 mmol/L (22-29); Chloride 103 mmol/L (96-108); Cholesterol 169 mg/dL (<200); Estimated Glomerular Filt Rate > 60; Glucose Random 86 mg/dL (60-115); HDL Cholesterol 76 mg/dL (>40); LDL Cholesterol Calculated 68 mg/dL (<100); Potassium 4.1 mmol/L (3.3-5.1); Sodium 139 mmol/L (135-145); Total Protein 6.7 g/dL (6.5-8.0); Triglycerides 128 mg/dL (<150)
[2023-10-06 12:12] LABS: Reflex LDLD? No
[2023-10-07 12:54] LABS: LDL Cholesterol Direct 75 mg/dL (<100)
[2023-10-09 21:49] LABS: Apolipoprotein B 66 mg/dL (<90)
[2023-10-10 08:09] LABS: Lipoprotein Asso Phospholip A2 75 (<124)
== END 2023-10-06 09:36 | disposition home or self-care (01) ==
LOC: HO.LAB 09:35
PROVIDERS: PCP Internal Medicine; Visit Provider Internal Medicine Gastroenterology
DX: K75.81 Nonalcoholic steatohepatitis (NASH) (principal); K50.80 Crohn's disease of both small and large intestine without complications; R07.9 Chest pain, unspecified; Z79.899 Other long term (current) drug therapy
CPT/HCPCS: 36415; 80053; 80061; 82172; 83036; 83698; 83721; 85025; 86140; 99212

== ENCOUNTER 2023-10-06 09:35 | Outpatient (AMB) | payer OTHER, SELFPAY ==
--- NOTE | 2023-10-06 09:43 | MHC.OFFVIS ---
Intake Vital Signs 10/06/23 09:45 Height 5 ft 7 in Weight 205 lb BMI 32.1 BP 167/104 H Blood Pressure Location Lt brachial Position Sitting Pulse 67 Intake Visit Reasons: 4 month follow up Intake Note: Patient follow up Patient cc: between diarrhea and constipation, denies any other GI issues. Patient went to the walking center at [place] due chest pain and SOB after exercises and have done an EKG, also he is been with HTN and today his BP was 167/104. 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 and hydronephrosis who I am seeing for f/u RECAP: Pt of Dr wu The patient had presented at [facility] 05/23/20 with abdominal pain. Eval with significant Crohn's disease involving 20 cm of the distal ileum and area of the cecum and right colon. His initial Remicade infusion was 06/01/2020. He is on imuran 100 mg He feels well on the remicade but feels tied down by the treatment and having to come in for it He had c diff and treated with vancomycin Admission 05/23 for enteritis, suspected to be infectious after eating at [facility] Other DATA: Endoscopy_ colon- 05/2020-- bx wit focal colitis cecum and ileitis IMAGING: MRE: 07/2020--focal inflammatory changes involving the terminal ileum, approximately 5 cm in length. There is moderate wall thickening approximately 7 mm, low signal on T2, with hyperenhancement following gadolinium contrast. There is minor mesenteric inflammation adjacent to the ileocecal valve. The findings represent marked improvement when compared with the CT 05/23/2020 which showed 20 cm length of ileal involvement along with inflammatory changes in the ascending colon, mesenteric stranding, and mild ascites. MRE: 01/2021-- marked improvement with mild enhancement 3 cm TI Cte: 08/2021- mild b/l hydronephrosis and ureteral dilation, no stone seen -small umbilical hernia, ?mild thickening and enhancement TI CT 05/23- enteritis and partial SBO, mesenteric stranding MRe: 07/2023: mild inflammation, at TI infliximab level was low so dose increased to 10mg/kg INTERIM: He has pain in chest when running --he had ecg urgent care and was told it was good a stress test was advised pos FH of [place] in mother aged 50 he has been having high BP for last several months, checking at home, v occ diarrhea during the week no nausea or vomiting no constipation no blood in stool no fever no joint pain or swelling no skin rash he denies acid reflux no urine symptoms EXAM: GENERAL: The patient is well developed and nontoxic. VITAL SIGNS:see workflow HEENT: Nonicteric sclerae, PERRLA, EOMI. Oropharynx clear. Moist mucous membranes. Conjunctivae appear well perfused. No thyroid mass. CHEST: Chest wall is nontender. HEART: Regular rate and rhythm without murmurs. LUNGS: Clear to auscultation bilaterally. ABDOMEN: Soft, positive bowel sounds, nontender, no organomegaly.no flank tenderness SKIN:, no excessive bruising, petechiae, or purpura. no moles or raised lesions NEUROLOGIC: Cranial nerves II-XII intact without motor/sensory deficit. Assessment and plan (1) Crohns disease of small and large intestine---in remission on remicade/imuran with good effect but imaging with mild inflammation, remicade increased to 10 mg/kg 2) exertional chest pain and elevated BP --pos FH of CAD--seems like stable angina PLAN: 1/ cont with remicade and imuran for at least 1-2 yr to prevent antibody development 2/ non smoker, reviewed diet and lifestyle again today renetta low salt diet 3/ refer cardiology and for urgent stress test --meantime commence thaizide diuretic and nitrotab prn, hold on aspirin for the moment, check a1c and lipids--bring back to office to recheck BP in one week [facility] Medical History Retroperitoneal fibrosis Crohn's disease involving terminal ileum Crohns disease of small intestine Surgical History History of esophagogastroduodenoscopy (EGD) Hx of colonoscopy Social History Patient Tobacco Use Status: Never used Tobacco service: No Current occupational status: employed Physical Exam Vital Signs: Last Vital Signs Pulse 67 10/06/23 09:45 BP 167/104 H 10/06/23 09:45 BMI result Body Mass Index 32.1 Assessment & Plan Assessment & Plan (1) Exertional chest pain: Code(s): R07.9 - Chest pain, unspecified Plan: Assessment and plan (1) Crohns disease of small and large intestine---in remission on remicade/imuran with good effect but imaging with mild inflammation, remicade increased to 10 mg/kg 2) exertional chest pain and elevated BP --pos FH of CAD--seems like stable angina PLAN: 1/ cont with remicade and imuran for at least 1-2 yr to prevent antibody development 2/ non smoker, reviewed diet and lifestyle again today renetta low salt diet 3/ refer cardiology and for urgent stress test --meantime commence thaizide diuretic and nitrotab prn, hold on aspirin for the moment, check a1c and lipids--bring back to office to recheck BP in one week (2) Crohn's disease involving terminal ileum: Code(s): K50.00 - Crohn's disease of small intestine without complications Plan: Assessment and plan (1) Crohns disease of small and large intestine---in remission on remicade/imuran with good effect but imaging with mild inflammation, remicade increased to 10 mg/kg 2) exertional chest pain and elevated BP --pos FH of CAD--seems like stable angina PLAN: 1/ cont with remicade and imuran for at least 1-2 yr to prevent antibody development 2/ non smoker, reviewed diet and lifestyle again today renetta low salt diet 3/ refer cardiology and for urgent stress test --meantime commence thaizide diuretic and nitrotab prn, hold on aspirin for the moment, check a1c and lipids--bring back to office to recheck BP in one week Orders: Orders Hemoglobin A1c Today K50.00 - Crohn's disease of small intestine without complications, R07.9 - Chest pain, unspecified CA stress test Today R07.9 - Chest pain, unspecified Complete Blood Count Auto Diff Today K50.00 - Crohn's disease of small intestine without complications, R07.9 - Chest pain, unspecified Comprehensive Met. Panel Today K50.00 - Crohn's disease of small intestine without complications, K75.81 - Nonalcoholic steatohepatitis (PRIEST), R07.9 - Chest pain, unspecified C Reactive Protein Today K50.00 - Crohn's disease of small intestine without complications, R07.9 - Chest pain, unspecified Lipid Panel with Reflex Today K50.00 - Crohn's disease of small intestine without complications, R07.9 - Chest pain, unspecified Lipoprotein Asso Phospholip A2 Today K50.00 - Crohn's disease of small intestine without complications, R07.9 - Chest pain, unspecified Apolipoprotein B Today K50.00 - Crohn's disease of small intestine without complications, R07.9 - Chest pain, unspecified LDL Cholesterol Direct Today K50.00 - Crohn's disease of small intestine without complications, R07.9 - Chest pain, unspecified Referrals Cardiology Referral K50.00 - Crohn's disease of small intestine without complications, R07.9 - Chest pain, unspecified Medications: New nitroglycerin do not exceed 3 doses per episode 0.4 mg sublingual Q5M PRN 14 tabs 0RF chest pain chlorthalidone 25 mg PO DAILY 30 tabs 2RF Coding Level of Care Code Est Pt Level 4 (61137) Diagnoses Exertional chest pain R07.9 Crohn's disease involving terminal ileum K50.00
[2023-10-06 09:45] VITALS: BP 167/104; PULSE 67; BMI 32.1
== END 2023-10-06 10:19 | disposition home or self-care (01) ==
PROVIDERS: PCP Internal Medicine; Visit Provider Internal Medicine Gastroenterology
DX: R07.9 Chest pain, unspecified (principal); K50.00 Crohn's disease of small intestine without complications
CPT/HCPCS: 99214

== ENCOUNTER → 2023-10-13 09:08 | Outpatient (REF) | payer OTHER, SELFPAY ==
--- NOTE | 2023-10-13 09:16 | CA_ITS ---
Acquisition Time: 2023-10-13 09:40:47 Total Exercise Time: 00:08:37 Test Indications: Dyspnea CP Medications: Protocol: LIBORIO Max HR: 136 BPM 74% of Pred: 182 BPM Max BP: 182/090 mmHG Max Work Load: 10.1 METS Exercise stress test exercise 8 nmin 37 sec of Liborio protocol achieving 73% MPHR, with baseline 2/10 chest pain, at peak 4/10 chest presure, without shortness of breath, with change of QRS complex at peak to a wide QRS /LBBB, with normotensive response to exercise, with downslop ST lead 3 Report of dfizziness which resolved and chest pressure returned to a 2/10 which is his baseline Test reviewed with Dr. Branch. Referred By: Yaritza Mendoza Overread By: Kimberly Cancino
== END ==
LOC: HO.CARD 09:08
PROVIDERS: PCP Internal Medicine; Visit Provider Internal Medicine Gastroenterology
DX: R07.9 Chest pain, unspecified (principal)
CPT/HCPCS: 93017

== ENCOUNTER → 2023-10-13 11:05 | Outpatient (BNV) | payer OTHER, SELFPAY ==
--- NOTE | 2023-10-13 11:05 | A.OFFVIS_ITS ---
Intake Intake Visit Reasons: Amb Documentation, Seen in stress lab for CP Internal Revenue Agent Required: No Allergies Penicillins [PENICILLINS] Allergy (Severe, Verified 10/13/23 11:02) HIVES Medication List - Last Reconciled 10/13/23 by Mauricio Branch MD azathioprine 100 mg (2 x 50 mg) PO BID chlorthalidone 25 mg PO DAILY infliximab (Remicade) 500 mg IV Q8W 56 days nitroglycerin 0.4 mg sublingual Q5M PRN omeprazole 20 mg PO DAILY PRN zinc acetate (Galzin) 50 mg PO DAILY 90 days HPI HPI Comments History of Present Illness Details 37-year-old gentleman with Crohn's disea se who was referred to stress lab for chest discomfort. I was asked to see him because he developed left bundle-branch block during exercise stress test and was seen in the stress lab. The patient has Crohn's disease and has been noticing some discomfort in his chest which he describes on the left side and central in location. He said that this is random and can happen with activity and exercise. He exercises daily in gym and does not get significant symptoms during exercise though. He said when he returns and goes up 3 flights of stairs to his house he starts feeling some discomfort at that time. He said he was given chlorthalidone and nitroglycerin and since then he is symptoms are somewhat improved and is not getting frequent episodes. When he would get discomfort will last for hours and hours. He came for exercise stress test today. While exercising he developed rate related left bundle-branch block which recovered as the heart rate slowed down. He did not get any significant discomfort in his chest during exercise reportedly. [facility] Medical History Retroperitoneal fibrosis Crohn's disease involving terminal ileum Crohns disease of small intestine Surgical History History of esophagogastroduodenoscopy (EGD) Hx of colonoscopy Social History Patient Tobacco Use Status: Never used Tobacco service: No Current occupational status: employed Physical Exam Heart rate 67 beats per minute, blood pressure 139/97. GENERAL APPEARANCE: in no acute distress, pleasant. NECK: no carotid bruit, no jugular venous distention. SKIN: no suspicious lesions, warm and dry. HEART: no murmurs, regular rate and rhythm. LUNGS: clear to auscultation bilaterally. ABDOMEN: soft, nontender. EXTREMITIES: no edema. PERIPHERAL PULSES: equal. NEUROLOGIC: No gross deficits, AAO X 3 Assessment & Plan Assessment & Plan (1) Exertional chest pain: Code(s): R07.9 - Chest pain, unspecified (2) LBBB (left bundle branch block): Code(s): I44.7 - Left bundle-branch block, unspecified Plan Pleasant 37 year gentleman who is seen in the stress lab today where he presented for exercise stress test. He has been experiencing chest discomfort off and on and clinically his pattern of chest discomfort is not fitting with angina. He gets prolonged episodes of chest discomfort at rest but during exercise does not get any significant symptoms. He developed left bundle-branch block during exercise which I think is rate related left bundle-branch block. He does have risk factors of hypertension and Crohn's disease which can sometimes lead to atherosclerosis due to chronic inflammation. In any case currently stress test is equivocal and he needs further testing. I have discussed with him to do a coronary CTA to further assess for any obstructive coronary disease and he is agreeable. We will arrange a coronary CTA for him. He will see us after the coronary CTA. Thank you for allowing me to participate in the care of your patient. Please feel free to contact me if you have any questions. Coding Level of Care Code New Pt Level 4 (86400) Diagnoses Exertional chest pain R07.9 LBBB (left bundle branch block) I44.7
== END ==
PROVIDERS: PCP Internal Medicine; Visit Provider Internal Medicine Cardiovascular Disease
DX: R07.9 Chest pain, unspecified (principal); I44.7 Left bundle-branch block, unspecified
CPT/HCPCS: 99202; 99204

== ENCOUNTER → 2023-10-13 23:59 | Outpatient (BNV) | payer OTHER, SELFPAY | PROVIDERS: PCP Internal Medicine; Visit Provider Internal Medicine Cardiovascular Disease | DX: R07.9 Chest pain, unspecified (principal) | CPT/HCPCS: 93016; 93018 ==

== ENCOUNTER → 2023-10-21 10:02 | Outpatient (BNVA) | payer OTHER, SELFPAY | PROVIDERS: PCP Internal Medicine; Visit Provider Internal Medicine Gastroenterology ==

== ENCOUNTER 2023-10-29 09:21 | Outpatient (REF) | payer OTHER, SELFPAY ==
[2023-10-29 09:49] VITALS: BP 116/70; PULSE 61; RESP 18; TEMP 36.5; O2SAT 96; BMI 31.3
== END 2023-10-29 09:22 | disposition home or self-care (01) ==
LOC: HO.MDS 09:21
PROVIDERS: Visit Provider Internal Medicine Gastroenterology
DX: K50.00 Crohn's disease of small intestine without complications (principal)
CPT/HCPCS: 96365; 96366; J1745

== ENCOUNTER 2024-01-12 09:18 | Outpatient (AMB) | payer OTHER, SELFPAY ==
--- NOTE | 2024-01-12 09:20 | A.OFFVIS_ITS ---
Vital Signs 01/12/24 09:22 01/12/24 09:40 Height 5 ft 7 in Weight 207 lb 3.752 oz BMI 32.5 BP 144/96 H 132/72 Blood Pressure Location Lt brachial Lt brachial Position Sitting Sitting Pulse 67 57 Intake Visit Reasons: 3 to 4 month follow up Intake Note: Matt presents in the office as a 4 month follow up. CC: he states that he feels good - he states that he is out of galzin and wants to know if he can get a refill on that and omeprazole. Sales And Marketing Specialist Required: No Allergies Penicillins [PENICILLINS] Allergy (Severe, Verified 01/12/24 09:23) HIVES HPI HPI 3 to 4 month follow up: Details: 38-year-old male w/ hx of ileoc colonic crohns disease on remicade and imuran. and hydronephrosis who I am seeing for f/u RECAP: Pt of Dr wu The patient had presented at [facility] 05/23/20 with abdominal pain. Eval with significant Crohn's disease involving 20 cm of the distal ileum and area of the cecum and right colon. His initial Remicade infusion was 06/01/2020. He is on imuran 100 mg He feels well on the remicade but feels tied down by the treatment and having to come in for it He had c diff and treated with vancomycin Admission 05/23 for enteritis, suspected to be infectious after eating at [facility] Other DATA: Endoscopy_ colon- 05/2020-- bx wit focal colitis cecum and ileitis IMAGING: MRE: 07/2020--focal inflammatory changes involving the terminal ileum, approximately 5 cm in length. There is moderate wall thickening approximately 7 mm, low signal on T2, with hyperenhancement following gadolinium contrast. There is minor mesenteric inflammation adjacent to the ileocecal valve. The findings represent marked improvement when compared with the CT 05/23/2020 which showed 20 cm length of ileal involvement along withinflammatory changes in the ascending colon, mesenteric stranding, and mild ascites. MRE: 01/2021-- marked improvement with mild enhancement 3 cm TI Cte: 08/2021- mild b/l hydronephrosis and ureteral dilation, no stone seen - small umbilical hernia, ?mild thickening and enhancement TI CT 05/23- enteritis and partial SBO, mesenteric stranding MRe: 07/2023: mild inflammation, at TI infliximab level was low so dose increased to 10mg/kg INTERIM: Saw cardiology, awaiting CTA due to equivocal stress test he is tolerating chlorthalidone well no nausea or vomiting no constipation no blood in stool no fever no joint pain or swelling no skin rash he denies acid reflux no urine symptoms he is taking imuran 100 mg daily EXAM: GENERAL: The patient is well developed and nontoxic. VITAL SIGNS:see workflow HEENT: Nonicteric sclerae, PERRLA, EOMI. Oropharynx clear. Moist mucous membranes. Conjunctivae appear well perfused. No thyroid mass. CHEST: Chest wall is nontender. HEART: Regular rate and rhythm without murmurs. LUNGS: Clear to auscultation bilaterally. ABDOMEN: Soft, positive bowel sounds, nontender, no organomegaly.no flank tenderness SKIN:, no excessive bruising, petechiae, or purpura. no moles or raised lesions NEUROLOGIC: Cranial nerves II-XII intact without motor/sensory deficit. Assessment and plan (1) Crohns disease of small and large intestine---in remission on remicade/imuran with good effect but imaging with mild inflammation, remicade increased to 10 mg/kg 2) exertional chest pain and elevated BP --pos FH of CAD--seems like stable angina --awaiting CTA from cardiology PLAN: 1/ cont with remicade and imuran for at least 1-2 yr to prevent antibody development--cut down imuran to 50 mg 2/ non smoker, reviewed diet and lifestyle again today renetta low salt diet 3/ cont with thiazide, hold on statin, his LDL was v good [facility] Medical History Retroperitoneal fibrosis Crohn's disease involving terminal ileum Crohns disease of small intestine Surgical History History of esophagogastroduodenoscopy (EGD) Hx of colonoscopy Social History Patient Tobacco Use Status: Never used Tobacco service: No Current occupational status: employed Physical Exam Vital Signs: Last Vital Signs Pulse 67 01/12/24 09:22 BP 144/96 H 05/13/24 09:22 BMI result Body Mass Index 32.5 Assessment & Plan Assessment & Plan (1) Crohn's disease involving terminal ileum: Code(s): K50.00 - Crohn's disease of small intestine without complications Category: Medical Plan: Assessment and plan (1) Crohns disease of small and large intestine---in remission on remicade/imuran with good effect but imaging with mild inflammation, remicade increased to 10 mg/kg 2) exertional chest pain and elevated BP --pos FH of CAD--seems like stable angina --awaiting CTA from cardiology PLAN: 1/ cont with remicade and imuran for at least 1-2 yr to prevent antibody development--cut down imuran to 50 mg 2/ non smoker, reviewed diet and lifestyle again today renetta low salt diet 3/ cont with thiazide, hold on statin, his LDL was v good Coding Level of Care Code Est Pt Level 3 (21988) Diagnoses Crohn's disease involving terminal ileum K50.00
[2024-01-12 09:22] VITALS: BP 144/96; PULSE 67; BMI 32.5
[2024-01-12 09:40] VITALS: BP 132/72; PULSE 57
== END 2024-01-12 09:42 | disposition home or self-care (01) ==
PROVIDERS: PCP Internal Medicine; Visit Provider Internal Medicine Gastroenterology
DX: K50.00 Crohn's disease of small intestine without complications (principal)
CPT/HCPCS: 99213

== ENCOUNTER → 2024-01-12 09:18 | Outpatient (BNVA) | payer OTHER, SELFPAY | PROVIDERS: PCP Internal Medicine; Visit Provider Internal Medicine Gastroenterology | DX: K50.00 Crohn's disease of small intestine without complications (principal) | CPT/HCPCS: 99212 ==

== ENCOUNTER 2024-06-08 16:41 | Emergency (ER) | payer OTHER, SELFPAY ==
--- NOTE | ~2024-06-08 | XR_ITS ---
EXAMINATION: XR HAND/WRIST, LEFT CLINICAL INFORMATION: Left index finger injury. COMPARISON: None available. TECHNIQUE: PA, lateral, and oblique views of the left hand and wrist. FINDINGS: Soft tissue swelling of the index finger with a small laceration at the tip of the finger. No unexpected radiopaque foreign bodies. No acute osseous findings. XR/XR hand wrist LT IMPRESSION: 1. Soft tissue swelling and laceration of the index finger. 2. No acute osseous findings. Electronically signed by: Dina Josue MD 06/08/2024 08:18 PM EDT
[2024-06-08 17:14] VITALS: BP 140/98; PULSE 65; RESP 16; TEMP 36.4; O2SAT 98; BMI 30.6
--- NOTE | 2024-06-08 17:20 | ED_ITS ---
HPI - General Adult General Chief complaint: Wound/Laceration Stated complaint: Finger lac Time Seen by Provider: 06/08/24 20:21 Related Data Previous Rx's ?Medication ?Instructions ?Recorded infliximab 100 mg intravenous 500 mg IV Q8W 56 days #5 ea 09/06/20 solution (Remicade) nitroglycerin 0.4 mg sublingual 0.4 mg sublingual Q5M PRN chest 10/06/23 tablet pain #14 tabs omeprazole 20 mg capsule,delayed 20 mg PO DAILY PRN gerd #90 caps 01/12/24 release zinc acetate 50 mg (zinc) capsule 50 mg PO DAILY 90 days #90 caps 01/12/24 (Galzin) azathioprine 50 mg tablet 100 mg (2 x 50 mg) PO DAILY 90 02/26/24 days #180 tabs chlorthalidone 25 mg tablet 25 mg PO DAILY #90 tabs 03/26/24 Allergies Allergy/AdvReac Type Severity Reaction Status Date / Time Penicillins [PENICILLINS] Allergy Severe HIVES Verified 06/08/24 17:16 [facility] Past Medical History Medical History Retroperitoneal fibrosis Crohn's disease involving terminal ileum Crohns disease of small intestine Surgical History History of esophagogastroduodenoscopy (EGD) Hx of colonoscopy Social History Social History Patient Tobacco Use Status: Never used Tobacco Advance Directives: No Advance Directives Information Provided: No service: No Current occupational status: employed Physical Exam ED Vital Signs: Vital Signs - 24 hr 06/08/24 17:14 Temperature 97.6 F Pulse Rate 65 Respiratory Rate 16 Blood Pressure 140/98 H Pulse Oximetry 98 Oxygen Delivery Method Room Air BMI result Body Mass Index 30.6 Course Course Course Narrative: SISSY; run by LAURA Berman. 38-year-old male presents to ED for left index laceration caused by cutting himself with a scissor by accident this morning. Physical exam positive for skin avulsion. Was sent for x-ray to make sure there is no avulsion fracture. Patient up-to-date with Tdap. Medications Administered Discontinued Medications Generic Name Dose Route Start Last Admin Trade Name Freq PRN Reason Stop Dose Admin Silver Nitrate 1 appl 06/08/24 20:27 06/08/24 20:31 Silver Nitrate Applicator Stick..Ea. TOPICAL 06/08/24 20:28 1 appl ONCE ONE Administration Discharge Plan Discharge Clinical Impression: Avulsion of skin Patient Disposition: Home, Self-Care Instructions: Skin Avulsion (ED) Additional Instructions: Local care as advised Prescriptions: No Action Remicade 100 mg recon soln 500 mg IV Q8W 56 Days Qty: 5 3RF Rx Instructions: Administer 5mg/kg intravenously over over 2 hrs, round to the nearest 100mg Galzin 50 mg (zinc) capsule 50 mg PO DAILY 90 Days Qty: 90 3RF omeprazole 20 mg capsule,delayed release(DR/EC) 20 mg PO DAILY PRN (Reason: gerd) Qty: 90 1RF azathioprine 50 mg tablet 100 mg PO DAILY 90 Days Qty: 180 2RF chlorthalidone 25 mg tablet 25 mg PO DAILY Qty: 90 0RF nitroglycerin 0.4 mg tablet, sublingual 0.4 mg sublingual Q5M PRN (Reason: chest pain) Qty: 14 0RF Rx Instructions: do not exceed 3 doses per episode Stand Alone Forms: Work/School Release Print Language: Mongolian
[2024-06-08] MEDS: Silver Nitrate Applicator STICK..EA. 1 APPL TOPICAL (20:31)
--- NOTE | 2024-06-08 20:40 | ED_ITS ---
HPI - Wound/Laceration General Chief Complaint: Wound/Laceration Stated Complaint: Finger lac Time Seen by Provider: 06/08/24 20:21 Source: patient Mode of arrival: ambulatory Limitations: no limitations History of Present Illness ED Provider: shawnee SHARMA narrative: Patient has got superficial avulsion laceration to left index finger from the sharp secissor earlier today patient is up-to-date on tetanus shot Related Data Previous Rx's ?Medication ?Instructions ?Recorded infliximab 100 mg intravenous 500 mg IV Q8W 56 days #5 ea 09/06/20 solution (Remicade) nitroglycerin 0.4 mg sublingual 0.4 mg sublingual Q5M PRN chest 10/06/23 tablet pain #14 tabs omeprazole 20 mg capsule,delayed 20 mg PO DAILY PRN gerd #90 caps 01/12/24 release zinc acetate 50 mg (zinc) capsule 50 mg PO DAILY 90 days #90 caps 01/12/24 (Galzin) azathioprine 50 mg tablet 100 mg (2 x 50 mg) PO DAILY 90 02/26/24 days #180 tabs chlorthalidone 25 mg tablet 25 mg PO DAILY #90 tabs 03/26/24 Allergies Allergy/AdvReac Type Severity Reaction Status Date / Time Penicillins [PENICILLINS] Allergy Severe HIVES Verified 06/08/24 17:16 Review of Systems 2 Review of Systems: Yes all other systems are reviewed and are negative [facility] Past Medical History Medical History Retroperitoneal fibrosis Crohn's disease involving terminal ileum Crohns disease of small intestine Surgical History History of esophagogastroduodenoscopy (EGD) Hx of colonoscopy Social History Social History Patient Tobacco Use Status: Never used Tobacco Advance Directives: No Advance Directives Information Provided: No service: No Current occupational status: employed Physical Exam 2 Vital Signs: Vital Signs: Last Vital Signs Temp 97.6 F 06/08/24 17:14 Pulse 65 06/08/24 17:14 Resp 16 06/08/24 17:14 BP 140/98 H 06/08/24 17:14 Pulse Ox 98 06/08/24 17:14 O2 Del Method Room Air 06/08/24 17:14 BMI result Body Mass Index 30.6 Extrem: Hand/finger images: 1. Superficial skin avulsion right index finger with minimal oozing Medications Administered Discontinued Medications Generic Name Dose Route Start Last Admin Trade Name Dio PRN Reason Stop Dose Admin Silver Nitrate 1 appl 06/08/24 20:27 06/08/24 20:31 Silver Nitrate Applicator Stick..Ea. TOPICAL 06/08/24 20:28 1 appl ONCE ONE Administration Medical Decision Making Medical Decision Making [facility] Narrative: Minor oozing from the tip of the left index avulsion laceration which was cauterized using silver nitrate no active bleeding at the time of discharge Discharge Plan Discharge Clinical Impression: Avulsion of skin Patient Disposition: Home, Self-Care Instructions: Skin Avulsion (ED) Additional Instructions: Local care as advised Prescriptions: No Action Remicade 100 mg recon soln 500 mg IV Q8W 56 Days Qty: 5 3RF Rx Instructions: Administer 5mg/kg intravenously over over 2 hrs, round to the nearest 100mg Galzin 50 mg (zinc) capsule 50 mg PO DAILY 90 Days Qty: 90 3RF omeprazole 20 mg capsule,delayed release(DR/EC) 20 mg PO DAILY PRN (Reason: gerd) Qty: 90 1RF azathioprine 50 mg tablet 100 mg PO DAILY 90 Days Qty: 180 2RF chlorthalidone 25 mg tablet 25 mg PO DAILY Qty: 90 0RF nitroglycerin 0.4 mg tablet, sublingual 0.4 mg sublingual Q5M PRN (Reason: chest pain) Qty: 14 0RF Rx Instructions: do not exceed 3 doses per episode Print Language: Comoran
[2024-06-08 21:04] VITALS: BP 140/98; PULSE 65; RESP 16; TEMP 36.4; O2SAT 98
== END 2024-06-08 21:04 | disposition home or self-care (01) ==
PROVIDERS: Emergency Provider Internal Medicine
DX: S61.211A Laceration without foreign body of left index finger without damage to nail, initial encounter (principal); M25.532 Pain in left wrist; W26.8XXA Contact with other sharp object(s), not elsewhere classified, initial encounter; Y93.89 Activity, other specified; Y92.89 Other specified places as the place of occurrence of the external cause; Y99.8 Other external cause status
CPT/HCPCS: 73110; 73130; 99282; 99283

== ENCOUNTER 2024-07-05 09:22 | Outpatient (AMB) | payer OTHER, SELFPAY ==
--- NOTE | 2024-07-05 09:26 | A.OFFVIS_ITS ---
Vital Signs 07/05/24 09:28 Height 5 ft 7 in Weight 194 lb 0.108 oz BMI 30.4 BP 131/82 Blood Pressure Location Lt brachial Position Sitting Pulse 65 Intake Visit Reasons: 6 month follow up Intake Note: Matt presents in the office as a 6 month follow up. CC: HE states that this is a follow up - he wants to talk to you about toy consultant appt. He states that he had a cardiac test done. HE states that sometimes he has a pain in the chest and would like to know if he can have the results to that. 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 and hydronephrosis who I am seeing for f/u RECAP: Pt of Dr wu The patient had presented at [facility] 05/23/20 with abdominal pain. Eval with significant Crohn's disease involving 20 cm of the distal ileum and area of the cecum and right colon. His initial Remicade infusion was 06/01/2020. He is on imuran 100 mg He feels well on the remicade but feels tied down by the treatment and having to come in for it He had c diff and treated with vancomycin Admission 05/23 for enteritis, suspected to be infectious after eating at [facility] Other DATA: Endoscopy_ colon- 05/2020-- bx wit focal colitis cecum and ileitis IMAGING: MRE: 07/2020--focal inflammatory changes involving the terminal ileum, approximately 5 cm in length. There is moderate wall thickening approximately 7 mm, low signal on T2, with hyperenhancement following gadolinium contrast. There is minor mesenteric inflammation adjacent to the ileocecal valve. The findings represent marked improvement when compared with the CT 05/23/2020 which showed 20 cm length of ileal involvement along with inflammatory changes in the ascending colon, mesenteric stranding, and mild ascites. MRE: 01/2021-- marked improvement with mild enhancement 3 cm TI Cte: 08/2021- mild b/l hydronephrosis and ureteral dilation, no stone seen - small umbilical hernia, ?mild thickening and enhancement TI CT 05/23- enteritis and partial SBO, mesenteric stranding MRe: 07/2023: mild inflammation, at TI infliximab level was low so dose increased to 10mg/kg INTERIM: Still awaiting CTA due to equivocal stress test SRI is better denies abdominal pain no constipation no blood in stool no fever no joint pain or swelling no nausea or vomiting no skin rash he denies acid reflux no urine symptoms compliant with imuran 100 mg daily EXAM: GENERAL: The patient is well developed and nontoxic. VITAL SIGNS:see workflow HEENT: Nonicteric sclerae, PERRLA, EOMI. Oropharynx clear. Moist mucous membranes. Conjunctivae appear well perfused. No thyroid mass. CHEST: Chest wall is nontender. HEART: Regular rate and rhythm without murmurs. LUNGS: Clear to auscultation bilaterally. ABDOMEN: Soft, positive bowel sounds, nontender, no organomegaly.no flank tenderness SKIN:, no excessive bruising, petechiae, or purpura. no moles or raised lesions NEUROLOGIC: Cranial nerves II-XII intact without motor/sensory deficit. Assessment and plan (1) Crohns disease of small and large intestine---in remission on remicade/imuran with good effect but imaging with mild inflammation, remicade increased to 10 mg/kg 2) exertional chest pain and elevated BP --pos FH of CAD--seems like stable angina --awaiting CTA from cardiology PLAN: 1/ cont with remicade and imuran for at least 1-2 yr to prevent antibody development--cont imuran 50 mg 2/ recheck labs today inc zinc level [facility] Medical History Retroperitoneal fibrosis Crohn's disease involving terminal ileum Crohns disease of small intestine Surgical History History of esophagogastroduodenoscopy (EGD) Hx of colonoscopy Social History Patient Tobacco Use Status: Never used Tobacco service: No Current occupational status: employed Physical Exam Vital Signs: Last Vital Signs Pulse 65 07/05/24 09:28 BP 131/82 07/05/24 09:28 BMI result Body Mass Index 30.4 Assessment & Plan Assessment & Plan (1) Crohn's disease involving terminal ileum: Code(s): K50.00 - Crohn's disease of small intestine without complications Category: Medical Plan: see above Orders: Orders Complete Blood Count Auto Diff Today K50.00 - Crohn's disease of small intestine without complications Vitamin B12 and Folate Today K50.00 - Crohn's disease of small intestine without complications Ferritin Today K50.00 - Crohn's disease of small intestine without complications Comprehensive Met. Panel Today K50.00 - Crohn's disease of small intestine without complications, K75.81 - Nonalcoholic steatohepatitis (PRIEST) C Reactive Protein Today K50.00 - Crohn's disease of small intestine without complications Zinc Today K50.00 - Crohn's disease of small intestine without complications Medications: Changed From azathioprine 100 mg (2 x 50 mg) PO DAILY 90 days 180 tabs 2RF To azathioprine 50 mg PO DAILY 90 days 90 tabs 2RF Discontinued chlorthalidone Discontinued Reason: Doctor's Order 25 mg PO DAILY 90 tabs 0RF Coding Level of Care Code Est Pt Level 3 (05518) Diagnoses Crohn's disease involving terminal ileum K50.00
[2024-07-05 09:28] VITALS: BP 131/82; PULSE 65; BMI 30.4
== END 2024-07-05 10:04 | disposition home or self-care (01) ==
PROVIDERS: Visit Provider Internal Medicine Gastroenterology
DX: K50.00 Crohn's disease of small intestine without complications (principal)
CPT/HCPCS: 99213

== ENCOUNTER 2024-07-05 09:22 | Outpatient (REF) | payer OTHER, SELFPAY ==
[2024-07-05 10:41] LABS: MANUAL DIFF FLAG NO
[2024-07-05 12:22] LABS: Basophils Percent Auto 0.5 % (0-2); Eosinophils Absolute Auto 0.2 X10*3/uL (0.0-0.4); Eosinophils Percent Auto 2.9 % (0-4); Hematocrit 43.2 % (42.0-52.0); Hemoglobin 14.4 g/dl (14.0-18.0); Imm Gran Abs Auto 0.02 X10*3/uL (0.00-0.03); Imm Gran Pct Auto 0.3 % (0.0-0.4); Lymphocytes Absolute Auto 1.5 X10*3/uL (1.2-4.9); Lymphocytes Percent Auto 24.3 % (20-40); Mean Corpuscular HGB Conc 33.3 g/dl (31.0-36.0); Mean Platelet Volume 12.2 fL (9.4-12.4); Monocytes Absolute Auto 0.6 X10*3/uL (0.1-1.2); Monocytes Percent Auto 9.6 % (2-11); Neutrophils Absolute Auto 3.8 x10*3/uL (2.0-8.3); Neutrophils Percent Auto 62.4 % (45-73); Platelet Count 229 X10*3/uL (160-400); Red Cell Distribution Width 13.7 % (11.0-16.0); White Blood Count 6.1 X10*3/uL (4.8-10.8)
[2024-07-05 13:15] LABS: Alanine Aminotransferase 27 U/L (0-40); Albumin Level 4.4 g/dL (3.5-5.0); Alkaline Phosphatase 59 U/L (39-117); Anion Gap 13 (12-20); Aspartate Amino Transferase 30 U/L (5-37); Bilirubin Total 0.8 mg/dL (0.0-1.0); Blood Urea Nitrogen 17 mg/dL (9-16); C Reactive Protein < 0.10 mg/dL (< or = 0.50); Calcium 9.8 mg/dL (8.4-10.2); Carbon Dioxide 32 mmol/L (22-29); Chloride 97 mmol/L (96-108); Estimated Glomerular Filt Rate > 60; Glucose Random 84 mg/dL (60-115); Potassium 3.1 mmol/L (3.3-5.1); Sodium 139 mmol/L (135-145); Total Protein 7.2 g/dL (6.5-8.0)
[2024-07-05 13:23] LABS: Ferritin 87 ng/mL (20-250)
[2024-07-05 13:37] LABS: Folate 11.5 ng/mL (> or = 4.0); Vitamin B12 424 pg/mL (200-900)
[2024-07-08 12:08] LABS: Zinc 82 mcg/dL (60-130)
== END 2024-07-05 09:23 | disposition home or self-care (01) ==
LOC: HO.LAB 09:22
PROVIDERS: PCP Internal Medicine; Visit Provider Internal Medicine Gastroenterology
DX: K50.00 Crohn's disease of small intestine without complications (principal); K75.81 Nonalcoholic steatohepatitis (NASH); Z79.899 Other long term (current) drug therapy
CPT/HCPCS: 36415; 80053; 82607; 82728; 82746; 84630; 85025; 86140; 99212

== ENCOUNTER 2024-09-13 09:20 | Outpatient (AMB) | payer OTHER, SELFPAY ==
--- NOTE | 2024-09-13 10:19 | AM.OFFWIN_ITS ---
Intake Vital Signs 09/13/24 10:21 Height 5 ft 7 in Weight 200 lb BMI 31.3 BP 120/82 Blood Pressure Location Lt brachial Position Sitting Pulse 64 Pulse Source Pulse Oximeter Temp 98.7 F Temp Source Oral Pulse Oximetry (%) 98 Oxygen Delivery Method Room Air Intake Visit Reasons: EP Lip concerns Intake Note: Pt is here today c/o upper lip ?blister Patient Tobacco Use Status: Never used Tobacco Allergies Penicillins [PENICILLINS] Allergy (Severe, Verified 09/13/24 10:19) HIVES HPI HPI Comments History of Present Illness Details Patient is a 38yo M with hx of Crohns who presents with lip blister He has had these before and usually goes to another urgent care Unsure if he usually uses a cream or pills Symptoms started over the weekend + R upper lip blister Stress makes worse No SOB or throat tightness No other complaints PFSH Medical History Retroperitoneal fibrosis Crohn's disease involving terminal ileum Crohns disease of small intestine Surgical History History of esophagogastroduodenoscopy (EGD) Hx of colonoscopy Social History Patient Tobacco Use Status: Never used Tobacco service: No Current occupational status: employed Review of Systems Const Denies chills and Denies fever(s) ENT Reports mouth lesions (R upper lip lesion), Denies nasal discharge, Denies sore throat and Denies throat swelling Resp Denies cough Skin/Breast Denies pruritus, Reports lesions and Reports skin pain (lesion discomfort R lip) Aller/Immun Denies throat swelling Physical Exam Vital Signs: Last Vital Signs Temp 98.7 F 09/13/24 10:21 Pulse 64 09/13/24 10:21 BP 120/82 09/13/24 10:21 Pulse Ox 98 09/13/24 10:21 Oxygen Delivery Method Room Air 09/13/24 10:21 BMI result Body Mass Index 31.3 General: Non-toxic, NAD. Speaking full sentences. Skin: Warm dry throughout. R upper lateral lip pt has one singular raised slightly scabbed lesion without induration, fluctuance or drainage. Does not hit the turner border Eye: EOMI HENT: Airway patent. Uvula midline. No pharyngeal erythema or edema. No SENIOR PUBLICATIONS SPECIALIST. Respiratory: No respiratory distress Cardiac: regular rate MSK: Full ROM extremities. Neurology: Alert. No aphasia or facial droop. Gait without abnormality Psych: Good mood and affect Assessment & Plan Assessment & Plan (1) Cold sore: Code(s): B00.1 - Herpesviral vesicular dermatitis Plan: Patient seen and evaluated. + herpes Discussed valacyclovir use; gave enough for 2 more recurrent episodes Discussed avoid kissing F/U with PCP Patient gave verbal understanding and had no additional questions or concerns at time of discharge All questions answered Medications: New valacyclovir Take 2 tablets po q 12H x 1 day. CHRISTOPHER after onset 1,000 mg PO DAILY 12 tabs 0RF Coding Level of Care Code Est Pt Level 3 (62738) Diagnoses Cold sore B00.1
[2024-09-13 10:21] VITALS: BP 120/82; PULSE 64; TEMP 37.1; O2SAT 98; BMI 31.3
== END 2024-09-13 11:08 | disposition home or self-care (01) ==
PROVIDERS: PCP Internal Medicine; Visit Provider Physician Assistant
DX: B00.1 Herpesviral vesicular dermatitis (principal)

== ENCOUNTER → 2024-09-13 09:20 | Outpatient (BNVA) | payer OTHER, SELFPAY | PROVIDERS: PCP Internal Medicine; Visit Provider Physician Assistant | DX: B00.1 Herpesviral vesicular dermatitis (principal) | CPT/HCPCS: 99212 ==

== ENCOUNTER 2024-10-01 09:16 | Outpatient (REF) | payer OTHER, SELFPAY ==
--- OUTSIDE RECORDS SUMMARY | 2024-10-01 09:46 | XMS_ITS | Clinical Summary ---
Demographics Address [address] [place] [address] Mobile Phone Home Phone Preferred Language Fijian Marital Status Buddhist Affiliation Unknown Race White Ethnic Group or Author Organization [facility] Address [address] [place] [address] Support Name Relationship Address Phone Yesandrew Arrieta Spouse [address] [place] [address] Care Team Providers Care Case Management Specialist Name Role Phone Roni Smith MD Primary Care Provider [phone] Source Comments PLEASE NOTE, if this patient is a minor, it may be UNLAWFUL to discuss sensitive information that is contained in these records (such as FAMILY PLANNING, MENTAL HEALTH or SUBSTANCE ABUSE) with the minor patient's parent or other person without the patient's specific authorization.[facility] Medications No known medications Immunizations Name Administration Dates Next Due MMR (MMR II/Priorix) 01/26/2019 TDAP 01/26/2019 Social History Tobacco Use Types Packs/Day Years Used Date Smoking Tobacco: Light Smoker Cigarettes Smokeless Tobacco: Never Tobacco Cessation:Ready to Q uit: Yes Alcohol Use Standard Drinks/Week Comments Not Currently 0 (1 standard drink = 0.6 oz pur e alcohol) Social Connections Answer Date Recorded Social Connections and Isolation 0 04/26/2019 Financial Resource Strain Answer Date R ecorded Financial Resource Strain 0 2018 Stress Answer Date Recorded Stress 0 04/26/2019 Physical Activity Answer Date Recorded Physical Activity 0 04/26/2019 Food Insecurity Answer Date Recorded Food 0 04/26/2019 Transportation Needs Answer Date Record ed Transportation 0 04/26/2019 Housing Stability Answer Date Recorded Housing 0 04/26/2019 Safety and Environment Answer Date Arturo rded Safety 0 04/26/2019 Utilities Answer Date Recorded Utilities 0 04/26/2019 Employment Answer Date Recorded Employment 0 04/26/2019 Sex and Gender Information Value Date Recorded Sex Assigned at Male 01/26/2019 6:14 AM PDT Legal Sex Male 8:08 AM PST Gender Identity Male 01/26/2019 6:14 AM PDT Sexual Orientation Straight 01/26/2019 6: 14 AM PDT Last Filed Vital Signs Vital Sign Reading Time Taken Comments Blood Pressure 118/72 01/26/2019 9:14 AM EDT Pulse 82 01/26/2019 9:14 AM EDT Temperature 36.8 ??C (98.2 ??F) 01/26/2019 9:14 AM ED T Respiratory Rate 16 01/26/2019 9:14 AM EDT Oxygen Saturation 98% 01/26/2019 9:14 AM EDT Inhaled Oxygen Concentration - - Weight 92.1 kg (203 lb) 01/26/2019 9:14 AM EDT Height 168.5 cm (5' 6.34 ) 01/26/2019 9:14 AM ED T Body Mass Index 32.43 01/26/2019 9:14 AM EDT Plan of Treatment Not on file Care Teams Case Management Specialist Relationship Specialty Start Date End Date Roni Smith MD [address] [place] [address] PCP - General Internal Medicine 01/22/19
--- OUTSIDE RECORDS SUMMARY | 2024-10-01 09:46 | XMS_ITS | Encounter Summary ---
Author Organization [facility] Address [address] [place] [address] Care Team Providers Care Frothing Machine Operator Name Role Phone Ira Segal MD Primary Care Prov ider Encounter Details Date Type Department Care Team (Latest Contact Info) Description 09/21/2024 10:54 AM EST - 09/21/2024 11:59 PM [facility] Hospital Encounter [facility] [address] [place] [address] Chest pain, unspecified type; TINAJERO (dyspnea on exertion); Tobacco use disorder Discharge Disposition: Home or Self Care Social History Tobacco Use Types Packs/Day Years Used Date Smoking Tobacco: Some Days Cigarettes Smokeless Tobacco: Former Alcohol Use Standard Drinks/Week Comments Yes 1 (1 standard drink = 0.6 oz pur e alcohol) Sex and Gender Information Value Date Recorded Sex Assigned at Not on file Gender Identity Not on file Sexual Orientation Not on file Job Start Date Occupation Industry Not on file Not on file Not on file documented as of this encounter Medications at Time of Discharge Medication Sig Dispensed Refills Start Date End Date aspirin 81 mg EC tablet Take 1 tablet (81 mg total) by mouth 1 (one) time each day. 30 tablet 09/21/2024 09/21/2025 atorvastatin (LIPITOR) 20 mg tablet Take 1 tablet (20 mg total) by mouth 1 (one) time each day. 30 each 5 09/21/2024 03/20/2025 azaTHIOprine (IMURAN) 50 mg tablet Take 1 tablet (50 mg total) by mouth 1 (one) time each day. chlorthalidone (HYGROTON) 25 mg tablet Take 1 tablet (25 mg total) by mouth 1 (one) time each day. Galzin 50 mg (zinc) capsule TOME 1 C PSULA POR V A ORAL DAILY 07/13/2024 inFLIXimab (REMICADE/UNBRANDED) 100 mg injection Inject 3 mg/kg into the vein Every 8 weeks. omeprazole (PriLOSEC) [address] capsule Take 1 capsule (20 mg total) by mouth 1 (one) time each day. documented as of this encounter Discharge Disposition Disposition Code Departure Means Destination Home or Self Care documented in this encounter Plan of Treatment Upcoming Encounters Date Type Department Care Team (Late st Contact Info) Description 01/07/2025 11:00 AM EDT Office Visit Adult Medicine [facility] [address] [place] [phone] Ira Segal MD [address] [place] [phone] documented as of this encounter Procedures Procedure Name Priority Date/Time Associated Diagnosis Comments XR CHEST 2 VIEWS Routine 09/21/2024 11:0 7 AM EST Chest pain, unspecified type TINAJERO (dyspnea on exertion) Tobacco use disorder documented in this encounter Results * XR Chest 2 Views (09/21/2024 11:07 AM EST) Anatomical Region Laterality Modality Body Radiographic Brianna ging 09/21/2024 11:1 8 AM EST Impressions 09/21/2024 11:18 AM EST No acute abnormality. -------- FINAL REPORT -------- Dictated By: Darrell Falcon Dictated Date: 09/21/2024 11:18 ET Assigned Physician: Darrell Falcon Reviewed and Electronically Signed By: Darrell Falcon Signed Date: 09/21/2024 11:18 ET Workstation ID: [id number] Transcribed By: Self Edit Transcribed Date: 09/21/2024 11:18 ET Narrative 09/21/2024 11:18 AM EST XR CHEST 2 VIEWS Reason: chest pain, sob Comparison: None FINDINGS: Lungs: Low lung volumes. No focal consolidation or pulmonary edema. Pleura: No pleural effusion or pneumothorax. Heart/Mediastinum: Cardiomediastinal silhouette is within normal limits. Bones : No acute findings Procedure Note Darrell Falcon MD - 09/21/2024 XR CHEST 2 VIEWS Reason: chest pain, sob Comparison: None FINDINGS: Lungs: Low lung volumes. No focal consolidation or pulmonary edema. Pleura: No pleural effusion or pneumothorax. Heart/Mediastinum: Cardiomediastinal silhouette is within normal limits. Bones : No acute findings IMPRESSION: No acute abnormality. -------- FINAL REPORT -------- Dictated By: Darrell Falcon Dictated Date: 09/21/2024 11:18 ET Assigned Physician: Darrell Falcon Reviewed and Electronically Signed By: Darrell Falcon Signed Date: 09/21/2024 11:18 ET Workstation ID: [id number] Transcribed By: Self Edit Transcribed Date: 09/21/2024 11:18 ET Hortencia Dontrell SANCHEZ IMLaron XR PROCEDURES documented in this encounter Visit Diagnoses Diagnosis Chest pain, unspecified type TINAJERO (dyspnea on exertion) Other dyspnea and respiratory abnormality Tobacco use disorder documented in this encounter Care Teams Frothing Machine Operator Relationship Specialty Start Date End Date Ira Segal MD [address] [place] [phone] PCP - General 09/24/23 documented as of this encounter
--- OUTSIDE RECORDS SUMMARY | 2024-10-01 09:46 | XMS_ITS | Data Portability ---
Author Organization [facility], [address] Address [address] [place] [address] Assessment No assessment recorded. Plan of Treatment Reminders Order Date Submit Date Provider Last Modified By Organization Details Last Modified Time Details Appointments None recorded. Lab microorgani sm identificat ion, unspecified specimen 2022 023 [place] [facility] ([facility] [place], [address], 3 16:07:07 hsv + vzv DNA 2022 023 [place] [facility], [address] [place], [address], 3 16:06:36 Referral None recorded. Procedures None recorded. Surgeries None recorded. Imaging None recorded. Medication Orders valacyclovi r 1 gram tablet 2022 023 [facility]armacy #[id number], [address] [place], [address], 3 11:05:03 mupirocin 2 % topical [facility]intment [id number] [address] [place], [address], 3 09:35:58 valacyclovi r 1 gram tablet 2022 023 [facility]/Pharmacy #[id number], [address] [place], [address], 3 11:33:38 valacyclovi r 1 gram tablet 2022 023 [email or web address] [facility]/Pharmacy #[id number], [address] [place], [address], 3 19:41:51 doxycycline hyclate 100 mg capsule 2022 023 [facility]/Pharmacy #[id number], [address] [place], [address], 3 18:32:49 Patient TargetsNo targets recorded. Patient Instructions Encounter Date Encounter Id Patient Instructions Last Modified By Organization Details Last Modified Time 09/30/2022 [id number] hives: care instructions [email or web address] Not available 09/30/2022 17:16:26 What is herpes?Herpes is a disease that can cause blisters and open sores on the genital area. Herpes is caused by a virus that is passed from person to person during vaginal, oral, or anal sex. Sometimes, people do not know they have herpes because they do not have any symptoms.? ? ? Herpes cannot be cured. But the disease usually causes most problems during the first few years. After that, the virus is still there, but it causes few to no symptoms. Even when the virus is active, people with herpes can take medicines to reduce and help prevent symptoms.? ? ? What are the symptoms of herpes?Some people with herpes never have any symptoms. But other people can develop symptoms within a few weeks of being infected with the herpes virus.? ? ? Symptoms usually include blisters in the genital area. In women, this area includes the vagina, butt, anus, or thighs. In men, this area includes the penis, scrotum, anus, butt, or thighs. The blisters can become painful open sores which then crust over as they heal.? ? ? Sometimes, people can have other symptoms that include:? Blisters on the mouth or lips? Fever, headache, or pain in the joints? Trouble urinating? ? ? In people with herpes, symptoms usually go away and come back. A return of symptoms is called an outbreak. Outbreaks usually include blisters and open sores in the genital area. In most people, the first outbreak is the worst and can last as long as 2 to 3 weeks. Outbreaks that happen later are usually not as severe and do not last as long.? ? ? Outbreaks might occur every month or more often, or just once or twice a year. Sometimes, people can tell when an outbreak will occur, because they feel itching or pain beforehand. Sometimes they do not know that an outbreak is coming because they have no symptoms. Whatever your pattern is, keep in mind that herpes outbreaks usually become less frequent over time as you get older.? ? ? Certain things, called triggers, can make outbreaks more likely to occur. These include stress, sunlight, menstrual periods, or getting sick.? ? ? [email or web address] Not available 09/30/2022 17:16:25 Reason for Referral None Reported. Results Created Date Observation Date Name Description Value Unit Range Abnormal Flag Note LastModifiedBy Organization Detail LastModifiedTime 02/25/20 23 03/04/2023 AEROB IC BACTE RIAL CULTU RE aerobic bacterial culture FINAL REPORT Not Available [facility] ([facility]) [address], [place], [address], 03/04/2023 14:06:10 02/25/20 23 03/04/2023 AEROB IC BACTE RIAL CULTU RE result 1 COMMEN T No growt h in 36 - 48 hours . Not Available [facility] ([facility]) [address] [address], [place], [address], 03/04/2023 14:06:10 02/25/20 23 02/28/2023 HSV AND VZV PCR PANEL vzv real time PCR NEGATI VE negati ve No Varic kaitlin krause Virus DNA detec grace. This test was [facility] [place] and its perfo rmanc e hernando cteri stics deter mined by [facility]. It has not been clear ed or appro elias by the Food and Drug Admin istra tion. The FDA has deter mined that such clear ance or appro sunny is not neces noemí. Not Available [facility] ([facility]) [address], [place], [address], 02/28/2023 16:06:36 02/25/20 23 02/28/2023 HSV AND VZV PCR PANEL hsv-1 DNA POSITI VE negati ve abnormal Not Available [facility] ([facility]) [address] [facility] [address], [place], [address], 02/28/2023 16:06:36 02/25/20 23 02/28/2023 HSV AND VZV PCR PANEL hsv-2 DNA NEGATI VE negati ve This test was devel oped and its perfo rmanc e hernando cteri stics deter mined by [facility] Labor atori es. It has not been clear ed or appro elias by the U.S. Food and Drug Admin istra tion. The FDA has deter mined that such clear ance or appro sunny is not neces noemí. This test is used for clini becky purpo ses. It shoul d not be regar ded as inves tigat ional or resea rch. Not Available [facility] ([facility]) [address] [address], [place], [address], 02/28/2023 16:06:36 Result Notes None recorded. Problems Name Problem SNOMED Code Status Onset Date Resolution Date Notes Provider Name and Address Organization Details Recorded Time Crohn's disease 96677384 Active 023 YAZMIN DON null, PA - [facility] 09/30/2022 16:58:12 Problem Notes None recorded. Medical Equipment None Reported. Allergies Allergen ID Allergen Name Allergen Category Reaction Reaction Severity Criticality Documentation Date Start Date Code Code System Note Provider Name and Address Organization Details Recorded Time 220936 Product containin g penicilli n and antibioti c (product) medicatio n Not available Not available unabletoasse ss 09/30/2022 81288 05 SNOMED YAZMIN DON null, PA - [facility] 17:00:38 Medications Name Sig Start Date Stop Date Status Note LastModified by Organization Details LastModified Time doxycycline hyclate 100 mg capsule Take 1 capsule twice a day by oral route for 7 days. 06/26/ 2023 active Not Available Not Available Not Avai lable valacyclovir 1 gram tablet Take 1 tablet every 12 hours by oral route with meals for 7 days. 2022 active Not Available Not Available Not Avai lable mupirocin 2 % topical ointment Apply 1 application 3 times a day by topical route for 10 days. 2022 active Not Available Not Available Not Avai lable zinc active Not Available Not Availa ble Not Available omeprazole active Not Available Not Av ailable Not Available azathioprine active Not Available Not Available Not Available Vitals Date Recorded Body height Provider Name an d Address Organization Details Last Updated DateTime 01/29/2023 170.18 cm Wandy Isaacs PA - [facility] 01/29/2023 11:03:50 Date Recorded Body mass index (BMI) Body weight Provider Name and Address Organization Details Last Updated DateTime 01/29/2023 30.5 kg/m2 19749.51 g Wandy Isaacs PA - [facility] 01/29/2023 11:05:58 Date Recorded Pain severity - 0-10 verbal numeric rating [Score] - Reported Provider Name and Address Organization Details Last Updated DateTime 01/29/2023 3 Wandy Isaacs PA - [facility] 01/29/2023 11:06:40 Date Recorded Respiratory rate Provider Name a nd Address Organization Details Last Updated DateTime 01/29/2023 18 /min Wandy Isaacs PA - [facility] 01/29/2023 11:07:45 Date Recorded Body temperature Provider Name a nd Address Organization Details Last Updated DateTime 01/29/2023 97.3 [degF] Wandy Isaacs PA - [facility] 01/29/2023 11:08:14 Date Recorded Heart rate Provider Name an d Address Organization Details Last Updated DateTime 01/29/2023 64 /min Wandy Isaacs PA - [facility] 01/29/2023 11:08:20 Date Recorded Oxygen saturation Oxygen saturation in Arterial blood by Pulse oximetry Provider Name and Address Organization Details Last Updated DateTime 01/29/2023 97 % 97 % Wandy Isaacs PA - [facility] 01/29/2023 11:08:18 Date Recorded Body height Provider Name an d Address Organization Details Last Updated DateTime 02/24/2023 170.18 cm Lauren Lena PA - [facility] 0 02/24/2023 18:03:31 Date Recorded Body mass index (BMI) Body weight Provider Name and Address Organization Details Last Updated DateTime 02/24/2023 30.5 kg/m2 26963.51 g Lauren Lena PA - [facility] 02/24/2023 18:03:34 Date Recorded Pain severity - 0-10 verbal numeric rating [Score] - Reported Provider Name and Address Organization Details Last Updated DateTime 02/24/2023 6 Lauren Lena PA - [facility] 0 02/24/2023 18:04:06 Date Recorded Respiratory rate Provider Name a nd Address Organization Details Last Updated DateTime 02/24/2023 20 /min Lauren Newcastle PA - [facility] 0 02/24/2023 18:04:11 Date Recorded Oxygen saturation Oxygen saturation in Arterial blood by Pulse oximetry Provider Name and Address Organization Details Last Updated DateTime 02/24/2023 100 % 100 % Lauren Newcastle PA - [facility] 02/24/2023 18:05:20 Date Recorded Heart rate Provider Name an d Address Organization Details Last Updated DateTime 02/24/2023 62 /min Lauren Newcastle PA - [facility] 0 02/24/2023 18:05:23 Date Recorded Body temperature Provider Name a nd Address Organization Details Last Updated DateTime 02/24/2023 98 [degF] Lauren Lena PA - [facility] 0 02/24/2023 18:05:25 Date Recorded Body height Provider Name an d Address Organization Details Last Updated DateTime 09/30/2022 170.18 cm YAZMIN ZAVALUNOV PA - [facility] 09/30/2022 16:59:57 Date Recorded Body mass index (BMI) Body weight Provider Name and Address Organization Details Last Updated DateTime 09/30/2022 30.5 kg/m2 67533.51 g YAZMIN ZAVALUNOV PA - [facility] 09/30/2022 17:00:10 Date Recorded Pain severity Mahajan-Han FACES pain rating scale Provider Name and Address Organization Details Last Updated DateTime 09/30/2022 7 YAZMIN ARIAN PA - [facility] 09/30/2022 17:00:28 Date Recorded Body temperature Provider Name a nd Address Organization Details Last Updated DateTime 09/30/2022 98.1 [degF] YAZMIN ARIAN PA - [facility] 09/30/2022 17:03:28 Date Recorded Heart rate Provider Name an d Address Organization Details Last Updated DateTime 09/30/2022 64 /min YAZMIN DON PA - [facility] 09/30/2022 17:03:30 Date Recorded Respiratory rate Provider Name a nd Address Organization Details Last Updated DateTime 09/30/2022 19 /min YAZMIN ARIAN PA - [facility] 09/30/2022 17:03:33 Date Recorded Oxygen saturation Oxygen saturation in Arterial blood by Pulse oximetry Provider Name and Address Organization Details Last Updated DateTime 09/30/2022 96 % 96 % YAZMIN DON PA - [facility] 09/30/2022 17:05:08 Date Recorded Systolic blood pressure Diastolic blood pressure Provider Name and Address Organization Details Last Updated DateTime 01/29/2023 146 mm[Hg] 93 mm[Hg] Wandy Ferny PA - [facility] 01/29/2023 11:09:30 Date Recorded Systolic blood pressure Diastolic blood pressure Provider Name and Address Organization Details Last Updated DateTime 02/24/2023 153 mm[Hg] 100 mm[Hg] Lauren Paredes PA - [facility] 02/24/2023 18:05:17 Date Recorded Systolic blood pressure Diastolic blood pressure Provider Name and Address Organization Details Last Updated DateTime 09/30/2022 138 mm[Hg] 85 mm[Hg] YAZMIN DON PA - [facility] 09/30/2022 17:05:13 Social History Question Answer Notes LastModified by Organizat ion Details LastModified Time Tobacco Smoking Status Never Smoker YAZMIN hernandez PA - [facility] 09/30/2022 17:01:04 What Is Your Level Of Alcohol Consumption? None [email or web address] Information not available 01/29/2023 Are You Currently Employed? Yes [employer] Information not available 09/30/2022 Have You Had Direct Contact, Or Contact During Intimacy, With Monkeypox Rash, Scabs, Or Body Fluids From A Person With Monkeypox? No Information not available 02/24/2023 Do You Use Any Illicit Or Recreational Drugs? No Information not available 09/30/2022 Have You Recently Traveled Abroad? No Information not available 09/30/2022 Are You Currently In School? No Information not available 09/30/2022 Do You Or Have You Ever Used Any Other Forms Of Tobacco Or Nicotine? No Information not available 02/24/2023 Sex: Unknown Functional Status None recorded. Mental Status None recorded. Family History Nothing Reported. Medical History No medical history recorded. Immunizations Vaccine Type Date Status Note Provider Nam e and Address Organization Details Recorded Time MMR 01/26/2019 completed Wandy Monfette null, PA - [facility] 01/29/2023 11:03:56 COVID-19, mRNA, LNP-S, PF, 30 mcg/0.3 mL dose 01/23/2021 completed Wandy Monfette null, PA - [facility] 01/29/2023 11:03:56 COVID-19, mRNA, LNP-S, PF, 30 mcg/0.3 mL dose 02/15/2021 completed Wandy Monfette null, PA - [facility] 01/29/2023 11:03:56 Tdap 01/26/2019 completed Wandy Monfette null, PA - [facility] 01/29/2023 11:03:56 Influenza, split virus, quadrivalent, PF 09/10/2020 completed Wandy Monfette null, PA - [facility] 01/29/2023 11:03:56 Influenza, split virus, quadrivalent, PF 08/09/2022 completed Wandy Monfette null, PA - [facility] 01/29/2023 11:03:56 Past Encounters Encounter ID Performer Location Encounter Start Date Encounter Closed Date Diagnosis/Indication Diagnosis SNOMED-CT Code Diagnosis ICD10 Code Diagnosis Note [id number] [address] [address] 03/15/2022 14:43:44 03/15/2022 17:20:49 [id number] [address] [place] [address] [place] [address] 10/11/2021 13:08:26 10/11/2021 15:02:46 [id number] [address] [address] [place] [address] [place] [address] 03/12/2019 19:03:09 03/12/2019 19:46:18 [id number] [address] [place] [address] [place] [address] 08/14/2019 17:29:53 08/14/2019 18:15:08 [id number] [address] [place] [address] [place] [address] 05/13/2022 16:52:35 05/13/2022 18:27:48 [id number] Juan Miguel Sanchez NP [address] [place] [address] [place] [address] 09/30/2022 13:46:08 09/30/2022 17:19:14 Herpes labialis 9374646 B00.1 [id number] Evonne Carreon MD [address] [facility] [place] [address] 01/29/2023 10:28:48 01/29/2023 11:37:29 Localized eruption of skin 715947860 R21 rash inside nose, one vesicle tip of nose, possible HSV versus staph infection intranasal ly [id number] Evonne Carreon MD [address] [place] [address] 02/24/2023 17:29:45 02/24/2023 18:34:19 Localized eruption of skin 338911986 R21 Likely another HSV outbreak wbut also considerin g recurrent staph infections .REcurrent infections , will do cultures and check for HSV and MRSA Health Concerns Section Related Observation LastModified by Organization Detai ls LastModified Time None Recorded Concern Status LastModified by Organization Details LastModified Time None Recorded Advance Directives Directive None Recorded Payers Encounter Date Sequence Insurance Name Policy Number Policy Smith Covered Member ID Smith Member ID Guarantor Name 03/15/[address] [facility] (MEDICAID REPLACEMENT - HMO) [place] Matt Berny Hendricks [id number] Matt Berny Hendricks 05/13/[address] [facility] (MEDICAID REPLACEMENT - HMO) [place] Matt Berny Hendricks [id number] Matt Berny Hendricks 05/13/2022 2 [place] Matt Berny Hendricks [id number] Matt Berny Hendricks 09/30/[address] [facility] (MEDICAID REPLACEMENT - HMO) [place] Matt Berny Hendricks [id number] Matt Berny Hendricks 09/30/2022 2 [place] Matt Berny Hendricks [id number] Matt Berny Hendricks 01/29/[address] [facility] (MEDICAID REPLACEMENT - HMO) [place] Matt Berny Hendricks [id number] Matt Berny Hendricks 02/24/[address] [facility] (MEDICAID REPLACEMENT - HMO) [place] Matt Berny Hendricks [id number] Matt Berny Hendricks Notes Date Note Type Note Provider Name and Address Organization Details Recorded Time 09/30/2022 text/html UC Rash/Skin LesionReported bypatient.Notes:cold sore right upper lip x 5 days . not getting better . denies any fever or fever with chills, denies nay SOB or respiratory distress. Juan Miguel Sanchez NP [address] [place], [address], [place] - [facility] 09/30/2022 17:17:31 01/29/2023 text/html UC Rash/Skin LesionReported bypatient.Notes:Hist ory possible cold sore lip and nose. Used an ointment one month ago which helped, mupirocin. Symptoms returned. Feels itchy and irritated right nostril, not getting better . denies any fever or fever with chills, denies nay SOB or respiratory distress. Evonne Carreon MD [address] [place], [address], [facility] - [facility] 01/30/2023 09:39:23 02/24/2023 text/html UC Rash/Skin LesionReported bypatient.Notes:Hiro grace lesion upper lip. similar to previous but slightly worse and crusted. Mupirocin ointment not helping denies any fever or fever with chills, denies nay SOB or respiratory distress.Has recurrence of these lesions in nose, on nose or upper lip Evonne Carreon MD [address] [place], [address], [facility] 02/24/2023 19:44:37
--- OUTSIDE RECORDS SUMMARY | 2024-10-01 09:46 | XMS_ITS | Encounter Summary ---
Author Organization [facility] Address [address] [place] [address] Care Team Providers Care Fish Bailer Name Role Phone Ira Segal MD Primary Care Prov ider Reason for Visit * Reason Onset Date Comments Chest Pain 09/20/2024 Shortness of Breath 09/20/2024 Encounter Details Date Type Department Care Team (Late st Contact Info) Description 09/20/2024 Telephone Adult [address] [phone] Ira Segal MD [address] [place] [id number] Chest Pain; Shortness of Breath Social History Tobacco Use Types Packs/Day Years [...] on file documented as of this encounter Progress Notes * Debbie Almanzar RN - 09/20/2024 2:12 PM EST Uncomfortable in the chest at this time Increased in pain when doing exercises Went to cardiology and testing was done and was told he was ok. When he is on the stairs he feels like he is more SOB While on the stairs he feels like he is able to get in enough air but has more discomfort in the center of the chest. When he is in the cold he has similar sensation Will need to sit for a minute to catch his breath. No longer able to run, used to be able to run witout difficulty He is speaking in complete clear sentences. No cough, wheeze, stridor or distress noted. Confirms occasionally hears a wheeze. Scheduled eval for 09/21 at 10:15 * Elaine Alaina - 09/20/2024 1:38 PM EST Patient call requires triage: Symptoms patient is presenting: patient states he has been having some sob and chest pain when climbing stairs and walking a long time - states he had gone to a geophysical prospecting surveyor a few months ago and was told everything looked good - he is speaking in full sentences during this call How long has patient had these symptoms?: few days For ALL patients calling to schedule any appointment (routine, sick visit, follow up, consult, etc.) in the outpatient setting please ask the following questions: Do you have fever of higher than 101, sore throat with difficulty swallowing or severe shortness ofbreath? no If YES to any of these above symptoms, send a message to triage and do not book. Red dot. If no, an audio or video visit should be booked. Have you had close contact with someone with Coronavirus in the last 14 days? no Have you traveled abroad? no Have you traveled recently to another state outside of [place], [place], [place], [place], [place], [place], [place]? no o If yes, did you quarantine for 14 days or have a negative covid test? no If yes to any of the above, patient is not to be scheduled in office until after 14 day quarantine or negative covid test. If pain or injury related was it due to an accident at work or from a motor vehicle accident? If yes, date of accident/Injury: No If yes, gather 3rd republican insurance information Third Green Party Information: not applicable PCP: Ira Berger MD Payor: [facility] HEALTH PLAN / Plan: [facility] MEDICAID / Product Type: *No Product type* / documented in this encounter Plan of Treatment Upcoming Encounters Date Type Department Care Team (Late st Contact Info) Description 01/07/2025 11:00 AM EDT Office Visit Adult Medicine [address] [address] Ira Segal MD [address] [place] [address] documented as of this encounter Visit Diagnoses Not on filedocumented in this encounter Care Teams Fish Bailer Relationship Specialty Start Date End Date Ira Segal MD [address] [place] [phone] PCP - General 09/24/23 documented as of this encounter
--- OUTSIDE RECORDS SUMMARY | 2024-10-01 09:46 | XMS_ITS | Encounter Summary ---
Author Organization [employer] Address [address] [place] [address] Care Team Providers Care Oxygen Therapy Teacher Name Role Phone Ira Segal MD Primary Care Prov ider Reason for Referral * Therapy (Routine) - Pending Review Specialty Diagnoses / Procedures Referred By Gayathri galvan Referred To Contact Pulmonology Diagnoses Chest pain, unspecified type TINAJERO (dyspnea on exertion) Tobacco use disorder Procedures Pulmonary function testing: Carbon Monoxide Diffusing Capacity, Helium Dilution Lung Volumes, Spirometry with Bronchodilator Hortencia Jon PA [address] [place] [address] [facility] Pulmonology [place] [address] [facility] [address] [place] [address] Referral ID Status Reason Start Date Expiration Date V isits Requested Visits Authorized [id number] Pending Review 09/21/2024 09/21/2025 1 1 Reason for Visit * Reason Comments Chest Pain Pain in center of est. Cannot take stair or run like he used to be able too. Encounter Details Date Type Department Care Team (Late st Contact Info) Description 09/21/2024 10:30 AM EST Office Visit Adult Medicine [address] [phone] Hortencia Jon PA [address] [place], [place] Chest pain, unspecified type (Primary Dx); TIANJERO (dyspnea on exertion); Primary hypertension; Pure hypercholesterolemia ; Tobacco use disorder Social History Tobacco Use Types Packs/Day Years [...] on file documented as of this encounter Last Filed Vital Signs Vital Sign Reading Time Taken Comments Blood Pressure 120/66 09/21/2024 9:40 AM EST Pulse 79 09/21/2024 9:40 AM EST Temperature 36.6 ??C (97.9 ??F) 09/21/2024 9:40 AM ES T Respiratory Rate 15 09/21/2024 9:40 AM EST Oxygen Saturation - - Inhaled Oxygen Concentration - - Weight 91.9 kg (202 lb 9.6 oz) 09/21/2024 9:40 A M EST Height 170.2 cm (5' 7 ) 09/21/2024 9:40 AM EST Body Mass Index 31.73 09/21/2024 9:40 AM EST documented in this encounter Ordered Prescriptions Prescription Sig Dispensed Refills Start Date End Da te atorvastatin (LIPITOR) 20 mg tablet Take 1 tablet (20 mg total) by mouth 1 (one) time each day. 30 each 5 09/21/2024 03/20/2025 aspirin 81 mg EC tablet Take 1 tablet (81 mg total) by mouth 1 (one) time each day. 30 tablet 5 09/21/2024 09/21/2025 documented in this encounter Progress Notes * LAURA Rizo - 09/21/2024 10:30 AM EST CHIEF COMPLAINT: Chest Pain (Pain in center of chest. Cannot take stair or run like he used to be able too. ) IDENTIFIER: Matt Hendricks is a 38 y.o. old male. HPI: Patient is a 38-year-old male who presents to the office today complaining of chest pain x 1 year. There is associated dyspnea on exertion. He notes the symptoms when running on the treadmill, going up stairs. He denies reproducible chest pain, chest pain at rest, arm pain, jaw pain, diaphoresis. He had a stress test done at [facility] 11 months ago was abnormal. He then had a [facility] normal. Patient states that he had an echo done as well. He did meet with a [employer] operator, has afollow up appointment in October 2024. He smokes 1 cigarette daily. He takes chlorthalidone for hypertension. LDL is 106. There is a family history of GA with his mother, maternal grandpa. ROS: GENERAL: No malaise, significant weight loss or fever RESPIRATORY: See HPI CARDIOVASCULAR: See HPI MUSCULOSKELETAL: No joint pain or swelling, back pain, or muscle pain NEURO: No persistent headache PAST MEDICAL HISTORY: Patient Active Problem List Diagnosis Date Noted Primary hypertension 06/21/2024 Crohn's disease of large intestine without complication (CMS/HCC) 06/21/2024 No past surgical history on file. SOCIAL HISTORY: Social History Tobacco Use Smoking status: Some Days Current packs/day: 0.10 Types: Cigarettes Smokeless tobacco: Former Substance Use Topics Alcohol use: Yes Alcohol/week: 1.0 standard drink of alcohol FAMILY HISTORY: Family History Problem Relation Name Age of Onset Stroke Mother Heart attack Mother Diabetes Father Hypertension Father No Known Problems Sister No Known Problems Brother Breast cancer Maternal Grandmother MEDICATIONS DISCONTINUED/REORDERED: There are no discontinued medications. ACTIVE MEDICATIONS: Outpatient Medications Marked as Taking for the 09/21/24 encounter (Office Visit) with LAURA Rizo Medication Sig Dispense Refill azaTHIOprine (IMURAN) 50 mg tablet Take 1 tablet (50 mg total) by mouth 1 (one) time each day. chlorthalidone (HYGROTON) 25 mg tablet Take 1 tablet (25 mg total) by mouth 1 (one) time each day. Galzin 50 mg (zinc) capsule TOME 1 C PSULA POR V A ORAL DAILY inFLIXimab (REMICADE/UNBRANDED) 100 mg injection Inject 3 mg/kg into the vein Every 8 weeks. omeprazole (PriLOSEC) [address] capsule Take 1 capsule (20 mg total) by mouth 1 (one) time each day. ALLERGIES: Allergies Allergen Reactions Penicillins PHYSICAL EXAM: Blood pressure 120/66, pulse 79, temperature 36.6 ??C (97.9 ??F), temperature source Temporal, resp. rate 15, height 1.702 m (67 ), weight 91.9 kg (202 lb 9.6 oz). Body mass index is 31.73 kg/m??. BMI is greater than 25.0 (above the normal range) - see Plan APPEARANCE: Alert and in no acute distress HEART: RRR with normal S1 and S2, no murmurs, no gallops CHEST: Non-tender LUNG: Clear to auscultation EXTREMITIES: No edema NEURO: Awake, alert LABS: Lab Results Component Value Date CHOL 193 07/06/2024 Lab Results Component Value Date HDL 71 07/06/2024 Lab Results Component Value Date LDLCALC 106 (H) 07/06/2024 Lab Results Component Value Date TRIG 81 07/06/2024 Lab Results Component Value Date CHOLHDL 2.7 07/06/2024 IMAGING: Ordered EKG: EKG done today reveals sinus rhythm with a heart rate of 65 bpm, no acute ST elevations. Reviewed with Dr. Rodarte. IMPRESSION/PLAN: 1. Chest pain, unspecified type ECG 12 lead Tracing Only XR Chest 2 Views Pulmonary function testing: Carbon Monoxide Diffusing Capacity, Helium Dilution Lung Volumes, Spirometry with Bronchodilator 2. TINAJERO (dyspnea on exertion) XR Chest 2 Views Pulmonary function testing: Carbon Monoxide Diffusing Capacity, Helium Dilution Lung Volumes, Spirometry with Bronchodilator 3. Primary hypertension 4. Pure hypercholesterolemia 5. Tobacco use disorder XR Chest 2 Views Pulmonary function testing: Carbon Monoxide Diffusing Capacity, Helium Dilution Lung Volumes, Spirometry with Bronchodilator Medication and lab orders: Orders Placed This Encounter Procedures XR Chest 2 Views ECG 12 lead Tracing Only Pulmonary function testing: Carbon Monoxide Diffusing Capacity, Helium Dilution Lung Volumes, Spirometry with Bronchodilator Other orders: None Chest pain and dyspnea on exertion x 1 year. He had an abnormal stress test, normal CT heart. Patient believes he had an echocardiogram done which was normal. EKG done today reveals sinus rhythm witha heart rate of 65 bpm, no acute ST elevations. Reviewed with Dr. Rodarte. Advised patient to follow-up with cardiology regarding his shortness of breath and chest pain, patient called and has follow up scheduled in October 2024. Will prescribe aspirin 81 mg, Lipitor 20 mg. Discussed side effects. He is a smoker, currently smoking 1 cigarette daily. We discussed smoking cessation. Will additionally order chest x-ray, PFTs for further evaluation and management. Will order CT scan of chest x-rayis unremarkable. Blood pressure is controlled today. Continue on chlorthalidone. Follow-up in [address] Rodarte. I have spent 40 minutes during this encounter including preparing to see the patient, reviewing previous cardiac studies, performing a medically appropriate examination, extensive counseling/education, discussing benefits/side effects of pharmacologic theraputic options (aspirin, Lipitor) and documenting clinical information in the electronic health record. None of this time was spent on separatebillable services or procedures. I have applied the code G2211 to this patient???s visit as the primary care provider dealing with (chest pain, dyspnea on exertion, smoker, hypertension, hyperlipidemia) leading to the extensive workup, and management associated with the medical care of this patient. This patient???s serious conditions and complex medical conditions also required several consultants needing management and coordination through my office. I have reviewed all information as it pertains to the management of this patient for final approval. Advised the patient to call me if any problems. Patient understands the plan. Patient is in agreement with the plan. Today's documentation was made using voice recognition software.This note may contain grammatical errors secondary to this software. Hortencia Jon PA-C documented in this encounter Plan of Treatment Upcoming Encounters Date Type Department Care Team (Late st Contact Info) Description 01/07/2025 11:00 AM EDT Office Visit Adult Medicine [address] [phone] Ira Segal MD [address] [place] [id number] Scheduled Orders Name Type Priority Associated Diagnoses Orde r Schedule Pulmonary function testing: Carbon Monoxide Diffusing Capacity, Helium Dilution Lung Volumes, Spirometry with Bronchodilator PFT Routine Chest pain, unspecified type TINAJERO (dyspnea on exertion) Tobacco use disorder Ordered: 09/21/2024 documented as of this encounter Procedures Procedure Name Priority Date/Time Associated Diagnosis Comments ECG 12-LEAD TRACING ONLY Routine 09/21/2024 11:07 AM EST Chest pain, unspecified type documented in this encounter Results * ECG 12 lead Tracing Only (09/21/2024 11:07 AM EST) Impressions Hortencia Jon PA - 09/21/2024 11:07 AM EST EKG done today reveals sinus rhythm with a heart rate of 65 bpm, no acute ST elevations. ??Reviewed with Dr. Rodarte. Hortencia SANCHEZ ECG ORDERABLES * XR Chest 2 Views (09/21/2024 11:07 AM EST) Anatomical Region Laterality Modality Body Radiographic Brianna ging 09/21/2024 11:1 8 AM EST Impressions 09/21/2024 11:18 AM EST No acute abnormality. -------- FINAL REPORT -------- Dictated By: Darrell Falcon Dictated Date: 09/21/2024 11:18 ET Assigned Physician: Darrell Falcon Reviewed and Electronically Signed By: Darrell Falcon Signed Date: 09/21/2024 11:18 ET Workstation ID: [id number] Transcribed By: Self Edit Transcribed Date: 09/21/2024 [...] Signed Date: 09/21/2024 11:18 ET Workstation ID: [id number] Transcribed By: Self Edit Transcribed Date: 09/21/2024 11:18 ET Hortencia Dontrell SANCHEZ IMG XR PROCEDURES documented in this encounter Visit Diagnoses Diagnosis Chest pain, unspecified type- Primary TINAJERO (dyspnea on exertion) Other dyspnea and respiratory abnormality Primary hypertension Unspecified essential hypertension Pure hypercholesterolemia Tobacco use disorder Chest pain, unspecified type TINAJERO (dyspnea on exertion) Other dyspnea and respiratory abnormality Tobacco use disorder documented in this encounter Historical Medications * This list may reflect changes made after this encounter. Medication Sig Dispensed Refills Start Date End Date Galzin 50 mg (zinc) capsule TOME 1 C PSULA POR V A ORAL DAILY 07/13/2024 added in this encounter Care Teams Oxygen Therapy Teacher Relationship Specialty Start Date End Date Ira Segal MD [address] [place] [id number] PCP - General 09/24/23 documented as of this encounter
--- OUTSIDE RECORDS SUMMARY | 2024-10-01 09:46 | XMS_ITS | Encounter Summary ---
Author Organization [facility] [address] Address [address] [place] [address] Care Team Providers Care Special Needs Librarian Name Role Phone Ira Segal MD Primary Care Prov ider Reason for Referral * Imaging (Routine) - Pending Review Specialty Diagnoses / Procedures Referred By Gayathri galvan Referred To Contact Radiology Diagnoses TINAJERO (dyspnea on exertion) Tobacco use disorder Procedures CT Chest wo Contrast Hortencia Jon PA [address] [place] [address] Referral ID Status Reason Start Date Expiration Date V isits Requested Visits Authorized [id number] Pending Review 09/21/2024 09/21/2025 1 1 Encounter Details Date Type Department Care Team ([facility] Contact Info) Description 09/21/2024 Telephone Adult Medicine [address] [phone] Hortencia Jon PA [address] [place] [address] Social History Tobacco Use Types Packs/Day Years [...] as of this encounter Progress Notes * Samara Wood MA - 09/24/2024 2:54 PM EST Patient is aware of xray results and will await to hear from radiology for CT scan * Sena Giron MA - 09/22/2024 12:24 PM EST Left message for pt to return call. * LAURA Rizo - 09/21/2024 4:05 PM EST Can you call patient and inform him of the following: Chest x-ray was unremarkable. I ordered a CT scan for further evaluation. documented in this encounter Plan of Treatment Upcoming Encounters Date Type Department Care Team (Late st Contact Info) Description 01/07/2025 11:00 AM EDT Office Visit Adult Medicine [address] [phone] Ira Segal MD [address] [place] [address] Scheduled Orders Name Type Priority Associated Diagnoses Orde r Schedule CT Chest wo Contrast Imaging Routine TINAJERO (dyspnea on exertion) Tobacco use disorder Expected: 09/21/2024, Expires: 09/21/2025 documented as of this encounter Visit Diagnoses Diagnosis TINAJERO (dyspnea on exertion)- Primary Other dyspnea and respiratory abnormality Tobacco use disorder documented in this encounter Care Teams Special Needs Librarian Relationship Specialty Start Date End Date Ira Segal MD [address] [place] [address] PCP - General 09/24/23 documented as of this encounter
--- OUTSIDE RECORDS SUMMARY | 2024-10-01 09:46 | XMS_ITS | Clinical Summary ---
Author Organization [address] [place] [address] [place] [phone] Phone Care Team Providers Care Compound Finisher Name Role Phone Ira Segal MD Primary Care Prov ider Allergies Active Allergy Reactions Criticality Noted Date Comments Penicillins 03/19/2024 Medications Medication Sig Dispensed Refills Start Date End Date Status azaTHIOprine (IMURAN) 50 mg tablet Take 1 tablet (50 mg total) by mouth 1 (one) time each day. Active chlorthalidone (HYGROTON) 25 mg tablet Take 1 tablet (25 mg total) by mouth 1 (one) time each day. Active inFLIXimab (REMICADE/UNBRANDED) 100 mg injection Inject 3 mg/kg into the vein Every 8 weeks. Active omeprazole (PriLOSEC) [address] capsule Take 1 capsule (20 mg total) by mouth 1 (one) time each day. Active Galzin 50 mg (zinc) capsule TOME 1 C PSULA POR V A ORAL DAILY 07/13/2024 Active aspirin 81 mg EC tablet Take 1 tablet (81 mg total) by mouth 1 (one) time each day. 30 tablet 5 09/21/2024 09/21/2025 Active atorvastatin (LIPITOR) 20 mg tablet Take 1 tablet (20 mg total) by mouth 1 (one) time each day. 30 each 5 09/21/2024 03/20/2025 Active Active Problems Problem Noted Date Diagnosed Date Primary hypertension 06/21/2024 Crohn's disease of large intestine without compl ication 06/21/2024 Encounters Date Type Department Care Team Description 09/21/2024 10:54 AM EST - 09/21/2024 11:59 PM EST Hospital Encounter [facility] [address] [place], [place] [phone] Chest pain, unspecified type; TINAJERO (dyspnea on exertion); Tobacco use disorder Discharge Disposition: Home or Self Care 09/21/2024 10:30 AM EST Office Visit Adult [address] [phone] Hortencia Jon PA Chest pain, unspecified type (Primary Dx); TINAJERO (dyspnea on exertion); Primary hypertension; Pure hypercholesterolemia ; Tobacco use disorder 09/21/2024 Telephone Adult Medicine [address] [phone] Hortencia Jon PA 09/20/2024 Telephone Adult [address] [phone] Ira Donovan MD Chest Pain; Shortness of Breath from Last 3 Months Immunizations Name Administration Dates Next Due Influenza trivalent, 0.5mL, preservative free (Fluarix; FluLaval; Fluzone) ages 6mo and older (Afluria) 3 years and older 06/21/2024 Medical History Medical History Date Comments Crohn disease (CMS/HCC) DX:Crohn disease (HCC); COMMENT: Diagnosed in 2021 HTN (hypertension) DX:HTN (hyper tension) Family History Medical History Relation Name Comments No Known Problems Brother Diabetes Father Hypertension Father Breast cancer Maternal Grandmother Heart attack Mother Stroke Mother No Known Problems Sister Relation Name Status Comments Brother Alive Father Alive Maternal Grandmother Mother Alive Sister Alive Social History Tobacco Use Types Packs/Day Years [...] file Not on file Not on file Obstetrics History Last Filed Vital Signs Vital Sign Reading [...] Mass Index 31.73 09/21/2024 9:40 AM EST Plan of Treatment Upcoming Encounters Date Type Department Care Team (Late st Contact Info) Description 01/07/2025 11:00 AM EDT Office Visit Adult Medicine [facility] [address] [place] [phone] Ira Segal MD [address] [place] [phone] Health Maintenance Due Date Last Done Comments Pneumococcal Vaccine: Pediatrics (0 to 5 Years) and At-Risk Patients (6 to 64 Years) (1 of 2 - PCV) 1990 Hepatitis B Vaccines (1 of 3 - 19+ 3-dose series) 11/23/2003 COVID-19 Vaccine (3 - Pfizer risk series) 03/15/2021 02/15/2021, 01/23/2021 HIV Screening 07/30/2022 Hepatitis C Screening 07/30/2022 Social Influencers of Health Screening 07/30/2022 Depression Screening 03/19/2025 03/19/2024 Hypertension/CHF/CAD Annual BMP Blood Test 07/06/2025 07/06/2024 DTaP,Tdap,and Td Vaccines (2 - Td or Tdap) 01/26/2029 01/26/2019 Cholesterol Screening (Lipid Panel) 07/06/2029 07/06/2024 MMR Vaccines Aged Out 04/12/2019, 01/26/2019 No lo nger eligible based on patient's age to complete this topic Influenza Vaccine Completed 06/21/2024, , 08/09/2022, Additional history exists HIB Vaccines Aged Out No longer eligi ble based on patient's age to complete this topic HPV Vaccines Aged Out No longer eligi ble based on patient's age to complete this topic Hepatitis A Vaccines Aged Out No long er eligible based on patient's age to complete this topic IPV Vaccines Aged Out No longer eligi ble based on patient's age to complete this topic Meningococcal ACWY Vaccine Aged Out N o longer eligible based on patient's age to complete this topic RSV Immunization Patients Under 20 months Aged Out No longer eligible based on patient's age to complete this topic Varicella Vaccines Aged Out No longer eligible based on patient's age to complete this topic Procedures Procedure Name Priority Date/Time Associated Diagnosis Comments ECG 12-LEAD TRACING ONLY Routine 09/21/2024 11:07 AM EST Chest pain, unspecified type XR CHEST 2 VIEWS Routine 09/21/2024 11:0 7 AM EST Chest pain, unspecified type TINAJERO (dyspnea on exertion) Tobacco use disorder CBC WITH AUTO DIFFERENTIAL Routine 07/06/2024 12:00 AM EST Benign hypertension COMPREHENSIVE METABOLIC PANEL Routine 07/06/2024 12:00 AM EST Benign hypertension CBC AND DIFFERENTIAL Routine 07/06/2024 12:00 AM EST Benign hypertension LIPID PANEL WITH REFLEX TO DIRECT LDL Routine 07/06/2024 12:00 AM EST Benign hypertension HM DEPRESSION SCREENING Routine 03/19/2024 from Last 3 Months or Most Recently Relevant to Health Maintenance Results * ECG 12 lead Tracing Only [...] Signed Date: 09/21/2024 11:18 ET Workstation ID: [id number] Transcribed By: Self Edit Transcribed Date: 09/21/2024 [...] Signed Date: 09/21/2024 11:18 ET Workstation ID: [id number] Transcribed By: Self Edit Transcribed Date: 09/21/2024 11:18 ET Hortencia Dontrell SANCHEZ IMLaron XR PROCEDURES * (ABNORMAL) Lipid panel with reflex to direct LDL (07/06/2024 12:00 AM EST) Cholesterol 193 0 - 200 mg/dL LAB CHEMISTRY METHOD 07/06/2024 10:52 AM EST [facility] Triglycerides 81 0 - 150 mg/dL LAB CHEMISTRY METHOD 07/06/2024 10:52 AM EST [facility] HDL 71 >=40 mg/dL LAB CHEMISTRY METHOD 07/06/2024 10:52 AM [facility] LDL Calculated 106(H) 0 - 100 mg/dL LAB CHEMISTRY METHOD 07/06/2024 10:52 AM [facility] VLDL Cholesterol Santo 16.2 mg/dL LAB CHEMISTRY METHOD 07/06/2024 10:52 AM [facility] Non HDL Chol. (LDL+VLDL) 122 <145 mg/dL LAB CHEMISTRY METHOD 07/06/2024 10:52 AM [facility] Chol/HDL Ratio 2.7 0.0 - 4.4 LAB CHEMISTRY METHOD 07/06/2024 10:52 AM [facility] Blood Venous blood specimen / Unknown 07/06/2024 07/06/2024 10:19 AM EST Ira Segal MD LAB BLOOD ORDERABLES [facility] [address] [place] [address], * (ABNORMAL) CBC auto differential (07/06/2024 12:00 AM EST) WBC 5.1 4.8 - 10.8 K/mcL LAB HEMETOLOGY METHOD 07/06/2024 10:35 AM [facility] RBC 4.80 4.50 - 5.50 M/[facility] LAB HEMETOLOGY METHOD 07/06/2024 10:35 AM [facility] Hemoglobin 14.2 13.5 - 17.5 g/dL LAB HEMETOLOGY METHOD 07/06/2024 10:35 AM [facility] Hematocrit 43.4 42.0 - 54.0 % LAB HEMETOLOGY METHOD 07/06/2024 10:35 AM [facility] MCV 90.2 79.0 - 98.0 FL LAB HEMETOLOGY METHOD 07/06/2024 10:35 AM [facility] MCH 29.5 27.0 - 32.0 pcg LAB HEMETOLOGY METHOD 07/06/2024 10:35 AM [facility] MCHC 32.7 32.0 - 37.0 g/dL LAB HEMETOLOGY METHOD 07/06/2024 10:35 AM [facility] RDW 13.5 11.0 - 15.0 % LAB HEMETOLOGY METHOD 07/06/2024 10:35 AM [facility] Platelets 210 130 - 400 K/mcL LAB HEMETOLOGY METHOD 07/06/2024 10:35 AM [facility] MPV 11.6(H) 7.0 - 11.0 FL LAB HEMETOLOGY METHOD 07/06/2024 10:35 AM [facility] NRBC 0.0 <1.0 % LAB HEMETOLOGY METHOD 07/06/2024 10:35 AM [facility] NRBC Absolute 0.00 <0.10 K/mcL LAB HEMETOLOGY METHOD 07/06/2024 10:35 AM [facility] Neutrophils Relative 57.9 % LAB HEMETOLOGY METHOD 07/06/2024 10:35 AM [facility] Lymphocytes Relative 25.7 % LAB HEMETOLOGY METHOD 07/06/2024 10:35 AM [facility] Monocytes Relative 11.1 % LAB HEMETOLOGY METHOD 07/06/2024 10:35 AM [facility] Eosinophils Relative 4.5 % LAB HEMETOLOGY METHOD 07/06/2024 10:35 AM [facility] Basophils Relative 0.6 % LAB HEMETOLOGY METHOD 07/06/2024 10:35 AM [facility] Immature Granulocytes Relative 0.2 % LAB HEMETOLOGY METHOD 07/06/2024 10:35 AM [facility] Neutrophils Absolute 2.97 1.50 - 7.00 K/mcL LAB HEMETOLOGY METHOD 07/06/2024 10:35 AM EST [facility] Lymphocytes Absolute 1.32 1.00 - 5.00 K/[facility] LAB HEMETOLOGY METHOD 07/06/2024 10:35 AM EST [facility] Monocytes Absolute 0.57 0.20 - 1.00 K/[facility] LAB HEMETOLOGY METHOD 07/06/2024 10:35 AM EST [facility] Eosinophils Absolute 0.23 0.00 - 0.50 K[facility] LAB HEMETOLOGY METHOD 07/06/2024 10:35 AM EST [facility] Basophils Absolute 0.03 0.00 - 0.20 [facility] HEMETOLOGY METHOD 07/06/2024 10:35 AM EST [facility] Immature Granulocytes Absolute 0.01 0.00 - 0.03 [facility] HEMETOLOGY METHOD 07/06/2024 10:35 AM EST [facility] Blood Venous blood specimen / Unknown 07/06/2024 07/06/2024 10:19 AM EST Ira Segal MD LAB BLOOD ORDERABLES [facility] [address] [place] [address], * Comprehensive metabolic panel (07/06/2024 12:00 AM EST) Sodium 138 133 - 145 mmol/L LAB CHEMISTRY METHOD 07/06/2024 10:52 AM EST [facility] Potassium 3.8 3.5 - 5.5 mmol/L LAB CHEMISTRY METHOD 07/06/2024 10:52 AM EST [facility] Chloride 101 96 - 110 mmol/L LAB CHEMISTRY METHOD 07/06/2024 10:52 AM EST [facility] CO2 31 21 - 32 mmol/L LAB CHEMISTRY METHOD 07/06/2024 10:52 AM [facility] Anion Gap 6 3 - 11 LAB CHEMISTRY METHOD 07/06/2024 10:52 AM [facility] Glucose 96 70 - 100 mg/dL LAB CHEMISTRY METHOD 07/06/2024 10:52 AM [facility] BUN 21 5 - 25 mg/dL LAB CHEMISTRY METHOD 07/06/2024 10:52 AM [facility] Creatinine 1.05 0.70 - 1.30 mg/dL LAB CHEMISTRY METHOD 07/06/2024 10:52 AM [facility] eGFR 93 >=60 mL/min/1. 73m2 LAB CHEMISTRY METHOD 07/06/2024 10:52 AM [facility] Comment:Calculation based on the??Chronic Kidney Disease Epidemiology Collaboration (CKD-EPI) equation refit??without adjustment for race. BUN/Creatinine Ratio 20.0 LAB CHEMISTRY METHOD 07/06/2024 10:52 AM [facility] Calcium 9.5 8.5 - 10.5 mg/dL LAB CHEMISTRY METHOD 07/06/2024 10:52 AM [facility] AST (SGOT) 28 10 - 42 unit/L LAB CHEMISTRY METHOD 07/06/2024 10:52 AM [facility] ALT (SGPT) 28 10 - 60 unit/L LAB CHEMISTRY METHOD 07/06/2024 10:52 AM [facility] Alkaline Phosphatase 70 42 - 121 unit/L LAB CHEMISTRY METHOD 07/06/2024 10:52 AM [facility] Total Protein 7.0 6.0 - 8.0 g/dL LAB CHEMISTRY METHOD 07/06/2024 10:52 AM [facility] Albumin 4.1 3.2 - 5.0 g/dL LAB CHEMISTRY METHOD 07/06/2024 10:52 AM [facility] Total Bilirubin 0.4 0.0 - 1.4 mg/dL LAB CHEMISTRY METHOD 07/06/2024 10:52 AM EST [facility] Blood Venous blood specimen / Unknown 07/06/2024 07/06/2024 10:19 AM EST Ira Segal MD LAB BLOOD ORDERABLES [facility] [address] [place] [address], * Depression Screening (03/19/2024) Depression Screening abstracted Historical Provider MD NICHOLAS Krause from Last 3 Months or Most Recently Relevant to Health Maintenance Care Teams Compound Finisher Relationship Specialty Start Date End Date Ira Segal MD [address] [place] [phone] PCP - General 09/24/23
[2024-10-01 10:12] LABS: Alanine Aminotransferase 28 U/L (0-40); Albumin Level 4.4 g/dL (3.5-5.0); Alkaline Phosphatase 59 U/L (39-117); Anion Gap 10 (12-20); Aspartate Amino Transferase 28 U/L (5-37); Bilirubin Total 0.6 mg/dL (0.0-1.0); Blood Urea Nitrogen 17 mg/dL (9-16); Calcium 9.8 mg/dL (8.4-10.2); Carbon Dioxide 31 mmol/L (22-29); Chloride 103 mmol/L (96-108); Cholesterol 130 mg/dL (<200); Estimated Glomerular Filt Rate > 60; Glucose Random 91 mg/dL (60-115); HDL Cholesterol 60 mg/dL (>40); LDL Cholesterol Calculated 60 mg/dL (<100); Potassium 3.9 mmol/L (3.3-5.1); Sodium 140 mmol/L (135-145); Total Protein 7.4 g/dL (6.5-8.0); Triglycerides 53 mg/dL (<150)
[2024-10-01 13:50] LABS: Reflex LDLD? No
[2024-10-03 08:44] LABS: LDL Cholesterol Direct 55 mg/dL (<100)
[2024-10-06 20:44] LABS: Lipoprotein A 85 nmol/L (<75)
== END 2024-10-01 09:17 | disposition home or self-care (01) ==
LOC: HO.LAB 09:16
PROVIDERS: PCP Internal Medicine; Visit Provider Internal Medicine Gastroenterology
DX: E87.6 Hypokalemia (principal); Z13.220 Encounter for screening for lipoid disorders
CPT/HCPCS: 36415; 80053; 80061; 83695; 83721

== ENCOUNTER 2024-11-03 09:00 | Outpatient (AMB) | payer OTHER, SELFPAY ==
--- NOTE | 2024-11-03 09:04 | MHC.OFFVIS ---
Vital Signs 11/03/24 09:06 Height 5 ft 7 in Weight 197 lb 1.492 oz BMI 30.9 BP 110/70 Blood Pressure Location Lt brachial Position Sitting Pulse 69 Pulse Source Monitor Intake Visit Reasons: f/up CTA Intake Note: f/up CTA Sheep Killer Required: No Accompanied by: Self / Same As Patient Allergies Penicillins [PENICILLINS] Allergy (Severe, Verified 09/13/24 10:19) HIVES Medication List - Last Reconciled 11/03/24 by Mauricio Branch MD aspirin (Adult Low Dose Aspirin) 81 mg PO DAILY atorvastatin 20 mg PO BEDTIME azathioprine 50 mg PO DAILY 90 days chlorthalidone 25 mg PO DAILY infliximab (Remicade) 500 mg IV Q8W 56 days omeprazole 20 mg PO DAILY PRN zinc acetate (Galzin) 50 mg PO DAILY HPI Comments Details: 38-year-old gentleman with Crohn's disease who was referred to stress lab for chest discomfort. I was asked to see him because he developed left bundle-branch block during exercise stress test and was seen in the stress lab. The patient has Crohn's disease and has been noticing some discomfort in his chest which he describes on the left side and central in location. He said that this is random and can happen with activity and exercise. He exercises daily in gym and does not get significant symptoms during exercise though. He said when he returns and goes up 3 flights of stairs to his house he starts feeling some discomfort at that time. He said he was given chlorthalidone and nitroglycerin and since then he is symptoms are somewhat improved and is not getting frequent episodes. When he would get discomfort will last for hours and hours. He came for exercise stress test today. While exercising he developed rate related left bundle-branch block which recovered as the heart rate slowed down. He did not get any significant discomfort in his chest during exercise reportedly. 11/03/2024: He is here for follow-up. He had stress testing done very developed rate-related left bundle-branch block. After some discussion and given the fact that he was getting some chest pains we referred him for coronary CTA. Coronary CTA did not show any coronary disease. He is saying getting shortness of breath and chest discomfort with activities. This happens only when he exercises. Last year similar symptoms happened in October in cold weather when he had stress testing done followed by a coronary CTA. He does not have any known history of asthma and has not been tested before. [facility] Medical History Retroperitoneal fibrosis Crohn's disease involving terminal ileum Crohns disease of small intestine Surgical History History of esophagogastroduodenoscopy (EGD) Hx of colonoscopy Social History Patient Tobacco Use Status: Never used Tobacco service: No Current occupational status: employed Review of Systems Const Denies chills, Denies fatigue, Denies fever(s), Denies frequent falls, Denies weakness, Denies weight gain and Denies weight loss ENT Denies dizziness Card Denies chest pain, Denies leg edema, Denies lightheadedness, Denies palpitations, Denies dyspnea and Denies dyspnea on exertion Resp Denies cough, Denies dyspnea and Denies dyspnea on exertion GI Denies hematochezia Musc Denies abnormal gait, Denies muscle weakness, Denies numbness, Denies radiating pain into limb and Denies tingling Neuro Denies abnormal gait, Denies dizziness, Denies frequent falls, Denies numbness, Denies tingling and Denies weakness Endo Denies fatigue and Denies palpitations Physical Exam Vital Signs: Last Vital Signs Pulse 69 11/03/24 09:06 BP 110/70 11/03/24 09:06 BMI result Body Mass Index 30.9 GENERAL APPEARANCE: in no acute distress, pleasant. NECK: no carotid bruit, no jugular venous distention. SKIN: no suspicious lesions, warm and dry. HEART: no murmurs, regular rate and rhythm. LUNGS: clear to auscultation bilaterally. ABDOMEN: soft, nontender. EXTREMITIES: no edema. PERIPHERAL PULSES: equal. NEUROLOGIC: No gross deficits, AAO X 3 Office Procedures EKG Details: Sinus rhythm 69 beats per minute normal ECG, QTc 400 milliseconds. [id number], Complete Assessment & Plan Assessment & Plan (1) LBBB (left bundle branch block): Code(s): I44.7 - Left bundle-branch block, unspecified Category: Medical (2) Exertional chest pain: Code(s): R07.9 - Chest pain, unspecified Category: Medical (3) SOB (shortness of breath): Code(s): R06.02 - Shortness of breath Category: Medical Plan Pleasant 38-year-old gentleman who is here for follow-up. He was seen last year when he was getting chest discomfort and underwent stress testing. He had left bundle-branch block with exercise. Subsequent to that he had a coronary CTA performed which was normal. Again in wintertime this year he has been getting some shortness of breath and chest discomfort. He is denying any nighttime coughing. Symptoms are unlikely to be related to coronary disease because coronary CTA was completely normal. Continue same medicines for now. We will do PFTs and refer him to pulmonology for further assessment. Thank you for allowing me to participate in the care of your patient. Please feel free to contact me if you have any questions. Orders: Orders PFT pulmonary function test Today R06.02 - Shortness of breath Referrals Pulmonology Referral R06.02 - Shortness of breath Coding Level of Care Code Est Pt Level 4 (35792) Diagnoses LBBB (left bundle branch block) I44.7 Exertional chest pain R07.9 SOB (shortness of breath) R06.02 CPT Codes EKG - CPT: 35689-[id number], Complete ([id number])
[2024-11-03 09:06] VITALS: BP 110/70; PULSE 69; BMI 30.9
--- OUTSIDE RECORDS SUMMARY | 2024-11-03 09:49 | XMS_ITS | Encounter Summary ---
Author Organization [facility] Address [address] [place] [address] Care Team Providers Care Customer Energy Specialist Name Role Phone Ira Segal MD Primary Care Prov ider Encounter Details Date Type Department Care Team (Late Contact Info) Description 10/12/2024 Telephone Adult Medicine [address] [phone] Hortencia Jon PA [address] [place] [address] Social History Tobacco Use Types Packs/Day Years Used Date Smoking Tobacco: Some Days Cigarettes Smokeless Tobacco: Former Alcohol Use Standard Drinks/Week Comments Yes 1 (1 standard drink = 0.6 oz pur e alcohol) Sex and Gender Information Value Date Recorded Sex Assigned at Not on file Legal Sex Male 12:54 PM EST Gender Identity Not on file Sexual Orientation Not on file documented as of this encounter Progress Notes * LAURA Rizo - 10/12/2024 4:[address] scan chest approval # [id number]. Valid from 10/12/2024-12/11/2024 documented in this encounter Plan of Treatment Upcoming Encounters Date Type Department Care Team (Late Contact Info) Description 01/07/2025 11:00 AM EDT Office Visit Adult Medicine [address] [phone] Ira Segal MD [address] [place] [phone] documented as of this encounter Visit Diagnoses Not on filedocumented in this encounter Care Teams Customer Energy Specialist Relationship Specialty Start Date End Date Ira Segal MD [address] [place] [phone] PCP - General 09/24/23 documented as of this encounter
--- OUTSIDE RECORDS SUMMARY | 2024-11-03 09:49 | XMS_ITS | Clinical Summary ---
Demographics Address [address] [facility] [place] [address] Mobile Phone Home Phone Preferred Language [place] Islander Marital Status Jew Affiliation Unknown Race White Ethnic Group or Author Organization [facility] Address [address] [place] [address] Support Name Relationship Address Phone Yesandrew Arrieta Spouse [address] [place] [address] Care Team Providers Care Bolt Man Name Role Phone Roni Smith MD Primary Care Provider [phone] Source Comments PLEASE NOTE, if this patient [...] of Treatment Not on file Care Teams Bolt Man Relationship Specialty Start Date End Date Roni Smith MD [address] [place] [address] PCP - General Internal Medicine 01/22/19
--- OUTSIDE RECORDS SUMMARY | 2024-11-03 09:49 | XMS_ITS | Clinical Summary ---
Author Organization [address] Address [address] [place] [phone] Phone Care Team Providers Care Garment Sewing Machine Operator Name Role Phone Ira Segal MD Primary Care Prov ider Allergies Active Allergy Reactions Criticality Noted Date Comments Penicillins 03/19/2024 Medications azaTHIOprine (IMURAN) 50 mg tablet Take 1 tablet (50 mg total) by mouth 1 (one) time each day. Active chlorthalidone (HYGROTON) 25 mg tablet Take 1 tablet (25 mg total) by mouth 1 (one) time each day. Active inFLIXimab (REMICADE/UNBRA NDED) 100 mg injection Inject 3 mg/kg into [...] time each day. 30 tablet 5 09/21/2024 6 Active atorvastatin (LIPITOR) 20 mg tablet Take 1 tablet (20 mg total) by mouth 1 (one) time each day. 30 each 5 09/21/2024 5 Active Active Problems Problem Noted Date Diagnosed Date Abnormal chest CT 11/01/2024 Overview (11/01/2024): Ectatic ascending thoracic aorta measuring 3.8 cm in diameter. Reviewed with Dr. Rodarte, recommend echo in 1 year Primary hypertension 06/21/2024 Crohn's disease of large intestine without compl ication 06/21/2024 Encounters Date Type Department Care Team Description 11/01/2024 Telephone Adult Medicine [address] [phone] Hortencia Jon PA 10/20/2024 12:57 PM EST - 10/20/2024 11:59 PM EST Hospital Encounter CT Scan [address] [phone] TINAJERO (dyspnea on exertion); Tobacco use disorder Discharge Disposition: Home or Self Care 10/12/2024 Telephone Adult [address] [phone] Hortencia Jon PA 09/21/2024 10:54 AM EST - 09/21/2024 11:59 PM EST Hospital Encounter XRAY [address] [phone] Chest pain, unspecified type; TINAJERO (dyspnea on exertion); Tobacco use disorder Discharge Disposition: Home or Self Care 09/21/2024 10:30 AM EST Office Visit Adult [address] [phone] Hortencia Jon PA Chest pain, unspecified type (Primary Dx); TINAJERO (dyspnea on exertion); Primary hypertension; Pure hypercholesterolemia ; Tobacco use disorder 09/21/2024 Telephone Adult [address] [phone] Hortencia Jon PA 09/20/2024 Telephone Adult Medicine [address] [phone] Ira Donovan MD Chest Pain; Shortness of [...] on file Sexual Orientation Not on file Obstetrics History Last Filed [...] 11:00 AM EDT Office Visit Adult Medicine [address] [phone] Ira Segal MD [address] [place] [phone] Health Maintenance Due Date Last Done Comments Hepatitis B Vaccines (1 of 3 - 19+ 3-dose series) 11/23/2003 Pneumococcal Vaccine: Pediatrics (0 to 5 Years) and At-Risk Patients (6 to 64 Years) (1 of 2 - PCV) 11/23/2003 COVID-19 Vaccine (3 - Pfizer risk [...] patient's age to complete this topic Meningococcal B Vacine Aged Out No lo nger eligible based on patient's age to complete this topic RSV Immunization Patients Under 20 months Aged Out No longer eligible based on patient's age to complete this topic Varicella Vaccines Aged Out No longer eligible based on patient's age to complete this topic Procedures Procedure Name Priority Date/Time Associated Diagnosis Comments CT CHEST WO CONTRAST Routine 10/20/2024 1:05 PM EST TINAJERO (dyspnea on exertion) Tobacco use disorder ECG 12-LEAD TRACING ONLY Routine 09/21/2024 11:07 AM EST Chest pain, unspecified type XR CHEST 2 VIEWS Routine 09/21/2024 11:0 7 AM EST Chest pain, unspecified type TINAJERO (dyspnea on exertion) Tobacco use disorder COMPREHENSIVE METABOLIC PANEL Routine 07/06/2024 12:00 AM EST Benign hypertension LIPID PANEL WITH REFLEX TO DIRECT LDL Routine 07/06/2024 12:00 AM EST Benign hypertension HM DEPRESSION SCREENING Routine 03/19/2024 from Last 3 Months or Most Recently Relevant to Health Maintenance Results * CT Chest wo Contrast (10/20/2024 1:05 PM EST) Anatomical Region Laterality Modality Body Computed Tomogra phy 10/20/2024 2:47 PM EST Impressions 10/21/2024 1:10 PM EST No source of symptoms identified. POS - [id number] -------- FINAL REPORT -------- Dictated By: Rhoda Ochoa Dictated Date: 10/20/2024 14:47 ET Assigned Physician: Rhoda Ochoa Reviewed and Electronically Signed By: Rhoda Ochoa Signed Date: 10/21/2024 13:10 ET Workstation ID: [id number] Transcribed By: Self Edit Transcribed Date: 10/20/2024 15:23 ET Narrative 10/21/2024 1:10 PM EST EXAM: Chest CT HISTORY: Respiratory illness. ??Nondiagnostic x-ray. ??Dyspnea on exertion. ??Tobacco use disorder. COMPARISON: ??None TECHNIQUE: Multidetector CT is obtained from lung apex to base without IV contrast. Sagittal and coronal reformatted images obtained. ??Automated exposure control utilized. TOTAL CTDIvol: 14.69 mGy FINDINGS: Lungs/pleura: No mass or infiltrate. ??Tiny calcified granuloma in the left lower lobe. ??No suspicious pulmonary nodule. Trachea and central airways are patent. ??No bronchiectasis. No pleural effusions. Lymph nodes: Sensitivity for lymphadenopathy is limited without IV contrast. ??Subcentimeter mediastinal lymph nodes. ??No definite enlarged hilar lymph nodes. Cardiovascular: Heart is not enlarged. ??No pericardial effusion. Ectatic ascending thoracic aorta measuring 3.8 cm in diameter. Soft tissues: Thyroid gland is not enlarged. No esophageal abnormality. Upper abdomen: No adrenal mass. Bones: Very mild degenerative changes in the spine. Procedure Note Rhoda Ochoa MD - 10/21/2024 EXAM: Chest CT HISTORY: Respiratory illness. Nondiagnostic x-ray. Dyspnea on exertion.Tobacco use disorder. COMPARISON: None TECHNIQUE: Multidetector CT is obtained from lung apex to base without IVcontrast. Sagittal and coronal reformatted images obtained. Automatedexposure control utilized. TOTAL CTDIvol: 14.69 mGy FINDINGS: Lungs/pleura: No mass or infiltrate. Tiny calcified granuloma in the leftlower lobe. No suspicious pulmonary nodule. Trachea and central airwaysare patent. No bronchiectasis. No pleural effusions. Lymph nodes: Sensitivity for lymphadenopathy is limited without IVcontrast. Subcentimeter mediastinal lymph nodes. No definite enlargedhilar lymph nodes. Cardiovascular: Heart is not enlarged. No pericardial effusion. Ectaticascending thoracic aorta measuring 3.8 cm in diameter. Soft tissues: Thyroid gland is not enlarged. No esophageal abnormality. Upper abdomen: No adrenal mass. Bones: Very mild degenerative changes in the spine. IMPRESSION: No source of symptoms identified. POS - [id number] -------- FINAL REPORT -------- Dictated By: Rhoda Ochoa Dictated Date: 10/20/2024 14:47 ET Assigned Physician: Rhoda Ochoa Reviewed and Electronically Signed By: Rhoda Ochoa Signed Date: 10/21/2024 13:10 ET Workstation ID: [id number] Transcribed By: Self Edit Transcribed Date: 10/20/2024 15:23 ET Hortencia SANCHEZ IMG CT PROCEDURES Final Result * ECG 12 lead Tracing Only (09/21/2024 11:07 AM EST) Impressions Hortencia Jon PA - 09/21/2024 11:07 AM EST EKG done today reveals sinus rhythm with a heart rate of 65 bpm, no acute ST elevations. ??Reviewed with Dr. Rodarte. Hortencia SANCHEZ ECG ORDERABLES Final Result * XR Chest 2 Views (09/21/2024 11:07 AM EST) Anatomical Region Laterality Modality Body Radiographic Brianna ging 09/21/2024 11:1 8 AM EST Impressions 09/21/2024 11:18 AM EST No acute abnormality. -------- FINAL REPORT -------- Dictated By: Darrell Falcon Dictated Date: 09/21/2024 11:18 ET Assigned Physician: Darrell Falcon Reviewed and Electronically Signed By: Darrell Falcon Signed Date: 09/21/2024 11:18 ET Workstation ID: [id number] Transcribed By: Self Edit Transcribed Date: 09/21/2024 [...] Signed Date: 09/21/2024 11:18 ET Workstation ID: [id number] Transcribed By: Self Edit Transcribed Date: 09/21/2024 11:18 ET us Hortencia Dontrell SANCHEZ IMLaron XR PROCEDURES Final Result * (ABNORMAL) Lipid panel with reflex to direct LDL (07/06/2024 12:00 AM EST) Cholesterol 193 0 - 200 mg/dL LAB CHEMISTRY METHOD 07/06/2024 10:52 AM EST [facility] Triglycerides 81 0 - 150 mg/dL LAB CHEMISTRY METHOD 07/06/2024 10:52 AM EST [facility] HDL 71 >=40 mg/dL LAB CHEMISTRY METHOD 07/06/2024 10:52 AM [facility] LDL Calculated 106(H) 0 - 100 mg/dL LAB CHEMISTRY METHOD 07/06/2024 10:52 AM [facility] VLDL Cholesterol S[place] 16.2 mg/dL LAB CHEMISTRY METHOD 07/06/2024 10:52 AM [facility] Non HDL Chol. (LDL+VLDL) 122 <145 mg/dL LAB CHEMISTRY METHOD 07/06/2024 10:52 AM [facility] Chol/HDL Ratio 2.7 0.0 - 4.4 LAB CHEMISTRY METHOD 07/06/2024 10:52 AM [facility] Blood Venous blood specimen / Unknown 07/06/2024 07/06/2024 10:19 AM EST Ira Segal MD LAB BLOOD ORDERABL ES Final Result [facility] [address] [place] [address], [place] [phone] * Comprehensive metabolic panel (07/06/2024 12:00 AM EST) Sodium 138 133 - 145 mmol/L LAB CHEMISTRY METHOD 07/06/2024 10:52 AM [facility] Potassium 3.8 3.5 - 5.5 mmol/L LAB CHEMISTRY METHOD 07/06/2024 10:52 AM [facility] Chloride 101 96 - 110 mmol/L LAB CHEMISTRY METHOD 07/06/2024 10:52 AM [facility] CO2 31 21 - 32 mmol/L LAB CHEMISTRY METHOD 07/06/2024 10:52 AM [facility] Anion Gap 6 3 - 11 LAB CHEMISTRY METHOD 07/06/2024 10:52 AM [facility] Glucose 96 70 - 100 mg/dL LAB CHEMISTRY METHOD 07/06/2024 10:52 AM [facility] BUN 21 5 - 25 mg/dL LAB CHEMISTRY METHOD 07/06/2024 10:52 AM [facility] Creatinine 1.05 0.70 - 1.30 mg/dL LAB CHEMISTRY METHOD 07/06/2024 10:52 AM [facility] eGFR 93 >=60 mL/min/1. 73m2 LAB CHEMISTRY METHOD 07/06/2024 10:52 AM [facility] Comment:Calculation based on the??Chronic Kidney Disease Epidemiology Collaboration (CKD-EPI) equation refit??without adjustment for race. BUN/Creatinine Ratio 20.0 LAB CHEMISTRY METHOD 07/06/2024 10:52 AM [facility] Calcium 9.5 8.5 - 10.5 mg/dL LAB CHEMISTRY METHOD 07/06/2024 10:52 AM [facility] AST (SGOT) 28 10 - 42 unit/L LAB CHEMISTRY METHOD 07/06/2024 10:52 AM [facility] ALT (SGPT) 28 10 - 60 unit/L LAB CHEMISTRY METHOD 07/06/2024 10:52 AM [facility] Alkaline Phosphatase 70 42 - 121 unit/L LAB CHEMISTRY METHOD 07/06/2024 10:52 AM [facility] Total Protein 7.0 6.0 - 8.0 g/dL LAB CHEMISTRY METHOD 07/06/2024 10:52 AM [facility] Albumin 4.1 3.2 - 5.0 g/dL LAB CHEMISTRY METHOD 07/06/2024 10:52 AM [facility] Total Bilirubin 0.4 0.0 - 1.4 mg/dL LAB CHEMISTRY METHOD 07/06/2024 10:52 AM [facility] Blood Venous blood specimen / Unknown 07/06/2024 07/06/2024 10:19 AM EST us Ira Segal MD LAB BLOOD ORDERABL ES Final Result [facility] [address] [place] [address], * Depression Screening (03/19/2024) [facility] Depression Screening abstracted Historical Provider HEALTH MAINTENANCE Final Result from Last 3 Months or Most Recently Relevant to Health Maintenance Insurance [facility] Easy Bill Online PLAN Care Teams Garment Sewing Machine Operator Relationship Specialty Start Date End Date Ira Segal MD [address] [place] [phone] PCP - General 09/24/23
--- OUTSIDE RECORDS SUMMARY | 2024-11-03 09:49 | XMS_ITS | Encounter Summary ---
Author Organization [facility] Address [address] [place] [address] Care Team Providers Care Service Consultant Name Role Phone Ira Segal MD Primary Care Prov ider Reason for Referral * Imaging (Routine) - Closed Specialty Diagnoses / Procedures Referred By Contcampos t Referred To Contact Radiology Diagnoses TINAJERO (dyspnea on exertion) Tobacco use disorder Procedures CT Chest wo Contrast Hortencia Jon PA [address] [place] [address] Phone: tel: fax: CT Scan - [address] Phone: tel: fax: Referral ID Status Reason Start Date Expiration Date Visits Re quested Visits Authorized [id number] Closed 09/21/2024 12/11/2024 1 0 Encounter Details Date Type Department Care Team (Late st Contact Info) Description 09/21/2024 Telephone Adult Medicine [address] [phone] Hortencia Jon PA [address] [place] [address] Social History Tobacco Use Types Packs/Day Years [...] 11:00 AM EDT Office Visit Adult Medicine [address] [phone] Ira Segal MD [address] [place] [phone] documented as of this encounter Results * CT Chest wo Contrast (10/20/2024 1:05 PM EST) Anatomical Region Laterality Modality Body Computed Tomogra phy 10/20/2024 2:47 PM EST Impressions 10/21/2024 1:10 PM EST No source of symptoms identified. POS - [id number] -------- FINAL REPORT -------- Dictated By: Rhoda Ochoa Dictated Date: 10/20/2024 14:47 ET Assigned Physician: Rhoda Ochoa Reviewed and Electronically Signed By: Rhoda Ochoa Signed Date: 10/21/2024 13:10 ET Workstation ID: [id number] Transcribed By: Self Edit Transcribed Date: 10/20/2024 [...] No source of symptoms identified. POS - [id number] -------- FINAL REPORT -------- Dictated By: Rhoda Ochoa Dictated Date: 10/20/2024 14:47 ET Assigned Physician: Rhoda Ochoa Reviewed and Electronically Signed By: Rhoda Ochoa Signed Date: 10/21/2024 13:10 ET Workstation ID: [id number] Transcribed By: Self Edit Transcribed Date: 10/20/2024 15:23 ET us Hortencia Dontrell SANCHEZ IMLaron CT PROCEDURES Final Result documented in this encounter Visit Diagnoses Diagnosis TINAJERO (dyspnea on exertion)- Primary Other dyspnea and respiratory abnormality Tobacco use disorder TINAJERO (dyspnea on exertion) Other dyspnea and respiratory abnormality Tobacco use disorder documented in this encounter Care Teams Service Consultant Relationship Specialty Start Date End Date Ira Segal MD [address] [place] [phone] PCP - General 09/24/23 documented as of this encounter
--- OUTSIDE RECORDS SUMMARY | 2024-11-03 09:49 | XMS_ITS | Encounter Summary ---
Author Organization [facility] Address [address] [place] [address] Care Team Providers Care Professor Of Biology Name Role Phone Ira Segal MD Primary Care Prov ider Reason for Referral * Imaging (Routine) - Closed Specialty Diagnoses / Procedures Referred By Gayathri galvan Referred To Contact Radiology Diagnoses TINAJERO (dyspnea on exertion) Tobacco use disorder Procedures CT Chest wo Contrast Hortencia Jon PA [address] [place] [address] Phone: tel: fax: CT Scan - [address] Phone: tel: fax: Referral ID Status Reason Start Date Expiration Date Visits Re quested Visits Authorized [id number] Closed 09/21/2024 12/11/2024 1 0 Reason for Visit * Imaging (Routine) - Closed Specialty Diagnoses / Procedures Referred By Gayathri galvan Referred To Contact Radiology Diagnoses TINAJERO (dyspnea on exertion) Tobacco use disorder Procedures CT Chest wo Contrast Hortencia Jon PA [address] [place] [address] Phone: tel: fax: CT Scan - [address] Phone: tel: fax: Referral ID Status Reason Start Date Expiration Date Visits Re quested Visits Authorized [id number] Closed 09/21/2024 12/11/2024 1 0 Encounter Details Date Type Department Care Team (Latest Contact Info) Description 10/20/2024 12:57 PM EST - 10/20/2024 11:59 PM EST Hospital Encounter CT Scan - [facility] [address] [place], [place] [phone] TINAJERO (dyspnea on exertion); Tobacco use disorder [...] this encounter Medications at Time of Discharge aspirin 81 mg EC tablet Take 1 tablet (81 mg total) by mouth 1 (one) time each day. 30 tablet 5 09/21/2024 09/21/2025 atorvastatin (LIPITOR) 20 mg tablet [...] POR V A ORAL DAILY 07/13/2024 inFLIXimab (REMICADE/UNBRAND ED) 100 mg injection Inject 3 mg/kg into [...] 11:00 AM EDT Office Visit Adult Medicine [facility] [address] [place], [place] [phone] Ira Segal MD [address] [place] [address] documented as of this encounter Procedures Procedure Name Priority Date/Time Associated Diagnosis Comments CT CHEST WO CONTRAST Routine 10/20/2024 1:05 PM EST TINAJERO (dyspnea on exertion) Tobacco use disorder documented in this encounter Results * CT Chest wo Contrast (10/20/2024 1:05 PM EST) Anatomical Region Laterality Modality Body Computed Tomogra phy 10/20/2024 2:47 PM EST Impressions 10/21/2024 1:10 PM EST No source of symptoms identified. POS - [id number] -------- FINAL REPORT -------- Dictated By: Rhoda Ochoa Dictated Date: 10/20/2024 14:47 ET Assigned Physician: Rhoda Ochoa Reviewed and Electronically Signed By: Rhoda Ochoa Signed Date: 10/21/2024 13:10 ET Workstation ID: [id number] Transcribed By: Self Edit Transcribed Date: 10/20/2024 [...] No source of symptoms identified. POS - [id number] -------- FINAL REPORT -------- Dictated By: Rhoda Ochoa Dictated Date: 10/20/2024 14:47 ET Assigned Physician: Rhoda Ochoa Reviewed and Electronically Signed By: Rhoda Ochoa Signed Date: 10/21/2024 13:10 ET Workstation ID: [id number] Transcribed By: Self Edit Transcribed Date: 10/20/2024 15:23 ET us Hortencia SANCHEZ IMLaron CT PROCEDURES Final Result documented in this encounter Visit Diagnoses Diagnosis TINAJERO (dyspnea on exertion) Other dyspnea and respiratory abnormality Tobacco use disorder documented in this encounter Care Teams Professor Of Biology Relationship Specialty Start Date End Date Ira Segal MD [address] [place] [phone] PCP - General 09/24/23 documented as of this encounter
--- OUTSIDE RECORDS SUMMARY | 2024-11-03 09:49 | XMS_ITS | Encounter Summary ---
Author Organization [facility] Address [address] [place] [address] Care Team Providers Care Glass Scullion Name Role Phone Ira Segal MD Primary Care Prov ider Encounter Details Date Type Department Care Team (Late Contact Info) Description 11/01/2024 Telephone Adult Medicine [facility] [address] [place] [phone] Hortencia Jon PA [address] [place], [place] Social History Tobacco Use Types Packs/Day Years [...] encounter Progress Notes * LAURA Rizo - 11/01/2024 4:35 PM EST Please call patient and inform him of the following: Chest CT scan did not show any causes of shortness of breath. It did show that his ascending thoracic aorta is 3.8 cm which is borderline. Dr. Rodarte recommended an echocardiogram in 1 year. I added it to his problem list. I ordered pulmonary function testing when I saw him. I do not see that he has an appointment. He needs to call pulmonology about this. documented in this encounter Plan of Treatment Upcoming Encounters Date Type Department Care Team (Late Contact Info) Description 01/07/2025 11:00 AM EDT Office Visit Adult Medicine [facility] [address] [place] [phone] rIa Segal MD [address] [place] [address] documented as of this encounter Visit Diagnoses Not on filedocumented in this encounter Care Teams Glass Scullion Relationship Specialty Start Date End Date Ira Segal MD [address] [place] [phone] PCP - General 09/24/23 documented as of this encounter
== END 2024-11-03 09:27 | disposition home or self-care (01) ==
PROVIDERS: PCP Internal Medicine; Visit Provider Internal Medicine Cardiovascular Disease
DX: I44.7 Left bundle-branch block, unspecified (principal); R07.9 Chest pain, unspecified; R06.02 Shortness of breath
CPT/HCPCS: 93010; 99214

== ENCOUNTER → 2024-11-03 09:00 | Outpatient (BNVA) | payer OTHER, SELFPAY | PROVIDERS: PCP Internal Medicine; Visit Provider Internal Medicine Cardiovascular Disease | DX: I44.7 Left bundle-branch block, unspecified (principal); R07.9 Chest pain, unspecified; R06.02 Shortness of breath | CPT/HCPCS: 93005; 99212 ==

== ENCOUNTER 2024-12-07 08:58 | Outpatient (REF) | payer OTHER, SELFPAY ==
--- NOTE | 2024-12-07 09:03 | PFT_ITS ---
Spirometry [] Lung Volumes [] Diffusion Capacity [] Methacholine Challenge [] Flow Volume Loops [] MVV [] MIP/MEP(Max inspiratory pressure/Max expiratory pressure) [] 6 Minute Walk Test [] ABG [] Interpretation [] MTDD
[2024-12-07 09:40] VITALS: PULSE 62; O2SAT 98
--- OUTSIDE RECORDS SUMMARY | 2024-12-07 09:46 | XMS_ITS | Clinical Summary ---
Author Organization [address] Address [address] [place] [phone] Phone Care Team Providers Care Replenishment Buyer Name Role Phone Ira Segal MD Primary [...] Care Team Description 11/01/2024 Telephone Adult Medicine [address] [phone] Hortencia Jon PA 10/20/2024 12:57 PM EST - 10/20/2024 11:59 PM EST Hospital Encounter CT Scan [address] [phone] TINAJERO (dyspnea on exertion); Tobacco use disorder Discharge Disposition: Home or Self Care 10/12/2024 Telephone Adult [address] [phone] Hortencia Jon PA 09/21/2024 10:54 AM EST - 09/21/2024 11:59 PM EST Hospital Encounter XRAY [address] [phone] Chest pain, unspecified type; TINAJERO (dyspnea on exertion); Tobacco use disorder Discharge Disposition: Home or Self Care 09/21/2024 10:30 AM EST Office Visit Adult [address] [phone] Hortencia Jon PA Chest pain, unspecified type (Primary Dx); TINAJERO (dyspnea on exertion); Primary hypertension; Pure hypercholesterolemia ; Tobacco use disorder 09/21/2024 Telephone Adult [address] [phone] Hortencia Jon PA 09/20/2024 Telephone Adult Medicine [address] [phone] Ira Donovan MD Chest Pain; Shortness of [...] 11:00 AM EDT Office Visit Adult Medicine [address] [phone] Ira Segal MD [address] [place] [phone] Health Maintenance Due Date Last Done Comments [...] age to complete this topic Meningococcal B Vaccine Aged Out No l onger eligible based on patient's age to complete [...] No source of symptoms identified. POS - [id number] -------- FINAL REPORT -------- Dictated By: Rhoda Ochoa Dictated Date: 10/20/2024 14:47 ET Assigned Physician: Rhoda Ochoa Reviewed and Electronically Signed By: Rhoda Ochoa Signed Date: 10/21/2024 13:10 ET Workstation ID: [id number] Transcribed By: Self Edit Transcribed Date: 10/20/2024 [...] No source of symptoms identified. POS - [id number] -------- FINAL REPORT -------- Dictated By: Rhoda Ochoa Dictated Date: 10/20/2024 14:47 ET Assigned Physician: Rhoda Ochoa Reviewed and Electronically Signed By: Rhoda Ochoa Signed Date: 10/21/2024 13:10 ET Workstation ID: [id number] Transcribed By: Self Edit Transcribed Date: 10/20/2024 15:23 ET us Hortencia SANCHEZ IMG CT PROCEDURES Final Result * ECG 12 lead Tracing Only (09/21/2024 11:07 AM EST) Impressions Hortencia Jon PA - 09/21/2024 11:07 AM EST EKG done today reveals sinus rhythm with a heart rate of 65 bpm, no acute ST elevations. ??Reviewed with Dr. Rodarte. us Hortencia SANCHEZ ECG ORDERABLES Final Result * [...] Signed Date: 09/21/2024 11:18 ET Workstation ID: [id number] Transcribed By: Self Edit Transcribed Date: 09/21/2024 [...] Signed Date: 09/21/2024 11:18 ET Workstation ID: [id number] Transcribed By: Self Edit Transcribed Date: 09/21/2024 11:18 ET us Hortencia Dontrell SANCHEZ IMLaron XR PROCEDURES Final Result * (ABNORMAL) Lipid panel with reflex to direct LDL (07/06/2024 12:00 AM EST) Cholesterol 193 0 - 200 mg/dL LAB CHEMISTRY METHOD 07/06/2024 10:[address] [facility] Triglycerides 81 0 - 150 mg/dL LAB CHEMISTRY METHOD 07/06/2024 10:[address] [facility] HDL 71 >=40 mg/dL LAB CHEMISTRY METHOD 07/06/2024 10:[address] [facility] LDL Calculated 106(H) 0 - 100 mg/dL LAB CHEMISTRY METHOD 07/06/2024 10:[address] [facility] VLDL Cholesterol Santo 16.2 mg/dL LAB CHEMISTRY METHOD 07/06/2024 10:[address] [facility] Non HDL Chol. (LDL+VLDL) 122 <145 mg/dL LAB CHEMISTRY METHOD 07/06/2024 10:[address] [facility] Chol/HDL Ratio 2.7 0.0 - 4.4 LAB CHEMISTRY METHOD 07/06/2024 10:[address] [facility] Blood Venous blood specimen / Unknown 07/06/2024 07/06/2024 10:19 AM EST Ira Segal MD LAB BLOOD ORDERABL ES Final Result [facility] [address] [place] [address], [place] [phone] * Comprehensive metabolic panel (07/06/2024 12:00 AM EST) Sodium 138 133 - 145 mmol/L LAB CHEMISTRY METHOD 07/06/2024 10:[address] [facility] Potassium 3.8 3.5 - 5.5 mmol/L LAB CHEMISTRY METHOD 07/06/2024 10:[address] [facility] Chloride 101 96 - 110 mmol/L LAB CHEMISTRY METHOD 07/06/2024 10:[address] [facility] CO2 31 21 - 32 mmol/L LAB CHEMISTRY METHOD 07/06/2024 10:[address] [facility] Anion Gap 6 3 - 11 LAB CHEMISTRY METHOD 07/06/2024 10:[address] [facility] Glucose 96 70 - 100 mg/dL LAB CHEMISTRY METHOD 07/06/2024 10:[address] [facility] BUN 21 5 - 25 mg/dL LAB CHEMISTRY METHOD 07/06/2024 10:[address] [facility] Creatinine 1.05 0.70 - 1.30 mg/dL LAB CHEMISTRY METHOD 07/06/2024 10:[address] [facility] eGFR 93 >=60 mL/min/1. 73m2 LAB CHEMISTRY METHOD 07/06/2024 10:[address] [facility] Comment:Calculation based on the??Chronic Kidney Disease Epidemiology Collaboration (CKD-EPI) equation refit??without adjustment for race. BUN/Creatinine Ratio 20.0 LAB CHEMISTRY METHOD 07/06/2024 10:[address] [facility] Calcium 9.5 8.5 - 10.5 mg/dL LAB CHEMISTRY METHOD 07/06/2024 10:[address] [facility] AST (SGOT) 28 10 - 42 unit/L LAB CHEMISTRY METHOD 07/06/2024 10:[address] [facility] ALT (SGPT) 28 10 - 60 unit/L LAB CHEMISTRY METHOD 07/06/2024 10:[address] [facility] Alkaline Phosphatase 70 42 - 121 unit/L LAB CHEMISTRY METHOD 07/06/2024 10:[address] [facility] Total Protein 7.0 6.0 - 8.0 g/dL LAB CHEMISTRY METHOD 07/06/2024 10:[address] [facility] Albumin 4.1 3.2 - 5.0 g/dL LAB CHEMISTRY METHOD 07/06/2024 10:[address] [facility] Total Bilirubin 0.4 0.0 - 1.4 mg/dL LAB CHEMISTRY METHOD 07/06/2024 10:[address] [facility] Blood Venous blood specimen / Unknown 07/06/2024 07/06/2024 10:19 AM EST us Ira Segal MD LAB BLOOD ORDERABL ES Final Result [facility] [address] [place] [address], * Depression Screening (03/19/2024) [facility] Depression Screening abstracted us Historical Provider HEALTH MAINTENANCE Final Result from Last 3 Months or Most Recently Relevant to Health Maintenance Insurance [facility] [employer] Care Teams Replenishment Buyer Relationship Specialty Start Date End Date Ira Segal MD [address] [place] [id number] PCP - General 09/24/23
--- OUTSIDE RECORDS SUMMARY | 2024-12-07 09:46 | XMS_ITS | Data Portability ---
Author Organization [facility], [id number] Address [address] [place] [address] Assessment No assessment recorded. Plan of Treatment Reminders Order Date Submit Date Provider Last Modified By Organization Details Last Modified Time Details Appointments None recorded. Lab microorgani sm identificat ion, unspecified specimen 2022 023 [facility], [address] [place] [address], [address], 3 16:07:07 hsv + vzv DNA 2022 023 [place] [facility], [address] [place] [address], [address], 3 16:06:36 Referral None recorded. Procedures None recorded. Surgeries None recorded. Imaging None recorded. Medication Orders valacyclovi r 1 gram tablet [address]/Pharmacy [facility][id number], [address] [place], [address], 3 19:41:51 doxycycline hyclate 100 mg capsule 2022 023 [facility]/Pharmacy #[id number], [address] [place], [address], 3 18:32:49 mupirocin 2 % topical ointment [address]/Pharmacy #2339, [address] [place], [address], 3 09:35:58 valacyclovi r 1 gram tablet 2022 023 [facility]/Pharmacy #2339, [address] [facility], [place], [address], 3 11:33:38 valacyclovi r 1 gram tablet 2022 023 [facility]/Pharmacy #[id number], [address] [facility], [place], [address], 3 11:05:03 Patient TargetsNo targets recorded. Patient Instructions Encounter Date Encounter Id Patient Instructions Last Modified By Organization Details Last Modified Time 09/30/2022 [id number] hives: care instructions [email or web address] Not available 09/30/2022 [...] bacterial culture FINAL REPORT Not Available [facility] ([facility]) [address] [facility], [place], [address], 03/04/2023 14:06:10 02/25/20 23 03/04/2023 AEROB IC BACTE RIAL CULTU RE result 1 COMMEN T No growt h in 36 - 48 hours . Not Available [facility] ([facility]) [address] [facility], [place], [address], 03/04/2023 14:06:10 02/25/20 23 02/28/2023 HSV AND [...] is not neces noemí. Not Available [facility] ([facility]) [address] [facility], [place], [address], 02/28/2023 16:06:36 02/25/20 23 02/28/2023 HSV AND VZV PCR PANEL hsv-1 DNA POSITI VE negati ve abnormal Not Available [facility] ([facility]) [address] [facility], [place], [address], 02/28/2023 16:06:36 02/25/20 23 02/28/2023 HSV AND VZV PCR PANEL hsv-2 DNA NEGATI VE negati ve This test was devel oped and its perfo rmanc e hernando cteri stics deter mined by [facility]. It has not been clear ed or appro elias by the U.S. Food and Drug Admin istra tion. The FDA has deter mined that such clear ance or appro sunny is not neces noemí. This test is used for clini becky purpo ses. It shoul d not be regar ded as inves tigat ional or resea rch. Not Available [facility] ([facility]) [address] [facility], [place], [address], 02/28/2023 16:06:36 Result Notes None recorded. Problems Name Problem SNOMED Code Status Onset Date Resolution Date Notes Provider Name and Address Organization Details Recorded Time Crohn's disease 52116812 Active 023 YAZMIN hernandez, [place] - [facility] 09/30/2022 16:58:12 Problem Notes None recorded. Medical Equipment None Reported. Allergies Allergen ID Allergen Name Allergen Category Reaction Reaction Severity Criticality Documentation Date Start Date Code Code System Note Provider Name and Address Organization Details Recorded Time 983360 Product containin g penicilli n (product) medicatio n Not available Not available unabletoasse ss 09/30/2022 42233 6558 SNOMED YAZMIN hernandez, PA - [facility] 17:00:38 Medications Name Sig Start Date Stop Date Status Note LastModified by Organization Details LastModified Time doxycycline hyclate 100 mg capsule Take 1 capsule twice a day by oral route for 7 days. 2022 active Not Available [...] Not Available Vitals Date Recorded Body height Body mass index (BMI) Body weight Pain severity - 0-10 verbal numeric rating [Score] - Reported Respiratory rate Body temperature Heart rate Oxygen saturation Oxygen saturation in Arterial blood by Pulse oximetry Systolic blood pressure Diastolic blood pressure Provider Name and Address Organization Details Last Updated DateTime 3 170.18 cm 30.5 kg/m2 93488.5 1 g 3 18 /min 97.3 [degF] 64 /min 97 % 97 % 146 mm[Hg] 93 mm[Hg] Wandy Isaacs [facility] 3 11:09:30 Date Recorded Body height Body mass index (BMI) Body weight Pain severity - 0-10 verbal numeric rating [Score] - Reported Respiratory rate Oxygen saturation Oxygen saturation in Arterial blood by Pulse oximetry Heart rate Body temperature Systolic blood pressure Diastolic blood pressure Provider Name and Address Organization Details Last Updated DateTime 3 170.18 cm 30.5 kg/m2 13490.5 1 g 6 20 /min 100 % 100 % 62 /min 98 [degF] 153 mm[Hg] 100 mm[Hg] Lauren Paredes [facility] 3 18:05:17 Date Recorded Body height Body mass index (BMI) Body weight Pain severity Mahajan-Han FACES pain rating scale Body temperature Heart rate Respiratory rate Oxygen saturation Oxygen saturation in Arterial blood by Pulse oximetry Systolic blood pressure Diastolic blood pressure Provider Name and Address Organization Details Last Updated DateTime 3 170.18 cm 30.5 kg/m2 81100.5 1 g 7 98.1 [degF] 64 /min 19 /min 96 % 96 % 138 mm[Hg] 85 mm[Hg] YAZMIN DON PA - [facility] 17:05:13 Social History Question Answer Notes LastModified by Organizat ion Details LastModified Time Tobacco Smoking Status Never Smoker YAZMIN ARIAN hernandez, PA - [facility] 09/30/2022 17:01:04 What [...] Details Recorded Time MMR 01/26/2019 completed Wandy hernandez, PA - [facility] 01/29/2023 11:03:56 COVID-19, mRNA, LNP-S, PF, 30 mcg/0.3 mL dose 01/23/2021 completed Wandy Isaacs null, PA - [facility] 01/29/2023 11:03:56 COVID-19, mRNA, LNP-S, PF, 30 mcg/0.3 mL dose 02/15/2021 completed Wandy Isaacs null, PA - [facility] 01/29/2023 11:03:56 Tdap 01/26/2019 completed Wandy Isaacs null, PA - [facility] 01/29/2023 11:03:56 Influenza, split virus, quadrivalent, PF 09/10/2020 completed Wandy Isaacs null, PA - [facility] 01/29/2023 11:03:56 Influenza, split virus, quadrivalent, PF 08/09/2022 completed LAURA Kessler - [facility] 01/29/2023 11:03:56 Past Encounters Encounter ID Performer Location Encounter Start Date Encounter Closed Date Diagnosis/Indication Diagnosis SNOMED-CT Code Diagnosis ICD10 Code Diagnosis Note [id number] [address] [place] [address] 03/15/2022 14:43:44 03/15/2022 17:20:49 [id number] [address] [place] [address] 10/11/2021 13:08:26 10/11/2021 15:02:46 [id number] [address] [place] [phone] 03/12/2019 19:03:09 03/12/2019 19:46:18 [id number] [address] [place] [address] 08/14/2019 17:29:53 08/14/2019 18:15:08 [id number] [address] [place] [address] 05/13/2022 16:52:35 05/13/2022 18:27:48 [id number] Juan Miguel Sanchez NP [address] [place] [address] 09/30/2022 13:46:08 09/30/2022 17:19:14 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 [id number] Evonne Carreon MD [address] [place] [address] 01/29/2023 10:28:48 01/29/2023 11:37:29 Localized eruption of skin 425559812 R21 rash inside nose, one vesicle tip of nose, possible HSV versus staph infection intranasal ly [id number] Evonne Carreon MD [address] [place] [address] 02/24/2023 17:29:45 02/24/2023 18:34:19 Localized eruption of skin 376075844 R21 Likely another HSV outbreak wbut also [...] Smith Member ID Guarantor Name 03/15/2022 1 [facility] (MEDICAID REPLACEMENT - HMO) [facility] Matt Berny Hendricks [id number] Matt Berny Hendricks 05/13/2022 1 [facility] (MEDICAID REPLACEMENT - HMO) [place] Matt Berny Hendricks [id number] Matt Berny Hendricks 05/13/2022 2 [place] Matt Berny Hendricks [id number] Matt Berny Hendricks 09/30/2022 1 [facility] (MEDICAID REPLACEMENT - HMO) [facility] Matt Berny Hendricks [id number] Matt Berny Hendricks 09/30/2022 2 [place] Matt Berny Hendricks [id number] Matt Berny Hendricks 01/29/2023 1 [facility] (MEDICAID REPLACEMENT - HMO) [facility] Matt Berny Hendricks [id number] Matt Berny Hendricks 02/24/2023 1 [facility] (MEDICAID REPLACEMENT - HMO) [facility] Matt Berny Hendricks [id number] Matt Berny Hendricks Notes Date Note Type Note Provider Name and Address Organization Details Recorded Time 09/30/2022 text/html UC Rash/Skin LesionReported bypatient.Notes:cold sore right upper lip x 5 days . not getting better . denies any fever or fever with chills, denies nay SOB or respiratory distress. Juan Miguel Sanchez NP [address] [place], [address], [place] - [facility] 09/30/2022 17:17:31 01/29/2023 text/html UC Rash/Skin LesionReported bypatient.Notes:Hist ory possible cold sore lip and nose. Used an ointment one month ago which helped, mupirocin. Symptoms returned. Feels itchy and irritated right nostril, not getting better . denies any fever or fever with chills, denies nay SOB or respiratory distress. Evonne Carreon MD [address] [place], [address], PA - [facility] 01/30/2023 09:39:23 02/24/2023 text/html UC Rash/Skin LesionReported bypatient.Notes:Hiro grace lesion upper lip. similar to previous but slightly worse and crusted. Mupirocin ointment not helping denies any fever or fever with chills, denies nay SOB or respiratory distress.Has recurrence of these lesions in nose, on nose or upper lip Evonne Carreon MD [address] [place], [address], [place] - [facility] 02/24/2023 19:44:37
--- OUTSIDE RECORDS SUMMARY | 2024-12-07 09:46 | XMS_ITS | Clinical Summary ---
Demographics Address [address] [facility] [place] [address] Mobile Phone Home Phone Preferred Language Cymro Marital Status Faith Affiliation Unknown Race White Ethnic Group or Author Organization [facility] Address [address] [place] [address] Support Name Relationship Address Phone Yesandrew Arrieta Spouse [address] [place] [address] Care Team Providers Care Smasher Hand Name Role Phone Roni Smith MD Primary Care Provider [phone] Source Comments PLEASE NOTE, if this patient is a minor, it may be UNLAWFUL to discuss sensitive information that is contained in these records (such as FAMILY PLANNING, MENTAL HEALTH or SUBSTANCE ABUSE) with the minor patient's parent or other person without the patient's specific authorization.[facility] Medications No known medications Immunizations Immunization Administration Dates Next Due MMR (MMR II/Priorix) [...] of Treatment Not on file Care Teams Smasher Hand Relationship Specialty Start Date End Date Roni Smith MD [address] [place] [address] PCP - General Internal Medicine 01/22/19
== END 2024-12-07 08:59 | disposition home or self-care (01) ==
LOC: HO.RESP 08:58
PROVIDERS: PCP Internal Medicine; Visit Provider Internal Medicine Cardiovascular Disease
DX: R06.02 Shortness of breath (principal)
CPT/HCPCS: 94010; 94640; 94727; 94729

== ENCOUNTER → 2024-12-07 09:03 | Outpatient (BNV) | payer OTHER, SELFPAY | PROVIDERS: PCP Internal Medicine; Visit Provider Internal Medicine Pulmonary Disease | DX: R06.02 Shortness of breath (principal) | CPT/HCPCS: 94060; 94727; 94729 ==

== ENCOUNTER 2024-12-22 15:09 | Outpatient (AMB) | payer OTHER, SELFPAY ==
--- NOTE | 2024-12-22 15:12 | A.OFFVIS_ITS ---
Vital Signs 12/22/24 15:13 Height 5 ft 7 in Weight 202 lb 13.204 oz BMI 31.8 BP 120/80 Blood Pressure Location Rt brachial Position Sitting Pulse 68 Pulse Source Pulse Oximeter Pulse Oximetry (%) 97 Oxygen Delivery Method Room Air Intake Visit Reasons: Shortness of breath Allergies Penicillins [PENICILLINS] Allergy (Severe, Verified 12/22/24 15:25) HIVES Medication List - Last Reconciled 12/22/24 by Evan Montana MD azathioprine 50 mg PO DAILY 90 days chlorthalidone 25 mg PO DAILY infliximab (Remicade) 500 mg IV Q8W 56 days omeprazole 20 mg PO DAILY PRN zinc acetate (Galzin) 50 mg PO DAILY Do you need a note to return to daycare/school/sports/work: No HPI HPI Shortness of breath: Details: THIS 39 YEARS OLD GENTLEMAN IS HERE FOR THE 1ST TIME TO BE EVALUATED FOR DYSPNEA ON EXERTION. HE HAS NO HISTORY OF BRONCHIAL ASTHMA IN CHILDHOOD OR IN HER ADULT LIFE. HE IS NONSMOKER. FOR THE PAST 6 MONTHS OR SO HE IS COMPLAINING OF GETTING SHORT OF BREATH ON WALKING FAST OR CLIMBING STAIRS. WHEN HE IS HAVING SHORTNESS OF BREATH HE DOES NOT HAVE ANY WHEEZES COUGH OR EXPECTORATION. HE ALSO DENIES HAVING ANY CHEST PAIN, BUT MAY BE NONSPECIFIC DISCOMFORT. PATIENT HAS BEEN EVALUATED BY CARDIOLOGY. HE HAD STRESS TEST DONE WHICH SHOWED EXERCISE INDUCED LEFT BUNDLE-BRANCH BLOCK, CTA OF THE CORONARY ARTERIES WAS THE NON WILLING. THIS GENTLEMAN HAS HISTORY OF CROHN'S DISEASE. HE IS BEING TREATED WITH AZATHIOPRINE 50 MG DAILY , AND REMICADE 500 MG IV Q 8 WEEKS. PATIENT THINKS THAT HE STARTED HAVING SYMPTOMS LIKE SHORTNESS OF BREATH ON CLIMBING STAIRS WHICH MAY BE A SIDE EFFECT FROM THE ABOVE-NOTED MEDS. HE UNDERWENT CT SCAN OF THE CHEST AT [facility] ON 10/20 AND NO SIGNIFICANT LUNG DISEASE WAS DETECTED. HE HAD COMPLETE PULMONARY FUNCTION TEST ON 12/07 2024, AND IT WAS ESSENTIALLY NORMAL. [facility] Medical History (Updated 12/22/24 @ 16:15 by Evan Montana MD) Dyspnea on exertion Retroperitoneal fibrosis Crohn's disease involving terminal ileum Crohns disease of small intestine Surgical History History of esophagogastroduodenoscopy (EGD) Hx of colonoscopy Social History (Updated 12/22/24 @ 15:18 by Makayla Johnson CMA) Patient Tobacco Use Status: Former Tobacco user service: No Current occupational status: employed Review of Systems Const All systems reviewed & are unremarkable except as noted in HPI and below Eyes Reports no additional complaints ENT Reports no additional complaints Card Reports chest pain (NONSPECIFIC CHEST DISCOMFORT ON HEAVY EXERCISE.) Resp Reports as per HPI GI Reports diarrhea and Reports other (BEING TREATED FOR CROHN'S DISEASE) Reports no additional complaints Musc Reports no additional complaints, Denies myalgias and Denies arthralgias Skin/Breast Reports system reviewed and no additional complaints, except as documented Neuro Reports no additional complaints Psych Reports no additional complaints Endo Reports no additional complaints Physical Exam Vital Signs: Last Vital Signs Pulse 68 12/22/24 15:13 BP 120/80 12/22/24 15:13 Pulse Ox 97 12/22/24 15:13 Oxygen Delivery Method Room Air 12/22/24 15:13 BMI result Body Mass Index 31.8 Const General: healthy appearing, comfortable, no acute distress, alert and awake Orientation/consciousness: patient oriented x3 HEENT Head: Yes normal to inspection General nose exam: No nasal polyps present and No nasal discharge present Face and sinus: Yes sinuses nontender Mouth: oropharynx normal Throat: Yes posterior oropharynx normal Eyes General: appearance normal, both eyes and all related structures Neck Neck: Yes normal visual inspection, Yes no lymphadenopathy, Yes trachea midline and Yes no JVD Thyroid: Thyroid normal Chest Chest palpation & inspection: normal inspection of the chest, normal palpation of entire chest wall and no tenderness Resp Effort & Inspection: normal respiratory effort Auscultation: clear to auscultation bilaterally, no crackles and no wheezes Cardio Palpation: normal PMI Rate: regular rate Rhythm: regular rhythm Heart sounds: no gallops and no murmurs Peripheral pulses: Peripheral pulses 2+ throughout GI Palpation (GI): Soft to palpation, nontender, No hepatosplenomegaly present and no masses Auscultation: normal bowel sounds Back/Spine/Pelvis Thoracic/Lumbar Spine: thoracic and lumbar spine normal to inspection Skin General skin exam: no rashes or lesions noted Neuro General: patient oriented x3 and no focal motor deficits Cranial nerves: Yes CN's II-XII intact bilaterally Extrem General: Yes normal to inspection, Yes no clubbing, cyanosis or edema and Yes no calf tenderness Psych Appearance: grossly normal and well kempt Speech and movement: Normal speech and movement present Results Reviewed Results Reviewed: PULMONARY FUNCTION TEST ON 12/07/24 ESSENTIALLY NORMAL, NO EVIDENCE OF OBSTRUCTIVE OR RESTRICTIVE PULMONARY DISORDER. NO RESPONSE TO BRONCHODILATOR THERAPY. I WALK HIM FOR 6 MINUTES AT RELATIVELY FAST PACE INCLUDING CLIMBING 1 FLIGHT OF STAIRS. HE WAS NOTICED TO BE SLIGHTLY SHORT OF BREATH TOWARDS THE END OF WALKING, BUT DID NOT HAVE ANY CHEST PAIN O2 SAT 97% AND DID NOT CHANGE WITH EXERCISE. Assessment & Plan Assessment & Plan (1) Dyspnea on exertion: Comment: COMPLAINS OF DYSPNEA ON EXERTION SUCH WALKING 1 OR 2 MILES AND ALSO ON CLIMBING STAIRS, HIS DYSPNEA IS PROBABLY FUNCTIONAL, AND DUE TO DECONDITIONING. ON EXAMINATION, ALSO PER CT SCAN OF THE CHEST, AND ON PULMONARY FUNCTION TEST, THERE IS NO PULMONARY ABNORMALITY. Code(s): R06.09 - Other forms of dyspnea Category: Medical Plan: EXPLAINED TO THE PATIENT IN DETAIL. ADVISE THAT HE SHOULD MODIFY HIS PATTERN OF EXERCISE. HE SHOULD WARM UP 1ST AND GOES SLOW AND THERE IS NO NEED TO RUN TOO FAST. IF HE CAN WALK ABOUT 2 MILES A DAY JUST AT A BRISK PACE THAT SHOULD BE ENOUGH FOR. ON STRESS TEST IT WAS NOTED THAT HE DEVELOPED LEFT BUNDLE BRANCH BLOCK ON EXERCISE, HEART RATE RELATED, AND FOR THAT I HOPE CARDIOLOGY WILL CONTINUE TO FOLLOW HIM UP. (2) Crohn's disease involving terminal ileum: Comment: PATIENT HAS HISTORY OF CROHN'S DISEASE CURRENTLY BEING TREATED WITH AZATHIOPRINE AND REMICADE. I WONDER IF THE SHORTNESS OF BREATH IS SECONDARY TO SOME MUSCULAR WEAKNESS AND IF IT COULD BE IS SIDE EFFECT OF THE ABOVE MEDS. Code(s): K50.00 - Crohn's disease of small intestine without complications Category: Medical Plan: PATIENT WILL CONTINUE TO FOLLOW-UP WITH HIS RACE RELATIONS ADVISER, DR. LOYOLA AND DISCUSS WITH HIM ABOUT POSSIBLE SIDE EFFECTS. Coding Level of Care Code New Pt Level 4 (65208) Diagnoses Dyspnea on exertion R06.09 Crohn's disease involving terminal ileum K50.00
[2024-12-22 15:13] VITALS: BP 120/80; PULSE 68; O2SAT 97; BMI 31.8
--- OUTSIDE RECORDS SUMMARY | 2024-12-22 17:55 | XMS_ITS | Clinical Summary ---
Author Organization [address] Address [address] [place] [phone] Phone Care Team Providers Care Director Automotive Name Role Phone Ira Segal MD Primary [...] measuring 3.8 cm in diameter. Reviewed with yoselyn Ruvalcaba echo in 1 year Primary hypertension 06/21/2024 Crohn's disease of large int estine without complication ([facility]/HCC V24, [facility]/HCC V28) 06/21/2024 Encounters Date Type Department Care Team Description 11/01/2024 Telephone Adult Medicine [address] [id number] [place], [place] [phone] Hortencia Jon PA 10/20/2024 12:57 PM EST - 10/20/2024 11:59 PM EST Hospital Encounter CT Scan - [place] [id number] [place], [place] [phone] TINAJERO (dyspnea on exertion); Tobacco use disorder Discharge Disposition: Home or Self Care 10/12/2024 Telephone Adult Medicine [address] [address] [address] [place], [place] [phone] Hortencia Jon, PA from Last 3 Months Immunizations Name Administration Dates Next Due Influenza trivalent, 0.5mL, preservative free (Fluarix; FluLaval; Fluzone) ages 6mo and older (Afluria) 3 years and older 06/21/2024 Medical History Medical History Date Comments Crohn disease ([facility]/HCC V24, [facility] V28) DX:Crohn disease (HCC); COMM ENT: Diagnosed in 2021 HTN (hypertension) DX:HTN (hyper [...] 11:00 AM EDT Office Visit Adult Medicine [facility] [address] [place] [phone] Ira Seagl MD [address] [place] [phone] Health Maintenance Due Date Last Done Comments [...] No source of symptoms identified. POS - [id number] -------- FINAL REPORT -------- Dictated By: Rhoda Ochoa Dictated Date: 10/20/2024 14:47 ET Assigned Physician: Rhoda Ochoa Reviewed and Electronically Signed By: Rhoda Ochoa Signed Date: 10/21/2024 13:10 ET Workstation ID: [id number] Transcribed By: Self Edit Transcribed Date: 10/20/2024 [...] No source of symptoms identified. POS - [id number] -------- FINAL REPORT -------- Dictated By: Rhoda Ochoa Dictated Date: 10/20/2024 14:47 ET Assigned Physician: Rhoda Ochoa Reviewed and Electronically Signed By: Rhoda Ochoa Signed Date: 10/21/2024 13:10 ET Workstation ID: [id number] Transcribed By: Self Edit Transcribed Date: 10/20/2024 15:23 ET us Hortencia SANCHEZ IMG CT PROCEDURES Final Result * (ABNORMAL) Lipid panel with reflex to direct LDL (07/06/2024 12:00 AM EST) Cholesterol 193 0 - 200 mg/dL LAB CHEMISTRY METHOD 07/06/2024 10:52 AM EST [facility] Triglycerides 81 0 - 150 mg/dL LAB CHEMISTRY METHOD 07/06/2024 10:52 AM EST [facility] HDL 71 >=40 mg/dL LAB CHEMISTRY METHOD 07/06/2024 10:52 AM [facility] LDL Calculated 106(H) 0 - 100 mg/dL LAB CHEMISTRY METHOD 07/06/2024 10:52 AM [facility] VLDL Cholesterol Santo 16.2 mg/dL LAB CHEMISTRY METHOD 07/06/2024 10:52 AM [facility] Non HDL Chol. (LDL+VLDL) 122 <145 mg/dL LAB CHEMISTRY METHOD 07/06/2024 10:52 AM [facility] Chol/HDL Ratio 2.7 0.0 - 4.4 LAB CHEMISTRY METHOD 07/06/2024 10:52 AM [facility] Blood Venous blood specimen / Unknown 07/06/2024 07/06/2024 10:19 AM EST us Ira Segal MD LAB BLOOD ORDERABL ES Final Result [facility] [address] [place] [address], * Comprehensive metabolic panel (07/06/2024 12:00 AM EST) Sodium 138 133 - 145 mmol/L LAB CHEMISTRY METHOD 07/06/2024 10:52 AM [facility] Potassium 3.8 3.5 - 5.5 mmol/L LAB CHEMISTRY METHOD 07/06/2024 10:52 AM [facility] Chloride 101 96 - 110 mmol/L LAB CHEMISTRY METHOD 07/06/2024 10:52 AM [facility] CO2 31 21 - 32 mmol/L LAB CHEMISTRY METHOD 07/06/2024 10:52 AM [facility] Anion Gap 6 3 - 11 LAB CHEMISTRY METHOD 07/06/2024 10:52 AM [facility] Glucose 96 70 - 100 mg/dL LAB CHEMISTRY METHOD 07/06/2024 10:52 AM [facility] BUN 21 5 - 25 mg/dL LAB CHEMISTRY METHOD 07/06/2024 10:52 AM [facility] Creatinine 1.05 0.70 - 1.30 mg/dL LAB CHEMISTRY METHOD 07/06/2024 10:52 AM [facility] eGFR 93 >=60 mL/min/1. 73m2 LAB CHEMISTRY METHOD 07/06/2024 10:52 AM [facility] Comment:Calculation based on the??Chronic Kidney Disease Epidemiology Collaboration (CKD-EPI) equation refit??without adjustment for race. BUN/Creatinine Ratio 20.0 LAB CHEMISTRY METHOD 07/06/2024 10:52 AM [facility] Calcium 9.5 8.5 - 10.5 mg/dL LAB CHEMISTRY METHOD 07/06/2024 10:52 AM [facility] AST (SGOT) 28 10 - 42 unit/L LAB CHEMISTRY METHOD 07/06/2024 10:52 AM [facility] ALT (SGPT) 28 10 - 60 unit/L LAB CHEMISTRY METHOD 07/06/2024 10:52 AM [facility] Alkaline Phosphatase 70 42 - 121 unit/L LAB CHEMISTRY METHOD 07/06/2024 10:52 AM [facility] Total Protein 7.0 6.0 - 8.0 g/dL LAB CHEMISTRY METHOD 07/06/2024 10:52 AM EST [facility] Albumin 4.1 3.2 - 5.0 g/dL LAB CHEMISTRY METHOD 07/06/2024 10:52 AM EST [facility] Total Bilirubin 0.4 0.0 - 1.4 mg/dL LAB CHEMISTRY METHOD 07/06/2024 10:52 AM EST [facility] Blood Venous blood specimen / Unknown 07/06/2024 07/06/2024 10:19 AM EST Ira Segal MD LAB BLOOD ORDERABL ES Final Result [facility] ([facility]) [facility] [address] [place] [address], [place] [phone] * Depression Screening (03/19/2024) [facility] Depression Screening abstracted Historical Provider HEALTH MAINTENANCE Final Result from Last 3 Months or Most Recently Relevant to Health Maintenance Insurance [employer] Care Teams Director Automotive Relationship Specialty Start Date End Date Ira Segal MD [address] [place] [phone] PCP - General 09/24/23
--- OUTSIDE RECORDS SUMMARY | 2024-12-22 17:56 | XMS_ITS | Clinical Summary ---
Demographics [facility] [address] [facility] [place] [address] Mobile Phone Home Phone Preferred Language Japanese Marital Status Evangelical Affiliation Unknown Race White Ethnic Group or Author Organization [facility] Address [address] [place] [address] Support Name Relationship Address Phone Yesandrew Arrieta Spouse [address] [place] [address] Care Team Providers Care Reactor Kettle Operator Name Role Phone Roni Smith MD Primary Care Provider [phone] Source Comments PLEASE NOTE, if this patient [...] of Treatment Not on file Care Teams Reactor Kettle Operator Relationship Specialty Start Date End Date Roni Smith MD [address] [place] [address] PCP - General Internal Medicine 01/22/19
--- OUTSIDE RECORDS SUMMARY | 2024-12-22 17:56 | XMS_ITS | Data Portability ---
Author Organization [facility], [address] Address [address] [place] [address] Assessment No assessment recorded. Plan of Treatment Reminders Order Date Submit Date Provider Last Modified By Organization Details Last Modified Time Details Appointments None recorded. Lab microorgani sm identificat ion, unspecified specimen 2022 023 [place] [facility], [address] [place] [address], [address], 3 16:07:07 hsv + vzv DNA 2022 023 [place] [facility], [address] [place] [address], [address], 3 16:06:36 Referral None recorded. Procedures None recorded. Surgeries None recorded. Imaging None recorded. Medication Orders valacyclovi r 1 gram tablet [address]/Pharmacy [facility][id number], [address] [place], [address], 3 19:41:51 doxycycline hyclate 100 mg capsule 2022 023 [facility]acy #2339, [address] [place], [address], 3 18:32:49 mupirocin 2 % topical ointment [address]/Pharmacy [facility]2339, [address] [place], [address], 3 09:35:58 valacyclovi r 1 gram tablet 2022 023 [facility]acy #2339, [address] [facility], [place], [address], 3 11:33:38 valacyclovi r 1 gram tablet 2022 023 [facility] #[id number], [address] [facility], [place], [address], 3 11:05:03 Patient TargetsNo targets recorded. Patient Instructions Encounter Date Encounter Id Patient Instructions Last Modified By Organization Details Last Modified Time 09/30/2022 [id number] hives: care instructions [email or web address] Not available 09/30/2022 [...] [facility]) [address] [facility], [place], [address], 03/04/2023 14:06:10 02/25/20 23 03/04/2023 AEROB IC BACTE RIAL CULTU RE result 1 COMMEN T No growt h in 36 - 48 hours . Not Available [facility] ([facility]) [address] [facility], [place], [address], 03/04/2023 14:06:10 02/25/20 23 02/28/2023 HSV AND [...] [facility]) [address] [facility], [place], [address], 02/28/2023 16:06:36 02/25/20 23 02/28/2023 HSV AND VZV PCR PANEL hsv-1 DNA POSITI VE negati ve abnormal Not Available [facility] ([facility]) [address] [facility], [place], [address], 02/28/2023 16:06:36 02/25/20 23 02/28/2023 HSV AND [...] [facility] [address] [facility], [place], [address], 02/28/2023 16:06:36 Result Notes None recorded. Problems Name Problem SNOMED Code Status Onset Date Resolution Date Notes Provider Name and Address Organization Details Recorded Time Crohn's disease 85940235 Active 023 YAZMIN hernandez, [place] - [facility] 09/30/2022 16:58:12 Problem Notes None recorded. Medical Equipment None Reported. Allergies Allergen ID Allergen Name Allergen Category Reaction Reaction Severity Criticality Documentation Date Start Date Code Code System Note Provider Name and Address Organization Details Recorded Time 732809 Product containin g penicilli n (product) medicatio n Not available Not available unabletoasse ss 09/30/2022 73926 1403 SNOMED YAZMIN hernandez, [place] - [facility] [...] Updated DateTime 3 170.18 cm 30.5 kg/m2 46514.5 1 g 3 18 /min 97.3 [degF] 64 /min 97 % 97 % 146 mm[Hg] 93 mm[Hg] Wandy Isaacs [employer] 3 11:09:30 Date Recorded Body height Body mass index (BMI) Body weight Pain severity - 0-10 verbal numeric rating [Score] - Reported Respiratory rate Oxygen saturation Oxygen saturation in Arterial blood by Pulse oximetry Heart rate Body temperature Systolic blood pressure Diastolic blood pressure Provider Name and Address Organization Details Last Updated DateTime 3 170.18 cm 30.5 kg/m2 93503.5 1 g 6 20 /min 100 % 100 % 62 /min 98 [degF] 153 mm[Hg] 100 mm[Hg] Lauren Paredes [employer] 3 18:05:17 Date Recorded Body height Body mass index (BMI) Body weight Pain severity Mahajan-Han FACES pain rating scale Body temperature Heart rate Respiratory rate Oxygen saturation Oxygen saturation in Arterial blood by Pulse oximetry Systolic blood pressure Diastolic blood pressure Provider Name and Address Organization Details Last Updated DateTime 3 170.18 cm 30.5 kg/m2 64734.5 1 g 7 98.1 [degF] 64 /min [...] SNOMED-CT Code Diagnosis ICD10 Code Diagnosis Note [id number] [address] [place] [address] 03/15/2022 14:43:44 03/15/2022 17:20:49 [id number] [address] [place] [phone] 10/11/2021 13:08:26 10/11/2021 15:02:46 [id number] [address] [place] [phone] 03/12/2019 19:03:09 03/12/2019 19:46:18 [id number] [address] [place] [phone] 08/14/2019 17:29:53 08/14/2019 18:15:08 [id number] [address] [place] [phone] 05/13/2022 16:52:35 05/13/2022 18:27:48 [id number] Juan Miguel Sanchez NP [address] [place] [address] 09/30/2022 13:46:08 09/30/2022 17:19:14 Herpes labialis 7308434 B00.1 [id number] Evonne Carreon MD [address] [place] [address] 01/29/2023 10:28:48 01/29/2023 11:37:29 Localized eruption of skin 449311800 R21 rash inside nose, one vesicle tip of nose, possible HSV versus staph infection intranasal ly [id number] Evonne Carreon MD [address] [place] [address] 02/24/2023 17:29:45 02/24/2023 18:34:19 Localized eruption of skin 336878771 R21 Likely another HSV outbreak wbut also [...] Smith Member ID Guarantor Name 03/15/2022 1 [facility] (MEDICAID REPLACEMENT - HMO) [place] Matt Berny Hendricks [id number] Matt Berny Hendricks 05/13/2022 1 [facility] (MEDICAID REPLACEMENT - HMO) [place] Matt Berny Hendricks [id number] Matt Berny Hendricks 05/13/2022 2 [place] Matt Berny Hendricks [id number] Matt Berny Hendricks 09/30/2022 1 [facility] (MEDICAID REPLACEMENT - HMO) [place] Matt Berny Hendricks [id number] Matt Berny Hendricks 09/30/2022 2 [place] Matt Berny Hendricks [id number] Matt Berny Hendricks 01/29/2023 1 [facility] (MEDICAID REPLACEMENT - HMO) [place] Matt Berny Hendricks [id number] Matt Berny Hendricks 02/24/2023 1 [facility] (MEDICAID REPLACEMENT - HMO) [place] Matt Berny Hendricks [id number] Matt Berny Hendricks Notes Date Note Type Note Provider Name and Address Organization Details Recorded Time 09/30/2022 text/html UC Rash/Skin LesionReported bypatient.Notes:cold sore right upper lip x 5 days . not getting better . denies any fever or fever with chills, denies nay SOB or respiratory distress. Juan Miguel Sanchez NP [address] [place], [address], [place] - [facility] 09/30/2022 17:17:31 01/29/2023 text/html UC Rash/Skin LesionReported bypatient.Notes:Hist ory possible cold sore lip and nose. Used an ointment one month ago which helped, mupirocin. Symptoms returned. Feels itchy and irritated right nostril, not getting better . denies any fever or fever with chills, denies nay SOB or respiratory distress. Evonne Carreon MD [address] [place], [address], [place] - [facility] 01/30/2023 09:39:23 02/24/2023 text/html UC Rash/Skin LesionReported bypatient.Notes:Hiro grace lesion upper lip. similar to previous but slightly worse and crusted. Mupirocin ointment not helping denies any fever or fever with chills, denies nay SOB or respiratory distress.Has recurrence of these lesions in nose, on nose or upper lip Evonne Carreon MD [address] [place], [address], [place] - [facility] 02/24/2023 19:44:37
== END 2024-12-22 16:28 | disposition home or self-care (01) ==
LOC: HO.HPS 15:10
PROVIDERS: PCP Internal Medicine; Visit Provider Internal Medicine
DX: R06.09 Other forms of dyspnea (principal); K50.00 Crohn's disease of small intestine without complications
CPT/HCPCS: 99204

== ENCOUNTER → 2024-12-22 15:09 | Outpatient (BNVA) | payer OTHER, SELFPAY | PROVIDERS: PCP Internal Medicine; Visit Provider Internal Medicine | DX: K50.00 Crohn's disease of small intestine without complications (principal); R06.09 Other forms of dyspnea | CPT/HCPCS: 99202 ==

== ENCOUNTER 2025-01-29 10:50 | Outpatient (AMB) | payer OTHER, SELFPAY ==
--- NOTE | 2025-01-29 11:02 | AM.OFFWIN_ITS ---
Intake Vital Signs 3 01/29/25 11:04 Height 5 ft 7 in Weight 203 lb BMI 31.8 BP 120/80 Blood Pressure Location Rt brachial Position Sitting Respiration 16 Pulse 77 Pulse Source Pulse Oximeter Temp 98.1 F Temp Source Oral Pulse Oximetry (%) 98 Oxygen Delivery Method Room Air Intake Visit Reasons: EP rash on LT arm Intake Note: Pt is here today c/o Rash on Lt arm Patient Tobacco Use Status: Current someday Tobacco user Allergies Penicillins [PENICILLINS] Allergy (Severe, Verified 01/29/25 11:19) HIVES Medication List - Last Reconciled 01/29/25 by Kathleen Mendez, BEHAVIOR INTERVENTIONIST-BC azathioprine 50 mg PO DAILY 90 days chlorthalidone 25 mg PO DAILY infliximab (Remicade) 500 mg IV Q8W 56 days omeprazole 20 mg PO DAILY PRN zinc acetate (Galzin) 50 mg PO DAILY HPI HPI Comments 2 History of Present Illness0 Details History of Present Illness - The patient is a 39-year-old male pres enting with a rash on the left arm. - Rash onset last Friday - Previous history of dermatitis; no rec ent symptoms until the current rash. - Rash is sometimes itchy, not painful, resistant to hydrocortisone. - Rash originated small, now enlarged to cover the forearm. - Denies new plant exposure, considers w eather as factor. Review of Systems - Skin: Reports a rash on the left arm t hat is sometimes itchy, not painful. - General: Reports feeling generally wel l aside from the rash. - Respiratory: Denies shortness of breat h or respiratory issues. - Neurological: Denies neurological symp toms. Physical Exam Left arm, no warmth or signs of infection Discussion Notes I discussed with the patient that the rash on his left arm is likely exacerbated dermatitis. We talked about the importance of managing this condition with appropriate topical treatments. I recommended applying betamethasone, a much stronger steroid cream than hydrocortisone, twice daily for two weeks. I also stressed the need to monitor the rash and stop the treatment if significant improvement is noticed, allowing the skin to rest before possibly resuming. Levocetrizine 5mg po QD to help as well. We reviewed follow-up instructions, including the need to seek further evaluation if the rash worsens or does not improve. The necessity of potentially consulting a elementary assistant principal was addressed, which would require a referral from his primary care doctor. Consent to treatment and photograph documentation for his chart was obtained during the visit. Assessment and Plan 1. Dermatitis - Provide betamethasone cream twice william y for two weeks. Levocetrizine 5mg po QD to help as wel - Consider stopping treatment for a marlen k if rash improves. - Monitor worsening or lack of improveme nt for possible referral need. Patient Instructions - Apply betamethasone cream twice a day for two weeks. - Stop the treatment for one week if the rash gets better, then start again if needed. - Watch the rash to see if it gets worse or doesn?t improve, and if it does, follow up with your primary care doctor. - Go to see your main doctor if you thin k you need a dermatology specialist. Consent Patient was informed and verbally consented to the use of an ambient scribe for clinic note documentation during this visit. [facility] Medical History (Updated 12/22/24 @ 16:15 by Evan Montana MD) Crohn's disease involving terminal ileum Crohns disease of small intestine Dyspnea on exertion Retroperitoneal fibrosis Surgical History History of esophagogastroduodenoscopy (EGD) Hx of colonoscopy Social History (Updated 12/22/24 @ 15:18 by Makayla Johnson [facility]) Patient Tobacco Use Status: Current someday Tobacco user service: No Current occupational status: employed Physical Exam Vital Signs: Last Vital Signs Temp 98.1 F 01/29/25 11:04 Pulse 77 01/29/25 11:04 Resp 16 01/29/25 11:04 BP 120/80 01/29/25 11:04 Pulse Ox 98 01/29/25 11:04 Oxygen Delivery Method Room Air 01/29/25 11:04 BMI result Body Mass Index 31.8 Assessment & Plan Assessment & Plan (1) Dermatitis: Code(s): L30.9 - Dermatitis, unspecified Plan . Medications: New 2 levocetirizine 5 mg PO DAILY PRN 30 tabs 0RF itching NS betamethasone dipropionate 0.05% apply for 2 weeks, then stop for 1 week, continue until resolved. 1 appl topical DAILY PRN 45 grams 0RF skin irritation Coding Level of Care Code Est Pt Level 3 (97745) Diagnoses Dermatitis L30.9
[2025-01-29 11:04] VITALS: BP 120/80; PULSE 77; RESP 16; TEMP 36.7; O2SAT 98; BMI 31.8
== END 2025-01-29 11:43 | disposition home or self-care (01) ==
PROVIDERS: PCP Internal Medicine; Visit Provider Nurse Practitioner Family
DX: L30.9 Dermatitis, unspecified (principal)

== ENCOUNTER → 2025-01-29 10:50 | Outpatient (BNVA) | payer OTHER, SELFPAY | PROVIDERS: PCP Internal Medicine; Visit Provider Nurse Practitioner Family | DX: L30.9 Dermatitis, unspecified (principal) | CPT/HCPCS: 99212 ==

== ENCOUNTER 2025-02-09 16:02 | Outpatient (AMB) | payer OTHER, SELFPAY ==
[2025-02-09 16:02] VITALS: BP 134/90; PULSE 74; TEMP 36.6; O2SAT 98; BMI 31.3
--- NOTE | 2025-02-09 16:02 | MHC.OFFWIV ---
Intake Vital Signs 02/09/25 16:02 Height 5 ft 7 in Weight 200 lb BMI 31.3 BP 134/90 H Blood Pressure Location Lt brachial Position Sitting Pulse 74 Pulse Source Pulse Oximeter Temp 97.9 F Temp Source Oral Pulse Oximetry (%) 98 Oxygen Delivery Method Room Air Intake Visit Reasons: EP Stitch removal Intake Note: Pt presents to the office today for suture removal. Pt states he had sutures put in his lower back in [place] at an urgent care on 01/24/25. Patient Tobacco Use Status: Current someday Tobacco user Allergies Penicillins [PENICILLINS] Allergy (Severe, Verified 02/09/25 16:05) HIVES HPI HPI Comments History of Present Illness Details History of Present Illness - The patient is a 39-year-old male presenting for removal of stitches. - Stitches were initially placed during , following a laceration from a sharp object in the left buttock. - The laceration and subsequent stitches did not necessitate an emergency room visit; care was received at an urgent care facility in [place]. - The advised period for stitches retention was 14 days; the current visit is occurring on day 16. - Laceration site is closed with 14 stitches. - He denies fever, chills, discharge, bleeding, numbness, tingling, redness, or warmth. Physical Exam General: Cooperative, healthy appearing, comfortable, no acute distress and well developed Respiratory: Normal respiratory effort and able to speak in complete sentences. Clear to auscultation bilaterally Cardiovascular: Regular rate and rhythm. Normal S1 and S2 Skin: No rashes or lesions noted Neuro: Sensation intact. Extremities: Vertical laceration noted on the left buttock with sutures intact. Crusting noted. No induration noted. No redness noted. Procedure- suture removal - Area cleaned with normal saline. #14 SIS removed from the left buttock. Bacitracin applied and bandaid. Procedure was well tolerated. No complications. Patient was informed and verbally consented to the use of an ambient scribe for clinic note documentation during this visit. [facility] Medical History Dyspnea on exertion Retroperitoneal fibrosis Crohn's disease involving terminal ileum Crohns disease of small intestine Surgical History History of esophagogastroduodenoscopy (EGD) Hx of colonoscopy Social History Patient Tobacco Use Status: Current someday Tobacco user service: No Current occupational status: employed Review of Systems Const All systems reviewed & are unremarkable except as noted in HPI and below Physical Exam Vital Signs: Last Vital Signs Temp 97.9 F 02/09/25 16:02 Pulse 74 02/09/25 16:02 BP 134/90 H 02/09/25 16:02 Pulse Ox 98 02/09/25 16:02 Oxygen Delivery Method Room Air 02/09/25 16:02 BMI result Body Mass Index 31.3 Assessment & Plan Assessment & Plan (1) Encounter for re-check of laceration wound: Code(s): T14.8XXD - Other injury of unspecified body region, subsequent encounter (2) Visit for suture removal: Code(s): Z48.02 - Encounter for removal of sutures Plan Most likely well healing wound Plan - Proceed with the suture removal as it has surpassed the advised retention period of 14 days. - Keep area clean and dry. - Expect minimal discomfort during the removal procedure. - Ensure that healing appears appropriate before removal. - Recommend avoiding strenuous activity on the affected area post-procedure for optimal healing. Coding Level of Care Code New Pt Level 3 (71667) Diagnoses Encounter for re-check of laceration wound T14.8XXD Visit for suture removal Z48.02
--- OUTSIDE RECORDS SUMMARY | 2025-02-09 18:11 | XMS_ITS | Clinical Summary ---
Demographics Address [address] [place] [address] Mobile Phone Home Phone Preferred Language Hungarian Marital Status Religion Affiliation Unknown Race White Ethnic Group or Author Organization [facility] Address [address] [place] [address] Support Name Relationship Address Phone Yesandrew Arrieta Spouse [address] [place] [address] Care Team Providers Care Junior Sales Representative Name Role Phone Roni Smith MD Primary Care Provider [phone] Source Comments PLEASE NOTE, if this patient [...] of Treatment Not on file Care Teams Junior Sales Representative Relationship Specialty Start Date End Date Roni Smith MD [address] [place] [address] PCP - General Internal Medicine 01/22/19
== END 2025-02-09 16:21 | disposition home or self-care (01) ==
PROVIDERS: PCP Internal Medicine; Visit Provider Physician Assistant Medical
DX: T14.8XXA Other injury of unspecified body region, initial encounter (principal); Z48.02 Encounter for removal of sutures

== ENCOUNTER → 2025-02-09 16:02 | Outpatient (BNVA) | payer OTHER, SELFPAY | PROVIDERS: PCP Internal Medicine; Visit Provider Physician Assistant Medical | DX: Z48.02 Encounter for removal of sutures (principal); T14.8XXD Other injury of unspecified body region, subsequent encounter | CPT/HCPCS: 99212 ==